=== PATIENT | male | born 1960 | race Caucasian/White ===

== ENCOUNTER → 2017-09-24 | Outpatient (CLI) | payer BC ==
[~2017-09-24] MED LIST: BENA20TA2 PO; BNZ40T PO; DILT240C90 PO; INSASP10V SC; INSU100I23 SC; INSU100I29 SC; INSU100V SQ; METF-380 PO; METF1000 PO; NIAC125C3 PO; NIAC1CAP PO; NIAC500T24 PO; levamir SQ
== END ==
LOC: CARD 11:46
PROVIDERS: ATTEND Nurse Practitioner Family
DX: I48.92 Unspecified atrial flutter (principal); I35.8 Other nonrheumatic aortic valve disorders; I34.0 Nonrheumatic mitral (valve) insufficiency; I07.1 Rheumatic tricuspid insufficiency; I10 Essential (primary) hypertension
CPT/HCPCS: 93306

== ENCOUNTER 2018-02-05 08:22 | Emergency (ER) | payer BC ==
[~2018-02-05] VITALS: Ht 182.9 cm; Wt 122.5 kg
[~2018-02-05 08:22] MED LIST changes: -METF1000 PO; +METF10002 PO
[2018-02-05 08:40] LABS: BASOPHILS # (AUTO) 0.1 10^3/uL (0.0-0.1); BASOPHILS % (AUTO) 1 % (0-10); EOSINOPHILS # (AUTO) 0.2 10^3/uL (0.0-0.3); EOSINOPHILS % (AUTO) 3 % (0-10); HEMATOCRIT 48 % (40-54); HEMOGLOBIN 16.8 G/DL (13.3-17.7); LYMPHOCYTES # (AUTO) 1.9 X 10^3 (1.0-4.0); LYMPHOCYTES % (AUTO) 20 % (12-44); MEAN CORPUSCULAR HEMOGLOBIN 30 PG (25-34); MEAN CORPUSCULAR HGB CONC 35 G/DL (32-36); MEAN CORPUSCULAR VOLUME 87 FL (80-99); MEAN PLATELET VOLUME 9.2 FL (7.4-10.4); MONOCYTES # (AUTO) 0.6 X 10^3 (0.0-1.0); MONOCYTES % (AUTO) 7 % (0-12); NEUTROPHILS # (AUTO) 6.6 X 10^3 (1.8-7.8); NEUTROPHILS % (AUTO) 70 % (42-75); PLATELET COUNT 355 10^3/uL (130-400); RED BLOOD COUNT 5.55 10^6/uL (4.35-5.85); RED CELL DISTRIBUTION WIDTH 13.4 % (10.0-14.5); WHITE BLOOD COUNT 9.4 10^3/uL (4.3-11.0)
[2018-02-05 08:56] LABS: INR 1.1 (0.8-1.4); PROTHROMBIN TIME PATIENT 14.5 SEC (12.2-14.7)
[2018-02-05] MEDS ORDERED: DILTIAZEM 240 MG (CARDIZEM CD) CAP PO ONE (09:00)
[2018-02-05 09:03] LABS: ALANINE AMINOTRANSFERASE 19 U/L (0-55); ALBUMIN 4.1 GM/DL (3.2-4.5); ALKALINE PHOSPHATASE 101 U/L (40-136); BILIRUBIN,TOTAL 0.5 MG/DL (0.1-1.0); BUN/CREATININE RATIO 19; CALCIUM 9.3 MG/DL (8.5-10.1); CARBON DIOXIDE 24 MMOL/L (21-32); CHLORIDE 102 MMOL/L (98-107); CREATININE SERUM 1.18 MG/DL (0.60-1.30); GFR ESTIMATED > 60; GLUCOSE 238 MG/DL (70-105); POTASSIUM 4.3 MMOL/L (3.6-5.0); SODIUM 138 MMOL/L (135-145); TOTAL PROTEIN 6.6 GM/DL (6.4-8.2)
[2018-02-05 09:09] LABS: MYOGLOBIN SERUM 70.7 NG/ML (10.0-92.0)
--- NOTE | 2018-02-05 09:17 | Diagnostic Imaging Report ---
INDICATION: Atrial fibrillation. EXAMINATION: Frontal chest obtained at 08:59 hours a.m. and compared with 05/01/2015. FINDINGS: Heart and mediastinal silhouette are normal in appearance. The lungs are clear. There is no pneumothorax or pleural fluid. IMPRESSION: Negative chest. Dictated by: Dictated on workstation # [id number]
--- NOTE | 2018-02-05 10:28 | ED Cardiac General ---
History of Present Illness General Chief Complaint: Cardiac/General Problems Stated Complaint: FLUTTERING IN CHEST Nursing Triage Note: PMH OF A FIB HAS HAD IRREGULAR HR SINCE LAST NIGHT. Source: patient Exam Limitations: no limitations History of Present Illness Date Seen by Provider: Feb 05, 2018 Time Seen by Provider: 08:27 Initial Comments This 57-year-old gentleman presents to the emergency room with complaints of tachycardia and palpitations started last night and have been persistent since. He has a history of paroxysmal atrial fibrillation/flutter. He is already anticoagulated on Eliquis and has taken his dose this morning. He also takes diltiazem XT 240 mg. He is current on his doses. He additionally takes metoprolol 25 mg daily. He denies any chest pain or shortness of breath. 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 He is noted to be in atrial flutter with rapid ventricular response on the monitor. Allergies and Home Medications Allergies Coded Allergies: No Known Drug Allergies (Unverified , 06/24/12) Home Medications Benazepril HCl 20 Mg Tablet, 20 MG PO DAILY, (Reported) Diltiazem HCl 240 Mg Cap.er.24h, 240 MG PO DAILY Prescribed by: SULAIMAN CARRINGTON on 05/03/15 1857 Diltiazem HCl 360 Mg Cap.er.24h, 360 MG PO DAILY Prescribed by: HEYDI WRAY on 02/05/18 1040 Insulin Detemir 100 Unit/1 Ml Insuln.pen, 42-44 UNITS SC HS, (Reported) Insulin Lispro 100 Unit/1 Ml Insuln.pen, 16 UNITS SC AC, (Reported) Metformin HCl 1,000 Mg Tablet, 1,000 MG PO BID, (Reported) Niacin (Inositol Niacinate) 500 Mg Capsule, 1,000 MG PO DAILY, (Reported) TAKES 2 (500MG) CAPSULES Patient Home Medication List Home Medication List Reviewed: Yes Review of Systems Constitutional: no symptoms reported EENTM: No Symptoms Reported Respiratory: No Symptoms Reported Cardiovascular: See HPI Gastrointestinal: No Symptoms Reported Genitourinary: No Symptoms Reported Musculoskeletal: no symptoms reported Skin: no symptoms reported Psychiatric/Neurological: No Symptoms Reported Endocrine: No Symptoms Reported Past Pzpdvue-Scoqeo-Iwlimw Hx Patient Social History Alcohol Use: Denies Use Recreational Drug Use: No Smoking Status: Never a Smoker Recent Foreign Travel: No Contact w/Someone Who Travel: No Recent Infectious Disease Expo: No Seasonal Allergies Seasonal Allergies: No Past Medical History Surgeries: Yes (uvulectomy, NECK FUSION (C5-C7)) Orthopedic Respiratory: Yes (C-PAP) Sleep Apnea Currently Using CPAP: Yes Cardiac: Yes Atrial Fibrillation, Hypertension Neurological: No Reproductive Disorders: No Gastrointestinal: No Musculoskeletal: No Endocrine: Yes Diabetes, Insulin dep, Diabetes, Non-Insulin dep Cancer: No Psychosocial: No Integumentary: No Blood Disorders: No Family Medical History Diabetes mellitus 19 MOTHER Lip cancer 19 FATHER Parkinson's disease 19 FATHER Diabetes Physical Exam Vital Signs Vital Signs - First Documented 02/05/18 08:22 Temp 98.0 Pulse 124 Resp 18 B/P (MAP) 133/104 (114) Pulse Ox 97 O2 Delivery Room Air Capillary Refill : Less Than 3 Seconds General Appearance: No Apparent Distress, WD/WN HEENT: PERRL/EOMI, Normal ENT Inspection Neck: Normal Inspection Respiratory: Lungs Clear, Normal Breath Sounds, No Accessory Muscle Use, No Respiratory Distress Cardiovascular: No Edema, No Murmur, Tachycardia Gastrointestinal: Non Tender, Soft Extremity: Normal Inspection, No Pedal Edema Neurologic/Psychiatric: Alert, Oriented x3, No Motor/Sensory Deficits, Normal 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, 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 Norm as Tested Skin: Normal Color, Warm/Dry Progress/Results/Core Measures Results/Orders Lab Results Laboratory Tests Test 02/05/18 08:32 Range/Units White Blood Count 9.4 4.3-11.0 10^3/uL Red Blood Count 5.55 4.35-5.85 10^6/uL Hemoglobin 16.8 13.3-17.7 G/DL Hematocrit 48 40-54 % Mean Corpuscular Volume 87 80-99 FL Mean Corpuscular Hemoglobin 30 25-34 PG Mean Corpuscular Hemoglobin Concent 35 32-36 G/DL Red Cell Distribution Width 13.4 10.0-14.5 % Platelet Count 355 130-400 10^3/uL Mean Platelet Volume 9.2 7.4-10.4 FL Neutrophils (%) (Auto) 70 42-75 % Lymphocytes (%) (Auto) 20 12-44 % Monocytes (%) (Auto) 7 0-12 % Eosinophils (%) (Auto) 3 0-10 % Basophils (%) (Auto) 1 0-10 % Neutrophils # (Auto) 6.6 1.8-7.8 X 10^3 Lymphocytes # (Auto) 1.9 1.0-4.0 X 10^3 Monocytes # (Auto) 0.6 0.0-1.0 X 10^3 Eosinophils # (Auto) 0.2 0.0-0.3 10^3/uL Basophils # (Auto) 0.1 0.0-0.1 10^3/uL Prothrombin Time 14.5 12.2-14.7 SEC INR Comment 1.1 0.8-1.4 Activated Partial Thromboplast Time 39 H 24-35 SEC Sodium Level 138 135-145 MMOL/L Potassium Level 4.3 3.6-5.0 MMOL/L Chloride Level 102 98-107 MMOL/L Carbon Dioxide Level 24 21-32 MMOL/L Anion Gap 12 5-14 MMOL/L Blood Urea Nitrogen 23 H 7-18 MG/DL Creatinine 1.18 0.60-1.30 MG/DL Estimat Glomerular Filtration Rate > 60 BUN/Creatinine Ratio 19 Glucose Level 238 H 70-105 MG/DL Calcium Level 9.3 8.5-10.1 MG/DL Magnesium Level 2.0 1.8-2.4 MG/DL Total Bilirubin 0.5 0.1-1.0 MG/DL Aspartate Amino Transf (AST/SGOT) 15 5-34 U/L Alanine Aminotransferase (ALT/SGPT) 19 0-55 U/L Alkaline Phosphatase 101 40-136 U/L Myoglobin 70.7 10.0-92.0 NG/ML Troponin I < 0.30 <0.30 NG/ML Total Protein 6.6 6.4-8.2 GM/DL Albumin 4.1 3.2-4.5 GM/DL My Orders Orders - HEYDI HEAD MD Cbc With Automated Diff (02/05/18 08:27) Magnesium (02/05/18 08:27) Chest 1 View, Ap/Pa Only (02/05/18:) Ekg Tracing (02/05/18:) Cardiac Profile 1 (02/05/18 08:) Comprehensive Metabolic Panel (02/05/18 08:) Myoglobin Serum (02/05/18 08:27) Protime With Inr (02/05/18 08:27) Partial Thromboplastin Time (02/05/18 08:27) O2 (02/05/18 08:27) Monitor-Rhythm Ecg Trace Only (02/05/18 08:27) Saline Lock/Iv-Start (02/05/18 08:27) Diltiazem Cd 24 Hr Capsule (Cardizem Cd (02/05/18 09:00) Medications Given in ED Vital Signs/I&O 02/05/18 02/05/18 08:22 10:44 Temp 98.0 Pulse 124 81 Resp 18 18 B/P (MAP) 133/104 (114) 116/71 Pulse Ox 97 98 O2 Delivery Room Air Blood Pressure Mean: 114 Progress Progress Note : Time: 10:34 Progress Note Case was reviewed with Dr. Valencia who recommended giving an additional dose of diltiazem 240 orally now. He advised watching the patient for one hour and potentially dismissing home if heart rate was acceptable. Heart rate is now in the 80s to 110s. Patient is feeling fine. Dr. Valencia recommended increasing his diltiazem to 360 mg to start tomorrow. Patient will continue on Eliquis. Diagnostic Imaging Diagonstic Imaging: Xray Plain Films/CT/US/NM/MRI: chest Comments Chest x-ray viewed by me and report reviewed. See report below: NAME: GARRETT THAYER [facility] REC#: [id number] PT STATUS: REG ER : 1960 PHYSICIAN: HEYDI HEAD MD ADMIT DATE: 02/05/18/ER Draft Date of Exam:02/05/18 CHEST 1 VIEW, AP/PA ONLY INDICATION: Atrial fibrillation. EXAMINATION: Frontal chest obtained at 08:59 hours a.m. and compared with 05/01/2015. FINDINGS: Heart and mediastinal silhouette are normal in appearance. The lungs are clear. There is no pneumothorax or pleural fluid. IMPRESSION: Negative chest. Dictated on workstation # [id number] Dict: 02/05/18910 Trans: 02/05/18 0917 [facility] [id number] Interpreted by: SHIRLENE SEGURA MD Departure Impression Primary Impression: Atrial flutter with rapid ventricular response Disposition: 01 HOME, SELF-CARE Condition: Improved Departure-Patient Inst. Decision time for Depature: 10:20 Referrals: FARIHA CRAFT MD (PCP/Family) Primary Care Physician Patient Instructions: Atrial Flutter Add. Discharge Instructions: Continue taking Eliquis as previously prescribed. Increase her diltiazem to 360 mg dose prescribed today. Please contact Dr. Cadet's office as soon as possible to schedule follow-up. Return to emergency room if you have worsening symptoms. All discharge instructions reviewed with patient and/or family. Voiced understanding. Scripts Diltiazem HCl (Diltiazem 24Hr Cd) 360 Mg Cap.er.24h 360 MG PO DAILY, #30 CAP Prov: HEYDI HEAD MD 02/05/18 Copy Copies To 1: JO[facility] VALENCIA MD [facility] HEYDI HEAD MD Feb 05, 2018 10:28
[2018-02-05] MEDS ORDERED: DILT360C29 PO (10:40)
[2018-02-05 10:44] VITALS: BP 116/71
== END 2018-02-05 10:44 | disposition home or self-care (01) ==
LOC: EDUNIT# 08:22 → ER 08:24
DX: I48.92 Unspecified atrial flutter (principal); I48.0 Paroxysmal atrial fibrillation; G47.30 Sleep apnea, unspecified; I10 Essential (primary) hypertension; E11.9 Type 2 diabetes mellitus without complications; Z79.01 Long term (current) use of anticoagulants; Z79.4 Long term (current) use of insulin; Z98.1 Arthrodesis status; Z85.818 Personal history of malignant neoplasm of other sites of lip, oral cavity, and pharynx; Z90.89 Acquired absence of other organs
CPT/HCPCS: 36415; 71045; 80053; 83735; 83874; 84484; 85025; 85610; 85730; 93005; 93041

== ENCOUNTER → 2018-02-21 | Outpatient (CLI) | payer BC ==
[~2018-02-21] MED LIST changes: +DILT360C29 PO
== END ==
LOC: CARD 14:51
PROVIDERS: ATTEND Nurse Practitioner Family
DX: I48.0 Paroxysmal atrial fibrillation (principal); I10 Essential (primary) hypertension; I71.2 Thoracic aortic aneurysm, without rupture; E11.59 Type 2 diabetes mellitus with other circulatory complications
CPT/HCPCS: 93225; 93226

== ENCOUNTER → 2018-03-12 | Outpatient (CLI) | payer BC ==
[~2018-03-12] MED LIST changes: +ALPR0.5T7 PO; +APIX5TAB PO; -BENA20TA2 PO; +BENA20TA7 PO; +CATHETER FLUSH 10 ML SYR IV PRN; +DILT360C36 PO; +ESCI10TA55 PO; +INSU100I14 SC; +METO-387 PO; +REGADENOSON 0.4 MG/5 ML SYR (LEXISCAN) IV ONE
[2018-03-12 09:08] VITALS: BP 142/99
[2018-03-12 09:10] VITALS: BP 123/87
--- NOTE | 2018-03-14 13:12 | STRESS TEST ---
DATE OF SERVICE: 03/12/2018 RESTING AND POST REGADENOSON TECHNETIUM 99M TETROFOSMIN SPECT CT IMAGING ORDERING PHYSICIAN: Mimi Parrish APRN PRIMARY PHYSICIAN: Antonio Hawthorne MD. CLINICAL DIAGNOSES: Palpitations. Baseline images were carried out after injection of 10.98 mCi of technetium-99m Tetrofosmin. This was followed by 0.4 mg regadenoson and 30.2 mCi technetium-99m Tetrofosmin for stress imaging. The patient reported lightheadedness and abdominal cramping following regadenoson infusion, which resolved in a few minutes. The electrocardiogram showed atrial flutter with a rapid ventricular response throughout the study. Review of images at rest and following stress does not indicate any significant myocardial ischemia or infarction. Gated images show normal global left ventricular systolic function. Normal regional wall motion. Left ventricular ejection fraction is calculated to be 58%. CONCLUSIONS: 1. No evidence of significant myocardial ischemia or infarction on this study. 2. Normal regional wall motion. 3. Normal global left ventricular systolic function with a calculated ejection fraction of 58%. 4. Atrial flutter with a rapid ventricular response is seen throughout the study. Job ID: [id number] DocumentID: [id number] Dictated Date: 03/14/2018 12:45:18 Car Lubricator Date: 03/14/2018 13:10:58 Dictated By: JOSE FREDERICK MD, MA, FACP, FACC,
== END ==
LOC: CARD 07:33
PROVIDERS: ATTEND Nurse Practitioner Family
DX: R00.2 Palpitations (principal); I48.92 Unspecified atrial flutter
CPT/HCPCS: 78452; 93017

== ENCOUNTER 2018-03-19 09:02 | Day surgery (SDC) | payer BC ==
[~2018-03-19] VITALS: Ht 182.9 cm; Wt 122.5 kg
[2018-03-19] VITALS (14 sets, daily range): BP systolic 118–136; BP diastolic 74–92
[~2018-03-19 09:02] MED LIST changes: -ALPR0.5T7 PO; -APIX5TAB PO; -CATHETER FLUSH 10 ML SYR IV PRN; -DILT360C36 PO; -ESCI10TA55 PO; -INSU100I14 SC; -METO-387 PO; -REGADENOSON 0.4 MG/5 ML SYR (LEXISCAN) IV ONE
[2018-03-19] MEDS ORDERED: NS IV 1000 ML 1,000 ML ONE (09:22)
[2018-03-19 09:57] LABS: MEAN PLATELET VOLUME 9.2 FL (7.4-10.4); RED BLOOD COUNT 5.03 10^6/uL (4.35-5.85); RED CELL DISTRIBUTION WIDTH 13.1 % (10.0-14.5); WHITE BLOOD COUNT 7.2 10^3/uL (4.3-11.0)
[2018-03-19] MEDS ORDERED: NS IV 1000 ML 1,000 ML IV SCH (10:00)
[2018-03-19 10:08] LABS: INR 1.2 (0.8-1.4); PROTHROMBIN TIME PATIENT 14.8 SEC (12.2-14.7)
[2018-03-19 10:18] LABS: ALANINE AMINOTRANSFERASE 21 U/L (0-55); ALKALINE PHOSPHATASE 82 U/L (40-136); BILIRUBIN,TOTAL 0.6 MG/DL (0.1-1.0); BUN/CREATININE RATIO 19; CARBON DIOXIDE 29 MMOL/L (21-32); CHLORIDE 103 MMOL/L (98-107); CHOLESTEROL 195 MG/DL (< 200); CREATININE SERUM 1.09 MG/DL (0.60-1.30); GFR ESTIMATED > 60; GLUCOSE 194 MG/DL (70-105); HDL CHOLESTEROL 40 MG/DL (40-60); POTASSIUM 4.8 MMOL/L (3.6-5.0); SODIUM 138 MMOL/L (135-145); TOTAL PROTEIN 6.2 GM/DL (6.4-8.2); TRIGLYCERIDES 68 MG/DL (<150); VLDL CHOLESTEROL 14 MG/DL (5-40)
[2018-03-19] MEDS ORDERED: ESCI10TA55 PO (10:50)
[2018-03-19] MEDS ORDERED: DILT360C36 PO (10:50)
[2018-03-19] MEDS ORDERED: INSU100I14 SC (10:50)
[2018-03-19] MEDS ORDERED: ALPR0.5T7 PO (10:50)
[2018-03-19] MEDS ORDERED: METO-387 PO (10:50)
[2018-03-19] MEDS ORDERED: APIX5TAB PO (10:50)
[2018-03-19] MEDS ORDERED: MIDAZOLAM 2 MG/2 ML (VERSED) VIAL ONE (11:14)
[2018-03-19] MEDS ORDERED: proPOfol 200 MG/20 ML (DIPRIVAN) VIAL IV ONE (11:14)
--- NOTE | 2018-03-19 11:45 | Cardiac Procedure Note-CS/ASA ---
Pre-Procedure Note Pre-Op Procedure Note H&P Reviewed The H&P was reviewed, patient examined and no changes noted. Date H&P Reviewed: Mar 19, 2018 Time H&P Reviewed: 11:25 Conscious Sedation Pre-Proced Time Reviewed: 11:25 ASA Class: 3 Airway Mallampati Classification: ([place] appropriate class) I. II. III, IV Lungs Heart ASA score ASA 1: a normal healthy patient ASA 2: a patient with a mild systemic disease (mid diabetes, controlled hypertension, obesity ASA 3: a patient with a severe systemic disease that limits activity (angina , COPD, prior Myocardial infarction) ASA 4: a patient with an incapacitating disease that is a constant threat to life (CHF, renal failure) ASA 5: a moribund patient not expected to survive 24 hrs. (ruptured aneurysm) ASA 6: a declared brain patient whose organs are being harvested. For emergent operations, add the letter E after the classification Grade 2 Sedation Plan: Analgesia, Amnesia, Plan communicated to team members, Discussed options with patient/fam, Discussed risks with patient/fam Note The patient is an appropriate candidate to undergo the planned procedure, sedation, and anesthesia. The patient immediately re-assessed prior to indication. JOSE FREDERICK MD FACP FAC CCDS Mar 19, 2018 11:45
--- NOTE | 2018-03-19 11:47 | Discharge Inst-Cardiology ---
Discharge Inst-Cardiac Discharge Medications Continued Medications: Alprazolam (Alprazolam) 0.5 Mg Tablet 0.5 MG PO TID PRN for ANXIETY, TAB Apixaban (Eliquis) 5 Mg Tablet 5 MG PO BID, TAB Benazepril HCl (Benazepril HCl) 20 Mg Tablet 20 MG PO DAILY, TAB Diltiazem HCl (Diltiazem 24Hr ER) 360 Mg Cap.er.24h 360 MG PO DAILY, CAP Escitalopram Oxalate (Escitalopram Oxalate) 10 Mg Tablet 10 MG PO HS, TAB Insulin Aspart (Novolog Flexpen) 300 Units/3 Ml Solution 12 UNITS SC AC, EA Insulin Detemir (Levemir Flextouch) 100 Unit/1 Ml Insuln.pen 48 UNITS SC HS, EA Metformin HCl (Metformin HCl) 1,000 Mg Tablet 1000 MG PO BID WITH MEALS, TAB Metoprolol Succinate (Metoprolol Succinate) 25 Mg Tab.er.24h 25 MG PO HS, TAB Niacin (Inositol Niacinate) (Niacin 500 mg Capsule) 500 Mg Capsule 1000 MG PO DAILY, CAP TAKES 2 (500MG) CAPSULES Patient Instructions Patient Instructions: F/u with Dr Valencia in 6 weeks JOSE VALENCIA MD FACP FAC CCDS Mar 19, 2018 11:47
--- NOTE | 2018-03-19 13:08 | Anesthesia-Procedure Note ---
Procedures/Interventions Procedure Start/Stop/Diagnosis Date of Procedure: Mar 19, 2018 Start Time: 11:28 Referring Physician: Erik Preprocedural Diagnosis: Atrial Flutter Brief History Called to blood bank laboratory technician for cardioversion of pt with new onset Atrial Flutter. ASA 3. All monitors applied and emergency equipment verified. NPO status confirmed. O2 per NC at 4lpm. Pt was given propofol boluses for a total of 100mg. Cardioversion successful with conversion to SR. Recovered pt in room until opening eyes. Report given to RN Stop Time: 11:40 Postprocedural Diagnosis: Atrial Flutter ANA LAURA RIOS CRNA Mar 19, 2018 13:08
--- NOTE | 2018-03-19 17:26 | OPERATIVE REPORT ---
DATE OF SERVICE: 03/19/2018 PREOPERATIVE DIAGNOSIS: Atrial flutter. POSTOPERATIVE DIAGNOSIS: Sinus rhythm. INDICATION: The patient is a 57-year-old man who has atrial flutter that has persisted for several weeks. He has been fully treated with apixaban for several weeks without any interruption. He is on beta-blockers and calcium channel blockers. DESCRIPTION OF PROCEDURE: External electrical cardioversion was carried out today after having obtained an informed consent. The nursing home assistant administrator delivered short-acting anesthesia and 50 joules synchronized shock was delivered through external patches, which restored sinus rhythm. He tolerated the procedure well. Job ID: [id number] DocumentID: [id number] Dictated Date: 03/19/2018 11:58:07 Cost Control Specialist Date: 03/19/2018 17:25:40 Dictated By: JOSE FREDERICK MD, MA, FACP, FACC,
== END 2018-03-19 14:00 | disposition home or self-care (01) ==
LOC: CATH 09:02
PROVIDERS: ATTEND Internal Medicine Cardiovascular Disease
DX: I48.92 Unspecified atrial flutter (principal); I71.4 Abdominal aortic aneurysm, without rupture; I35.8 Other nonrheumatic aortic valve disorders; E11.9 Type 2 diabetes mellitus without complications; I10 Essential (primary) hypertension; G47.33 Obstructive sleep apnea (adult) (pediatric); E66.9 Obesity, unspecified; Z68.36 Body mass index [BMI] 36.0-36.9, adult; Z79.01 Long term (current) use of anticoagulants; Z79.4 Long term (current) use of insulin; Z79.899 Other long term (current) drug therapy
CPT/HCPCS: 36415; 80053; 80061; 85027; 85610; 85730; 87081; 92960; 93005

== ENCOUNTER 2018-05-07 09:41 | Day surgery (SDC) | payer BC ==
[2018-05-07] VITALS (11 sets, daily range): BP systolic 99–135; BP diastolic 2–86
[~2018-05-07] VITALS: Ht 185.4 cm; Wt 124.7 kg
[~2018-05-07 09:41] MED LIST changes: +ALPR0.5T7 PO; +APIX5TAB PO; +DILT360C36 PO; +ESCI10TA55 PO; +INSU100I14 SC; +METF-399 PO; -METF10002 PO; +METO-387 PO
--- OUTSIDE RECORDS SUMMARY | 2018-05-07 09:50 | XMS REPORT | Continuity of Care Document ---
Author Author [facility] Organization [facility] Address Unknown Phone Unavailable Allergies Active Description Code Type Severity Reaction Onset Reported/Identified Relationship to Patient Clinical Status Yes No Known Drug Allergies [id number] Drug Allergy Unknown N/A 06/24/2012 Medications There is no data. Problems Date Dx Coded Attending Type Code Diagnosis Diagnosed By 06/24/2012 Ot 250.00 DIAB ADA WO COMPL, TYPE II OR UNSPEC TY 06/24/2012 Ot 272.0 PURE HYPERCHOLESTEROLEM 06/24/2012 Ot 401.9 HYPERTENSION NOS 06/24/2012 Ot V58.69 OTH MED,LT, CURRENT USE 06/24/2012 Ot V76.51 SCREEN MAL NEOP-COLON 05/03/2015 SULAIMAN CARRINGTON MD Ot 250.00 DIAB ADA WO COMPL, TYPE II OR UNSPEC TY 05/03/2015 SULAIMAN CARRINGTON MD Ot 278.00 OBESITY, NOS 05/03/2015 SULAIMAN CARRINGTON MD Ot 327.23 OBSTRUCTIVE SLEEP APNEA (ADULT) (PEDIATR 05/03/2015 SULAIMAN CARRINGTON MD Ot 401.9 HYPERTENSION NOS 05/03/2015 SULAIMAN CARRINGTON MD Ot 426.13 AV BLOCK-2ND DEGREE NEC 05/03/2015 SULAIMAN CARRINGTON MD Ot 427.32 ATRIAL FLUTTER 05/03/2015 SULAIMAN CARRINGTON MD Ot 722.6 DISC DEGENERATION NOS 05/03/2015 SULAIMAN CARRINGTON MD Ot V03.82 PROPHYLACTIC VACC AGAINST STREPTOCOCCUS 05/03/2015 SULAIMAN CARRINGTON MD Ot V85.38 BODY MASS INDEX 38.0-38.9, ADULT 07/13/2015 Ot 722.4 07/13/2015 Ot V72.84 07/27/2015 YOLY DONOHUE FACJens, JOSE BEARDP CCDS Ot E11.59 07/27/2015 YOLY DONOHUE FACC, JOSE FACP CCDS Ot G47.30 07/27/2015 YOLY BEARDC, ALI FACP CCDS Ot I10 07/27/2015 YOLY DONOHUE FACC, ALI FACP CCDS Ot I48.0 08/04/2015 YOLY BEARDC, ALI FACP CCDS Ot E11.59 08/04/2015 YOLY DONOHUE FACC, ALI FACP CCDS Ot G47.30 08/04/2015 YOLY DONOHUE FACC, ALI FACP CCDS Ot I10 08/04/2015 YOLY BEARDC, ALI FACP CCDS Ot I48.0 08/10/2015 TAINA BROOKE L USED CAR 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 Ot I71.2 08/19/2015 BAIMA, BROOKE L USED 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 Ot I71.2 04/12/2016 ROSE WATKINS APRN Ot R06.00 DYSPNEA, UNSPECIFIED 04/28/2016 ROSE WATKINS APRN Ot R06.00 DYSPNEA, UNSPECIFIED 09/17/2017 Ot V72.84 EXAM PRE- OPERATIVE NOS 09/17/2017 YOLY DONOHUE FACC, ALI FACP CCDS Ot E11.59 TYPE 2 DIABETES MELLITUS WITH OTH CIRCUL 09/17/2017 YOLY DONOHUE FACC, ALI FACP CCDS Ot G47.30 SLEEP APNEA, UNSPECIFIED 09/17/2017 YOLY DONOHUE FACC, ALI FACP CCDS Ot I10 ESSENTIAL (PRIMARY) HYPERTENSION 09/17/2017 YOLY DONOHUE FACC, ALI FACP CCDS Ot I48.0 PAROXYSMAL ATRIAL FIBRILLATION 09/17/2017 LO HERHER L USED CAR 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 Ot I71.2 THORACIC AORTIC ANEURYSM, WITHOUT RUPTUR 09/17/2017 ROSE WATKINS APRN Ot R06.00 DYSPNEA, UNSPECIFIED 09/21/2017 Ot V72.84 EXAM PRE- OPERATIVE NOS 09/21/2017 YOLY DONOHUE FACC, ALI FACP CCDS Ot E11.59 TYPE 2 DIABETES MELLITUS WITH OTH CIRCUL 09/21/2017 YOLY DONOHUE FACC, ALI FACP CCDS Ot G47.30 SLEEP APNEA, UNSPECIFIED 09/21/2017 YOLY BEARDC, ALI FACP CCDS Ot I10 ESSENTIAL (PRIMARY) HYPERTENSION 09/21/2017 YOLY BEARDC, ALI FACP CCDS Ot I48.0 PAROXYSMAL ATRIAL FIBRILLATION 09/21/2017 BAIMA, BROOKE L USED CAR 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 Ot I71.2 THORACIC AORTIC ANEURYSM, WITHOUT RUPTUR 09/21/2017 ROSE WATKINS APRN Ot R06.00 DYSPNEA, UNSPECIFIED 09/21/2017 Ot V72.84 EXAM PRE- OPERATIVE NOS 09/21/2017 YOLY DONOHUE FACC, JOSE FACP CCDS Ot E11.59 TYPE 2 DIABETES MELLITUS WITH OTH CIRCUL 09/21/2017 YOLY DONOHUE FACC, ALI FACP CCDS Ot G47.30 SLEEP APNEA, UNSPECIFIED 09/21/2017 YOLY DONOHUE FACC, ALI FACP CCDS Ot I10 ESSENTIAL (PRIMARY) HYPERTENSION 09/21/2017 YOLY DONOHUE FACC, ALI FACP CCDS Ot I48.0 PAROXYSMAL ATRIAL FIBRILLATION 09/21/2017 BAIMA, BROOKE L USED 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 Ot I71.2 THORACIC AORTIC ANEURYSM, WITHOUT RUPTUR 09/21/2017 ROSE WATKINS APRN Ot R06.00 DYSPNEA, UNSPECIFIED 09/25/2017 TAINA BROOKE L USED CAR 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 Ot I07.1 RHEUMATIC TRICUSPID INSUFFICIENCY 09/25/2017 BAIMA, BROOKE L USED CAR 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 Ot I10 ESSENTIAL (PRIMARY) HYPERTENSION 09/25/2017 BAIMA, BROOKE L USED CAR 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 Ot I34.0 NONRHEUMATIC MITRAL (VALVE) INSUFFICIENC 09/25/2017 BAIMA, BROOKE L USED CAR 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 Ot I35.8 OTHER NONRHEUMATIC AORTIC VALVE DISORDER 09/25/2017 BAIMA, BROOKE L USED CAR 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 Ot I48.92 UNSPECIFIED ATRIAL FLUTTER 09/30/2017 BAIMA, BROOKE L USED CAR 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 Ot I07.1 RHEUMATIC TRICUSPID INSUFFICIENCY 09/30/2017 BAIMA, BROOKE L USED CAR 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 Ot I10 ESSENTIAL (PRIMARY) HYPERTENSION 09/30/2017 BAIMA, BROOKE L USED CAR 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 Ot I34.0 NONRHEUMATIC MITRAL (VALVE) INSUFFICIENC 09/30/2017 BAIMA, BROOKE L USED CAR 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 Ot I35.8 OTHER NONRHEUMATIC AORTIC VALVE DISORDER 09/30/2017 BAIMA, BROOKE L USED CAR 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 Ot I48.92 UNSPECIFIED ATRIAL FLUTTER 10/11/2017 BAIMA, BROOKE L USED CAR 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 Ot I07.1 RHEUMATIC TRICUSPID INSUFFICIENCY 10/11/2017 BAIMA, BROOKE L USED CAR 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 Ot I10 ESSENTIAL (PRIMARY) HYPERTENSION 10/11/2017 BAIMA, BROOKE L USED CAR 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 Ot I34.0 NONRHEUMATIC MITRAL (VALVE) INSUFFICIENC 10/11/2017 BROOKE HER USED CAR 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 Ot I35.8 OTHER NONRHEUMATIC AORTIC VALVE DISORDER 10/11/2017 BROOKE HER USED CAR 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 Ot I48.92 UNSPECIFIED ATRIAL FLUTTER 02/05/2018 BROOKE HER USED CAR 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 Ot I07.1 RHEUMATIC TRICUSPID INSUFFICIENCY 02/05/2018 BROOKE HER USED CAR 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 Ot I10 ESSENTIAL (PRIMARY) HYPERTENSION 02/05/2018 BROOKE HER USED CAR 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 Ot I34.0 NONRHEUMATIC MITRAL (VALVE) INSUFFICIENC 02/05/2018 BROOKE HER USED CAR 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 Ot I35.8 OTHER NONRHEUMATIC AORTIC VALVE DISORDER 02/05/2018 BROOEK HER USED CAR 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 Ot I48.92 UNSPECIFIED ATRIAL FLUTTER 02/05/2018 HEYDI HEAD MD, Ot E11.9 TYPE 2 DIABETES MELLITUS WITHOUT COMPLIC 02/05/2018 HEYDI HEAD MD, Ot G47.30 SLEEP APNEA, UNSPECIFIED 02/05/2018 HEYDI HEAD MD Ot I10 ESSENTIAL (PRIMARY) HYPERTENSION 02/05/2018 HEYDI HEAD MD, Ot I48.0 PAROXYSMAL ATRIAL FIBRILLATION 02/05/2018 HEYDI HEAD MD, Ot I48.92 UNSPECIFIED ATRIAL FLUTTER 02/05/2018 HEYDI HEAD MD Ot R00.2 PALPITATIONS 02/05/2018 HEYDI HEAD MD, Ot Z79.01 PRISON (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 OF ANTICOAGULANT 02/05/2018 HEYDI HEAD MD Ot Z79.4 PRISON (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 OF INSULIN 02/05/2018 HEYDI HEAD MD, Ot 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, 02/05/2018 HEYDI HEAD MD, Ot Z90.89 ACQUIRED ABSENCE OF OTHER ORGANS 02/05/2018 HEYDI HEAD MD, Ot Z98.1 ARTHRODESIS STATUS 02/07/2018 HEYDI HEAD MD, Ot E11.9 TYPE 2 DIABETES MELLITUS WITHOUT COMPLIC 02/07/2018 BRUEGGEMANN MD, HEYDI T Ot G47.30 SLEEP APNEA, UNSPECIFIED 02/07/2018 HEYDI HEAD MD Ot I10 ESSENTIAL (PRIMARY) HYPERTENSION 02/07/2018 HEYDI HEAD MD Ot I48.0 PAROXYSMAL ATRIAL FIBRILLATION 02/07/2018 HEYDI HEAD MD Ot I48.92 UNSPECIFIED ATRIAL FLUTTER 02/07/2018 HEYDI HEAD MD Ot R00.2 PALPITATIONS 02/07/2018 HEYDI HEAD MD Ot Z79.01 PRISON (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 OF ANTICOAGULANT 02/07/2018 HEYDI HEAD MD, Ot Z79.4 BRIDGE TOLL COLLECTOR (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 OF INSULIN 02/07/2018 HEYDI HEAD MD, Ot 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, 02/07/2018 HEYDI HEAD MD Ot Z90.89 ACQUIRED ABSENCE OF OTHER ORGANS 02/07/2018 HEYDI HEAD MD Ot Z98.1 ARTHRODESIS STATUS 02/19/2018 BROOKE HER 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 CAR 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 Ot I07.1 RHEUMATIC TRICUSPID INSUFFICIENCY 02/19/2018 BROOKE HER USED CAR 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 Ot I10 ESSENTIAL (PRIMARY) HYPERTENSION 02/19/2018 BROOKE HER USED CAR 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 Ot I34.0 NONRHEUMATIC MITRAL (VALVE) INSUFFICIENC 02/19/2018 BROOKE HER USED CAR 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 Ot I35.8 OTHER NONRHEUMATIC AORTIC VALVE DISORDER 02/19/2018 BROOKE HER USED CAR 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 Ot I48.92 UNSPECIFIED ATRIAL FLUTTER 03/13/2018 BROOKE HER L USED CAR 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 Ot I48.92 UNSPECIFIED ATRIAL FLUTTER 03/13/2018 BROOKE HER USED CAR 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 Ot R00.2 PALPITATIONS 03/14/2018 BROOKE HER USED CAR 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 Ot E11.59 TYPE 2 DIABETES MELLITUS WITH OTH CIRCUL 03/14/2018 BROOKE HER L USED CAR 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 Ot I10 ESSENTIAL (PRIMARY) HYPERTENSION 03/14/2018 BROOKE HER USED CAR 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 Ot I48.0 PAROXYSMAL ATRIAL FIBRILLATION 03/14/2018 BROOKE HER USED CAR 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 Ot I71.2 THORACIC AORTIC ANEURYSM, WITHOUT RUPTUR 03/19/2018 YOLY BEARDC, ALI FACP CCDS Ot E11.9 TYPE 2 DIABETES MELLITUS WITHOUT COMPLIC 03/19/2018 YOLY BEARDC, ALI FACP CCDS Ot E66.9 OBESITY, UNSPECIFIED 03/19/2018 YOLY DONOHUE FACC, ALI FACP CCDS Ot G47.33 OBSTRUCTIVE SLEEP APNEA (ADULT) (PEDIATR 03/19/2018 YOLY BEARDC, ALI FACP CCDS Ot I10 ESSENTIAL (PRIMARY) HYPERTENSION 03/19/2018 YOLY DONOHUE FACC, ALI FACP CCDS Ot I35.8 OTHER NONRHEUMATIC AORTIC VALVE DISORDER 03/19/2018 YOLY BEARDC, ALI FACP CCDS Ot I48.92 UNSPECIFIED ATRIAL FLUTTER 03/19/2018 YOLY BEARDC, ALI FACP CCDS Ot I71.4 ABDOMINAL AORTIC ANEURYSM, WITHOUT RUPTU 03/19/2018 YOLY DONOHUE FACC, ALI FACP CCDS Ot Z68.36 BODY MASS INDEX (BMI) 36.0-36.9, ADULT 03/19/2018 YOLY DONOHUE FACC, ALI FACP CCDS Ot Z79.01 PRISON (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 OF ANTICOAGULANT 03/19/2018 YOLY DONOHUE FACC, ALI FACP CCDS Ot Z79.4 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 TOLL COLLECTOR (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 OF 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 03/19/2018 YOLY DONOHUE FACC, ALI FACP CCDS Ot Z79.899 OTHER BRIDGE TOLL COLLECTOR (CURRENT) DRUG THERAPY 03/20/2018 YOLY DONOHUE FACC, ALI FACP CCDS Ot E11.9 TYPE 2 DIABETES MELLITUS WITHOUT COMPLIC 03/20/2018 YOLY DONOHUE FACC, ALI FACP CCDS Ot E66.9 OBESITY, UNSPECIFIED 03/20/2018 YOLY DONOHUE FACC, ALI FACP CCDS Ot G47.33 OBSTRUCTIVE SLEEP APNEA (ADULT) (PEDIATR 03/20/2018 YOLY DONOHUE FACC, ALI FACP CCDS Ot I10 ESSENTIAL (PRIMARY) HYPERTENSION 03/20/2018 YOLY DONOHUE FACC, ALI FACP CCDS Ot I35.8 OTHER NONRHEUMATIC AORTIC VALVE DISORDER 03/20/2018 YOLY DONOHUE FACC, ALI FACP CCDS Ot I48.92 UNSPECIFIED ATRIAL FLUTTER 03/20/2018 YOLY BEARDC, ALI FACP CCDS Ot I71.4 ABDOMINAL AORTIC ANEURYSM, WITHOUT RUPTU 03/20/2018 YOLY DONOHUE FACC, JOSE KISHAP CCDS Ot Z68.36 BODY MASS INDEX (BMI) 36.0-36.9, ADULT 03/20/2018 JOSE FREDERICK MD, FACC, FACP CCDS Ot Z79.01 PRISON (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 OF ANTICOAGULANT 03/20/2018 YOLY DONOHUE FACC, JOSE KISHAP CCDS Ot Z79.4 PRISON (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 OF INSULIN 03/20/2018 JOSE FREDERICK MD, FACC KISHAP CCDS Ot Z79.899 OTHER PRISON (CURRENT) DRUG THERAPY Procedures There is no data. Results Test Result Range Complete blood count (CBC) with automated white blood cell (WBC) differential - 02/05/18 08:32 Blood leukocytes automated count (number/volume) 9.4 10*3/uL 4.3-11.0 Blood erythrocytes automated count (number/volume) 5.55 10*6/uL 4.35-5.85 Venous blood hemoglobin measurement (mass/volume) 16.8 g/dL 13.3-17.7 Blood hematocrit (volume fraction) 48 % 40-54 Automated erythrocyte mean corpuscular volume 87 [foz_us] 80-99 Automated erythrocyte mean corpuscular hemoglobin (mass per erythrocyte) 30 pg 25-34 Automated erythrocyte mean corpuscular hemoglobin concentration measurement ( mass/volume) 35 g/dL 32-36 Automated erythrocyte distribution width ratio 13.4 % 10.0-14.5 Automated blood platelet count (count/volume) 355 10*3/uL 130-400 Automated blood platelet mean volume measurement 9.2 [foz_us] 7.4-10.4 Automated blood neutrophils/100 leukocytes 70 % 42-75 Automated blood lymphocytes/100 leukocytes 20 % 12-44 Blood monocytes/100 leukocytes 7 % 0-12 Automated blood eosinophils/100 leukocytes 3 % 0-10 Automated blood basophils/100 leukocytes 1 % 0-10 Blood neutrophils automated count (number/volume) 6.6 10*3 1.8-7.8 Blood lymphocytes automated count (number/volume) 1.9 10*3 1.0-4.0 Blood monocytes automated count (number/volume) 0.6 10*3 0.0-1.0 Automated eosinophil count 0.2 10*3/uL 0.0-0.3 Automated blood basophil count (count/volume) 0.1 10*3/uL 0.0-0.1 Comprehensive metabolic panel - 02/05/18 08:32 Serum or plasma sodium measurement (moles/volume) 138 mmol/L 135-145 Serum or plasma potassium measurement (moles/volume) 4.3 mmol/L 3.6-5.0 Serum or plasma chloride measurement (moles/volume) 102 mmol/L 98-107 Carbon dioxide 24 mmol/L 21-32 Serum or plasma anion gap determination (moles/volume) 12 mmol/L 5-14 Serum or plasma urea nitrogen measurement (mass/volume) 23 mg/dL 7-18 Serum or plasma creatinine measurement (mass/volume) 1.18 mg/dL 0.60-1.30 Serum or plasma urea nitrogen/creatinine mass ratio 19 NRG Serum or plasma creatinine measurement with calculation of estimated glomerular filtration rate > NRG Serum or plasma glucose measurement (mass/volume) 238 mg/dL 70-105 Serum or plasma calcium measurement (mass/volume) 9.3 mg/dL 8.5-10.1 Serum or plasma total bilirubin measurement (mass/volume) 0.5 mg/dL 0.1-1.0 Serum or plasma alkaline phosphatase measurement (enzymatic activity/volume) 101 U/L 40-136 Serum or plasma aspartate aminotransferase measurement (enzymatic activity/ volume) 15 U/L 5-34 Serum or plasma alanine aminotransferase measurement (enzymatic activity/volume ) 19 U/L 0-55 Serum or plasma protein measurement (mass/volume) 6.6 g/dL 6.4-8.2 Serum or plasma albumin measurement (mass/volume) 4.1 g/dL 3.2-4.5 Magnesium - 02/05/18 08:32 Magnesium 2.0 mg/dL 1.8-2.4 PT panel in platelet poor plasma by coagulation assay - 02/05/18 08:32 Prothrombin time (PT) in platelet poor plasma by coagulation assay 14.5 s 12.2-14.7 INR in platelet poor plasma or blood by coagulation assay 1.1 0.8-1.4 Activated partial thromboplastin time (aPTT) in platelet poor plasma bycoagulation assay - 02/05/18 08:32 Activated partial thromboplastin time (aPTT) in platelet poor plasma bycoagulation assay 39 s 24-35 Serum or plasma troponin i.cardiac measurement (mass/volume) - 02/05/18 08:32 Serum or plasma troponin i.cardiac measurement (mass/volume) < ng/ mL <0.30 Myoglobin, serum - 02/05/18 08:32 Myoglobin, serum 70.7 ng/mL 10.0-92.0 Automated blood complete blood count (hemogram) panel - 03/19/18 09:48 Blood leukocytes automated count (number/volume) 7.2 10*3/uL 4.3-11.0 Blood erythrocytes automated count (number/volume) 5.03 10*6/uL 4.35-5.85 Venous blood hemoglobin measurement (mass/volume) 15.0 g/dL 13.3-17.7 Blood hematocrit (volume fraction) 44 % 40-54 Automated erythrocyte mean corpuscular volume 87 [foz_us] 80-99 Automated erythrocyte mean corpuscular hemoglobin (mass per erythrocyte) 30 pg 25-34 Automated erythrocyte mean corpuscular hemoglobin concentration measurement ( mass/volume) 34 g/dL 32-36 Automated erythrocyte distribution width ratio 13.1 % 10.0-14.5 Automated blood platelet count (count/volume) 331 10*3/uL 130-400 Automated blood platelet mean volume measurement 9.2 [foz_us] 7.4-10.4 Comprehensive metabolic panel - 03/19/18 09:48 Serum or plasma sodium measurement (moles/volume) 138 mmol/L 135-145 Serum or plasma potassium measurement (moles/volume) 4.8 mmol/L 3.6-5.0 Serum or plasma chloride measurement (moles/volume) 103 mmol/L 98-107 Carbon dioxide 29 mmol/L 21-32 Serum or plasma anion gap determination (moles/volume) 6 mmol/L 5-14 Serum or plasma urea nitrogen measurement (mass/volume) 21 mg/dL 7-18 Serum or plasma creatinine measurement (mass/volume) 1.09 mg/dL 0.60-1.30 Serum or plasma urea nitrogen/creatinine mass ratio 19 NRG Serum or plasma creatinine measurement with calculation of estimated glomerular filtration rate > NRG Serum or plasma glucose measurement (mass/volume) 194 mg/dL 70-105 Serum or plasma calcium measurement (mass/volume) 9.0 mg/dL 8.5-10.1 Serum or plasma total bilirubin measurement (mass/volume) 0.6 mg/dL 0.1-1.0 Serum or plasma alkaline phosphatase measurement (enzymatic activity/volume) 82 U/L 40-136 Serum or plasma aspartate aminotransferase measurement (enzymatic activity/ volume) 17 U/L 5-34 Serum or plasma alanine aminotransferase measurement (enzymatic activity/volume ) 21 U/L 0-55 Serum or plasma protein measurement (mass/volume) 6.2 g/dL 6.4-8.2 Serum or plasma albumin measurement (mass/volume) 4.0 g/dL 3.2-4.5 Lipid 1996 panel - 03/19/18 09:48 Serum or plasma triglyceride measurement (mass/volume) 68 mg/dL <150 Serum or plasma cholesterol measurement (mass/volume) 195 mg/dL < 200 Serum or plasma cholesterol in HDL measurement (mass/volume) 40 mg/ dL 40-60 Cholesterol in LDL [mass/volume] in serum or plasma by direct assay 152 mg/dL 1-129 Serum or plasma cholesterol in VLDL measurement (mass/volume) 14 mg/ dL 5-40 PT panel in platelet poor plasma by coagulation assay - 03/19/18 09:48 Prothrombin time (PT) in platelet poor plasma by coagulation assay 14.8 s 12.2-14.7 INR in platelet poor plasma or blood by coagulation assay 1.2 0.8-1.4 Activated partial thromboplastin time (aPTT) in platelet poor plasma bycoagulation assay - 03/19/18 09:48 Activated partial thromboplastin time (aPTT) in platelet poor plasma bycoagulation assay 36 s 24-35 Methicillin resistant Staphylococcus aureus (MRSA) screening culture - 09:48 Methicillin resistant Staphylococcus aureus (MRSA) screening culture NEG NRG Encounters ACCT No. Visit Date/Time Discharge Status Pt. Type Provider Facility Loc./Unit Complaint [id number] 03/19/2018 09:02:00 03/19/2018 14:00:00 DIS Outpatient JOSE FREDERICK MD, FACC, FACP CCDS [facility] CATH ATRIAL FLUTTER,HTN [id number] 03/12/2018 07:33:00 03/12/2018 23:59:59 CLS Outpatient BROOKE HER [facility] CARD PALPITATIONS, PAROXYSMAL ATRIAL FLUTTER [id number] 02/21/2018 14:51:00 02/21/2018 23:59:59 CLS Outpatient BROOKE HER USED CAR 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 [facility] CARD AFIB,HTN, ASCENDING AORTIC ANEURYSM [id number] 02/05/2018 08:24:00 02/05/2018 10:44:00 DIS Emergency SONIDO DONOHUE, HEYDI Mcclellan [facility] ER FLUTTERING IN CHEST [id number] 09/24/2017 11:46:00 09/24/2017 23:59:59 CLS Outpatient JOHNSONDARIELA BROOKE L USED CAR 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 [facility] CARD I48.92 PAROXYSMAL ATRIAL FLUTTER [id number] 04/10/2016 15:17:00 04/10/2016 23:59:59 CLS Outpatient ROSE WATKINS APRN [facility] RT DYSPNEA [id number] 07/27/2015 14:14:00 07/27/2015 23:59:59 CLS Outpatient TAINA BROOKE L USED CAR 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 [facility] RAD ANEURYSM OF THE AORTA [id number] 07/13/2015 08:31:00 07/13/2015 23:59:59 CLS Outpatient YOLY DONOHUE FACC, JOSE FACJermaine CCDS [facility] CARD AFIB [id number] 05/01/2015 19:30:00 05/03/2015 19:38:00 DIS Inpatient SULAIMAN CARRINGTON MD [facility] ICU A-FLUTTER,RVR,CHEST PAIN [id number] 06/24/2012 09:04:00 Document Registration [id number] 06/21/2012 08:23:00 Document Registration [id number] 10/26/2010 11:05:00 Document Registration
[2018-05-07] MEDS ORDERED: NS IV 1000 ML 1,000 ML IV SCH (10:36)
[2018-05-07] MEDS ORDERED: NS IV 1000 ML 1,000 ML ONE (10:41)
[2018-05-07 10:45] LABS: HEMOGLOBIN 15.9 G/DL (13.3-17.7); MEAN PLATELET VOLUME 9.2 FL (7.4-10.4); RED BLOOD COUNT 5.32 10^6/uL (4.35-5.85); RED CELL DISTRIBUTION WIDTH 13.7 % (10.0-14.5); WHITE BLOOD COUNT 11.1 10^3/uL (4.3-11.0)
[2018-05-07 10:59] LABS: INR 1.1 (0.8-1.4)
[2018-05-07 11:08] LABS: ALANINE AMINOTRANSFERASE 52 U/L (0-55); ALBUMIN 4.1 GM/DL (3.2-4.5); ALKALINE PHOSPHATASE 103 U/L (40-136); BILIRUBIN,TOTAL 0.7 MG/DL (0.1-1.0); BUN/CREATININE RATIO 18; CALCIUM 9.1 MG/DL (8.5-10.1); CARBON DIOXIDE 27 MMOL/L (21-32); CHLORIDE 101 MMOL/L (98-107); CHOLESTEROL 180 MG/DL (< 200); CREATININE SERUM 1.13 MG/DL (0.60-1.30); GFR ESTIMATED > 60; GLUCOSE 202 MG/DL (70-105); HDL CHOLESTEROL 44 MG/DL (40-60); POTASSIUM 4.3 MMOL/L (3.6-5.0); SODIUM 138 MMOL/L (135-145); TOTAL PROTEIN 6.2 GM/DL (6.4-8.2); TRIGLYCERIDES 80 MG/DL (<150); VLDL CHOLESTEROL 16 MG/DL (5-40)
[2018-05-07] MEDS ORDERED: FLEC100T PO (11:10)
[2018-05-07] MEDS ORDERED: proPOfol 200 MG/20 ML (DIPRIVAN) VIAL IV ONE (12:00)
[2018-05-07] MEDS ORDERED: MIDAZOLAM 2 MG/2 ML (VERSED) VIAL ONE (12:01)
--- NOTE | 2018-05-07 12:24 | Cardiac Procedure Note-CS/ASA ---
Pre-Procedure Note Pre-Op Procedure Note H&P Reviewed The H&P was reviewed, patient examined and no changes noted. Date H&P Reviewed: May 07, 2018 Time H&P Reviewed: 12:10 Conscious Sedation Pre-Proced Time Reviewed: 12:10 ASA Class: 3 Airway Mallampati Classification: ([place] appropriate class) I. II. III, IV Lungs Heart ASA score ASA 1: a normal healthy patient ASA 2: a patient with a mild systemic disease (mid diabetes, controlled hypertension, obesity ASA 3: a patient with a severe systemic disease that limits activity (angina , COPD, prior Myocardial infarction) ASA 4: a patient with an incapacitating disease that is a constant threat to life (CHF, renal failure) ASA 5: a moribund patient not expected to survive 24 hrs. (ruptured aneurysm) ASA 6: a declared brain patient whose organs are being harvested. For emergent operations, add the letter E after the classification Grade 3 Sedation Plan: Analgesia, Amnesia, Plan communicated to team members, Discussed options with patient/fam, Discussed risks with patient/fam Note The patient is an appropriate candidate to undergo the planned procedure, sedation, and anesthesia. The patient immediately re-assessed prior to indication. JOSE FREDERICK MD FACP FAC CCDS May 07, 2018 12:24
--- NOTE | 2018-05-07 12:58 | Anesthesia-Procedure Note ---
Procedures/Interventions Procedure Start/Stop/Diagnosis Date of Procedure: May 07, 2018 Start Time: 12:09 Referring Physician: Erik Preprocedural Diagnosis: A-Fib/Flutter Stop Time: 12:16 CINTHYA/Cardioversion Anesthesia Type: MAC ASA Class: 3 Medications Versed 2mg Propofol 100mg Monitors and Equipment: BP Cuff - Right, Continuous EKG, End Tidal CO2, IV, Pulse Oximeter Additional Procedures Procedures Patient tolerated procedure well, Oral airway placed post procedure. Care to [facility] staff. MARGARET LAND CRNA May 07, 2018 12:58
--- NOTE | 2018-05-07 14:09 | Discharge Inst-Cardiology ---
Discharge Inst-Cardiac Discharge Medications Continued Medications: Alprazolam (Alprazolam) 0.5 Mg Tablet 0.5 MG PO TID PRN for ANXIETY, TAB Apixaban (Eliquis) 5 Mg Tablet 5 MG PO BID, TAB Diltiazem HCl (Diltiazem 24Hr ER) 360 Mg Cap.er.24h 360 MG PO DAILY, CAP Escitalopram Oxalate (Escitalopram Oxalate) 10 Mg Tablet 10 MG PO HS, TAB Flecainide Acetate (Flecainide Acetate) 100 Mg Tablet 100 MG PO Q12H, TAB Metformin HCl (Metformin HCl) 1,000 Mg Tablet 1000 MG PO BID WITH MEALS, TAB Niacin (Inositol Niacinate) (Niacin 500 mg Capsule) 500 Mg Capsule 1000 MG PO DAILY, CAP TAKES 2 (500MG) CAPSULES Discontinued Medications: Metoprolol Succinate (Metoprolol Succinate) 25 Mg Tab.er.24h 25 MG PO HS, TAB Patient Instructions Patient Instructions: F/u with Dr Valencia next week JOSE VALENCIA MD FACP FAC CCDS May 07, 2018 14:09
--- NOTE | 2018-05-16 22:21 | OPERATIVE REPORT ---
DATE OF SERVICE: 05/07/2018 PREOPERATIVE DIAGNOSIS: Atrial flutter. POSTOPERATIVE DIAGNOSIS: Sinus rhythm. PROCEDURE: External electrical cardioversion. External electrical cardioversion was carried out through external pads with a synchronized 120 joule shock after informed consent had been obtained and the nurse computer forensics investigator provided short acting anesthesia. The patient was converted to sinus rhythm. Job ID: [id number] DocumentID: [id number] Dictated Date: 05/16/2018 17:42:40 Financial Sales Associate Date: 05/16/2018 22:20:23 Dictated By: JOSE FREDERICK MD, MA, FACP, FACC, MTDD
[2018-05-31] MEDS ORDERED: IBUP-844 PO (10:54)
== END 2018-05-07 15:15 | disposition home or self-care (01) ==
LOC: CATH 09:41 → SDC 12:55 → CATH 15:15
PROVIDERS: ATTEND Internal Medicine Cardiovascular Disease
DX: I48.0 Paroxysmal atrial fibrillation (principal); R60.0 Localized edema; R06.09 Other forms of dyspnea; E11.9 Type 2 diabetes mellitus without complications; I10 Essential (primary) hypertension; G47.33 Obstructive sleep apnea (adult) (pediatric); F41.9 Anxiety disorder, unspecified; I71.2 Thoracic aortic aneurysm, without rupture; E66.9 Obesity, unspecified; Z68.36 Body mass index [BMI] 36.0-36.9, adult; Z79.899 Other long term (current) drug therapy
CPT/HCPCS: 36415; 80053; 80061; 85027; 85610; 85730; 87081; 92960; 93005

== ENCOUNTER 2018-05-14 06:51 | Day surgery (SDC) | payer BC ==
[2018-05-14] VITALS (11 sets, daily range): BP systolic 114–130; BP diastolic 73–105
[~2018-05-14] VITALS: Ht 185.4 cm; Wt 124.7 kg
[~2018-05-14 06:51] MED LIST changes: +FLEC100T PO
[2018-05-14] MEDS ORDERED: LIDOCAINE 1% INJ 20 ML 20 ML VIAL ONE (06:53)
[2018-05-14] MEDS ORDERED: NS IV 1000 ML 3,000 ML ONE (06:53)
--- OUTSIDE RECORDS SUMMARY | 2018-05-14 06:54 | XMS REPORT | Continuity of Care Document ---
Author Author [facility] Organization [facility] Address Unknown Phone Unavailable Allergies Active Description Code Type Severity Reaction Onset Reported/Identified Relationship to Patient Clinical Status Yes No Known Drug Allergies [id number] Drug Allergy Unknown N/A 06/24/2012 Medications There [...] CCDS Ot I48.0 08/10/2015 TAINA BROOKE L LIFE MANAGEMENT TEACHER Ot I71.2 08/19/2015 BAIMA, BROOKE L LIFE MANAGEMENT TEACHER Ot I71.2 04/12/2016 ROSE WATKINS APRN Ot [...] PAROXYSMAL ATRIAL FIBRILLATION 09/17/2017 LO HERHER L LIFE MANAGEMENT TEACHER Ot I71.2 THORACIC AORTIC ANEURYSM, WITHOUT RUPTUR [...] PAROXYSMAL ATRIAL FIBRILLATION 09/21/2017 BAIMA, BROOKE L LIFE MANAGEMENT TEACHER Ot I71.2 THORACIC AORTIC ANEURYSM, WITHOUT RUPTUR [...] PAROXYSMAL ATRIAL FIBRILLATION 09/21/2017 BAIMA, BROOKE L LIFE MANAGEMENT TEACHER Ot I71.2 THORACIC AORTIC ANEURYSM, WITHOUT RUPTUR 09/21/2017 ROSE WATKINS APRN Ot R06.00 DYSPNEA, UNSPECIFIED 09/25/2017 TAINA BROOKE L LIFE MANAGEMENT TEACHER Ot I07.1 RHEUMATIC TRICUSPID INSUFFICIENCY 09/25/2017 BAIMA, BROOKE L LIFE MANAGEMENT TEACHER Ot I10 ESSENTIAL (PRIMARY) HYPERTENSION 09/25/2017 BAIMA, BROOKE L LIFE MANAGEMENT TEACHER Ot I34.0 NONRHEUMATIC MITRAL (VALVE) INSUFFICIENC 09/25/2017 BAIMA, BROOKE L LIFE MANAGEMENT TEACHER Ot I35.8 OTHER NONRHEUMATIC AORTIC VALVE DISORDER 09/25/2017 BAIMA, BROOKE L LIFE MANAGEMENT TEACHER Ot I48.92 UNSPECIFIED ATRIAL FLUTTER 09/30/2017 BAIMA, BROOKE L LIFE MANAGEMENT TEACHER Ot I07.1 RHEUMATIC TRICUSPID INSUFFICIENCY 09/30/2017 BAIMA, BROOKE L LIFE MANAGEMENT TEACHER Ot I10 ESSENTIAL (PRIMARY) HYPERTENSION 09/30/2017 BAIMA, BROOKE L LIFE MANAGEMENT TEACHER Ot I34.0 NONRHEUMATIC MITRAL (VALVE) INSUFFICIENC 09/30/2017 BAIMA, BROOKE L LIFE MANAGEMENT TEACHER Ot I35.8 OTHER NONRHEUMATIC AORTIC VALVE DISORDER 09/30/2017 BAIMA, BROOKE L LIFE MANAGEMENT TEACHER Ot I48.92 UNSPECIFIED ATRIAL FLUTTER 10/11/2017 BAIMA, BROOKE L LIFE MANAGEMENT TEACHER Ot I07.1 RHEUMATIC TRICUSPID INSUFFICIENCY 10/11/2017 BAIMA, BROOKE L LIFE MANAGEMENT TEACHER Ot I10 ESSENTIAL (PRIMARY) HYPERTENSION 10/11/2017 BAIMA, BROOKE L LIFE MANAGEMENT TEACHER Ot I34.0 NONRHEUMATIC MITRAL (VALVE) INSUFFICIENC 10/11/2017 BROOKE HER LIFE MANAGEMENT TEACHER Ot I35.8 OTHER NONRHEUMATIC AORTIC VALVE DISORDER 10/11/2017 BROOKE HER LIFE MANAGEMENT TEACHER Ot I48.92 UNSPECIFIED ATRIAL FLUTTER 02/05/2018 BROOKE HER LIFE MANAGEMENT TEACHER Ot I07.1 RHEUMATIC TRICUSPID INSUFFICIENCY 02/05/2018 BROOKE HER LIFE MANAGEMENT TEACHER Ot I10 ESSENTIAL (PRIMARY) HYPERTENSION 02/05/2018 BROOKE HER LIFE MANAGEMENT TEACHER Ot I34.0 NONRHEUMATIC MITRAL (VALVE) INSUFFICIENC 02/05/2018 BROOKE HER LIFE MANAGEMENT TEACHER Ot I35.8 OTHER NONRHEUMATIC AORTIC VALVE DISORDER 02/05/2018 BROOKE HER LIFE MANAGEMENT TEACHER Ot I48.92 UNSPECIFIED ATRIAL FLUTTER 02/05/2018 HEYDI [...] PALPITATIONS 02/05/2018 HEYDI HEAD MD, Ot Z79.01 FDC (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 OF ANTICOAGULANT 02/05/2018 HEYDI HEAD MD Ot Z79.4 FDC (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 OF INSULIN 02/05/2018 HEYDI HEAD [...] MD Ot I48.0 PAROXYSMAL ATRIAL FIBRILLATION 02/07/2018 EHYDI HEAD MD Ot I48.92 UNSPECIFIED ATRIAL FLUTTER 02/07/2018 HEYDI HEAD MD Ot R00.2 PALPITATIONS 02/07/2018 HEYDI HEAD MD Ot Z79.01 FDC (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 OF ANTICOAGULANT 02/07/2018 HEYDI HEAD MD, Ot Z79.4 GAMING DEALER (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 OF INSULIN 02/07/2018 HEYDI HEAD MD, Ot 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, 02/07/2018 HEYDI HEAD MD Ot Z90.89 ACQUIRED ABSENCE OF OTHER ORGANS 02/07/2018 HEYDI HEAD MD Ot Z98.1 ARTHRODESIS STATUS 02/19/2018 BROOKE HER LIFE MANAGEMENT TEACHER Ot I07.1 RHEUMATIC TRICUSPID INSUFFICIENCY 02/19/2018 BROOKE HER LIFE MANAGEMENT TEACHER Ot I10 ESSENTIAL (PRIMARY) HYPERTENSION 02/19/2018 BROOKE HER LIFE MANAGEMENT TEACHER Ot I34.0 NONRHEUMATIC MITRAL (VALVE) INSUFFICIENC 02/19/2018 BROOKE HER LIFE MANAGEMENT TEACHER Ot I35.8 OTHER NONRHEUMATIC AORTIC VALVE DISORDER 02/19/2018 BROOKE HER LIFE MANAGEMENT TEACHER Ot I48.92 UNSPECIFIED ATRIAL FLUTTER 03/13/2018 BROOKE HER L LIFE MANAGEMENT TEACHER Ot I48.92 UNSPECIFIED ATRIAL FLUTTER 03/13/2018 BROOKE HER LIFE MANAGEMENT TEACHER Ot R00.2 PALPITATIONS 03/14/2018 BROOKE HER LIFE MANAGEMENT TEACHER Ot E11.59 TYPE 2 DIABETES MELLITUS WITH OTH CIRCUL 03/14/2018 BROOKE HER L LIFE MANAGEMENT TEACHER Ot I10 ESSENTIAL (PRIMARY) HYPERTENSION 03/14/2018 BROOKE HER LIFE MANAGEMENT TEACHER Ot I48.0 PAROXYSMAL ATRIAL FIBRILLATION 03/14/2018 BROOKE HER LIFE MANAGEMENT TEACHER Ot I71.2 THORACIC AORTIC ANEURYSM, WITHOUT RUPTUR [...] DONOHUE FACC, ALI FACP CCDS Ot Z79.01 FDC (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 OF ANTICOAGULANT 03/19/2018 YOLY DONOHUE FACC, ALI FACP CCDS Ot Z79.4 GAMING DEALER (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 OF INSULIN 03/19/2018 YOLY DONOHUE FACC, ALI FACP CCDS Ot Z79.899 OTHER GAMING DEALER (CURRENT) DRUG THERAPY 03/20/2018 YOLY DONOHUE FACC, ALI FACP CCDS Ot E11.9 TYPE 2 DIABETES MELLITUS WITHOUT COMPLIC 03/20/2018 YOLY DONOHUE FACC, ALI FACP CCDS Ot E66.9 OBESITY, UNSPECIFIED 03/20/2018 YLOY DONOHUE FACC, ALI FACP CCDS Ot G47.33 [...] FREDERICK MD, FACC, FACP CCDS Ot Z79.01 FDC (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 OF ANTICOAGULANT 03/20/2018 YOLY DONOHUE FACC, JOSE KISHAP CCDS Ot Z79.4 FDC (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 OF INSULIN 03/20/2018 JOSE FREDERICK MD, FACC KISHAP CCDS Ot Z79.899 OTHER FDC (CURRENT) DRUG THERAPY Procedures There is no [...] Status Pt. Type Provider Facility Loc./Unit Complaint [id number] 03/19/2018 09:02:00 03/19/2018 14:00:00 DIS Outpatient JOSE FREDERICK MD, FACC, FACP CCDS [facility] CATH ATRIAL FLUTTER,HTN [id number] 03/12/2018 07:33:00 03/12/2018 23:59:59 CLS Outpatient BROOKE HER [facility] CARD PALPITATIONS, PAROXYSMAL ATRIAL FLUTTER [id number] 02/21/2018 14:51:00 02/21/2018 23:59:59 CLS Outpatient BROOKE HER LIFE MANAGEMENT TEACHER [facility] CARD AFIB,HTN, ASCENDING AORTIC ANEURYSM [id number] 02/05/2018 08:24:00 02/05/2018 10:44:00 DIS Emergency SONIDO DONOHUE, HEYDI Mcclellan [facility] ER FLUTTERING IN CHEST [id number] 09/24/2017 11:46:00 09/24/2017 23:59:59 CLS Outpatient JOHNSONDARIELA BROOKE L LIFE MANAGEMENT TEACHER [facility] CARD I48.92 PAROXYSMAL ATRIAL FLUTTER [id number] 04/10/2016 15:17:00 04/10/2016 23:59:59 CLS Outpatient ROSE WATKINS APRN [facility] RT DYSPNEA [id number] 07/27/2015 14:14:00 07/27/2015 23:59:59 CLS Outpatient TAINA BROOKE L LIFE MANAGEMENT TEACHER [facility] RAD ANEURYSM OF THE AORTA [id number] 07/13/2015 08:31:00 07/13/2015 23:59:59 CLS Outpatient YOLY DONOHUE FACC, JOSE FACJermaine CCDS [facility] CARD AFIB [id number] 05/01/2015 19:30:00 05/03/2015 19:38:00 DIS Inpatient SULAIMAN CARRINGTON MD [facility] ICU A-FLUTTER,RVR,CHEST PAIN [id number] 06/24/2012 09:04:00 Document Registration [id number] 06/21/2012 08:23:00 Document Registration [id number] 10/26/2010 11:05:00 Document Registration
[2018-05-14] MEDS ORDERED: HEParin 1000 UNIT/ML (10ML VIAL) FOR BOLUS ONE (06:55)
[2018-05-14] MEDS ORDERED: NS IV 1000 ML 1,000 ML IV SCH ×2 (07:00→09:26)
[2018-05-14 07:19] LABS: HEMOGLOBIN 16.6 G/DL (13.3-17.7); MEAN PLATELET VOLUME 9.3 FL (7.4-10.4); RED BLOOD COUNT 5.51 10^6/uL (4.35-5.85); RED CELL DISTRIBUTION WIDTH 13.9 % (10.0-14.5); WHITE BLOOD COUNT 9.1 10^3/uL (4.3-11.0)
[2018-05-14] MEDS ORDERED: MIDAZOLAM 5 MG/5 ML (VERSED) VIAL ONE ×2 (07:22→07:56)
[2018-05-14] MEDS ORDERED: METO-387 PO (07:22)
[2018-05-14] MEDS ORDERED: DILT180C54 PO (07:22)
[2018-05-14] MEDS ORDERED: fentaNYL INJECTION 100 MCG/2 ML AMP ONE ×2 (07:22→07:56)
[2018-05-14] MEDS ORDERED: diphenhydrAMINE 50 MG/ML INJ (BENADRYL) ONE ×2 (07:22→07:56)
[2018-05-14 07:30] LABS: PROTHROMBIN TIME PATIENT 13.4 SEC (12.2-14.7)
[2018-05-14 07:37] LABS: ALANINE AMINOTRANSFERASE 28 U/L (0-55); ALKALINE PHOSPHATASE 91 U/L (40-136); BILIRUBIN,TOTAL 0.4 MG/DL (0.1-1.0); BUN/CREATININE RATIO 24; CALCIUM 9.1 MG/DL (8.5-10.1); CARBON DIOXIDE 25 MMOL/L (21-32); CHLORIDE 104 MMOL/L (98-107); CHOLESTEROL 194 MG/DL (< 200); CREATININE SERUM 1.13 MG/DL (0.60-1.30); GFR ESTIMATED > 60; GLUCOSE 161 MG/DL (70-105); HDL CHOLESTEROL 42 MG/DL (40-60); POTASSIUM 4.2 MMOL/L (3.6-5.0); SODIUM 140 MMOL/L (135-145); TRIGLYCERIDES 87 MG/DL (<150); VLDL CHOLESTEROL 17 MG/DL (5-40)
[2018-05-14] MEDS ORDERED: proPOfol 200 MG/20 ML (DIPRIVAN) VIAL IV ONE (09:02)
[2018-05-14] MEDS ORDERED: ATROPINE INJECTION 1 MG/10 ML SYR (ABBOTT) ONE (09:05)
--- NOTE | 2018-05-14 09:25 | Cardiac Procedure Note-CS/ASA ---
Pre-Procedure Note Pre-Op Procedure Note H&P Reviewed The H&P was reviewed, patient examined and no changes noted. Date H&P Reviewed: May 14, 2018 Time H&P Reviewed: 08:50 Conscious Sedation Pre-Proced Time Reviewed: 08:50 ASA Class: 3 Airway Mallampati Classification: ([place] appropriate class) I. II. III, IV Lungs Heart ASA score ASA 1: a normal healthy patient ASA 2: a patient with a mild systemic disease (mid diabetes, controlled hypertension, obesity ASA 3: a patient with a severe systemic disease that limits activity (angina , COPD, prior Myocardial infarction) ASA 4: a patient with an incapacitating disease that is a constant threat to life (CHF, renal failure) ASA 5: a moribund patient not expected to survive 24 hrs. (ruptured aneurysm) ASA 6: a declared brain patient whose organs are being harvested. For emergent operations, add the letter E after the classification Grade 3 Sedation Plan: Analgesia, Amnesia, Plan communicated to team members, Discussed options with patient/fam, Discussed risks with patient/fam Note The patient is an appropriate candidate to undergo the planned procedure, sedation, and anesthesia. The patient immediately re-assessed prior to indication. JOSE FREDERICK MD FACP FAC CCDS May 14, 2018 09:25
--- NOTE | 2018-05-14 09:26 | Anesthesia-General Post-Op ---
MAC Patient Condition Mental Status/LOC: Same as Preop Cardiovascular: Satisfactory Nausea/Vomiting: Absent Respiratory: Satisfactory Pain: Controlled Complications: Absent Post Op Complications Complications None Follow Up Care/Instructions Patient Instructions None needed. Anesthesiology Discharge Order Discharge Order Patient is doing well, no complaints, stable vital signs, no apparent adverse anesthesia problems. No complications reported per nursing. COSME STEVENSON CRNA May 14, 2018 09:26
--- NOTE | 2018-05-14 09:27 | Anesthesia-Procedure Note ---
Procedures/Interventions Procedure Start/Stop/Diagnosis Date of Procedure: May 14, 2018 Start Time: 09:00 Stop Time: 09:15 CINTHYA/Cardioversion Anesthesia Type: MAC ASA Class: 3 Medications propofol 40 mg Monitors and Equipment: Continuous EKG, End Tidal CO2, IV, Pulse Oximeter COSME STEVENSON CRNA May 14, 2018 09:27
[2018-05-14] MEDS ORDERED: PATIENT MAY USE OWN MEDS, ALL PO SCH (09:30)
--- NOTE | 2018-05-14 09:31 | Discharge Inst-Cardiology ---
Discharge Inst-Cardiac Discharge Medications Continued Medications: Alprazolam (Alprazolam) 0.5 Mg Tablet 0.5 MG PO TID PRN for ANXIETY, TAB Apixaban (Eliquis) 5 Mg Tablet 5 MG PO BID, TAB Diltiazem HCl (Cartia Xt) 180 Mg Cap.er.24h 180 MG PO DAILY, CAP Escitalopram Oxalate (Escitalopram Oxalate) 10 Mg Tablet 10 MG PO HS, TAB Metoprolol Succinate (Metoprolol Succinate) 25 Mg Tab.er.24h 25 MG PO DAILY, TAB Niacin (Inositol Niacinate) (Niacin 500 mg Capsule) 500 Mg Capsule 1000 MG PO DAILY, CAP TAKES 2 (500MG) CAPSULES Discontinued Medications: Metformin HCl (Metformin HCl) 1,000 Mg Tablet 1000 MG PO BID WITH MEALS, TAB Patient Instructions Patient Instructions: Resume METFORMIN 1000 mg po bid begining on the evening of 05/16/18 Activity & Diet Discharge Diet: ADA Diet (1800 kCal) JOSE FREDERICK MD FACP FAC CCDS May 14, 2018 09:31
--- NOTE | 2018-05-14 09:32 | Discharge Inst-Post CATH ---
Discharge Inst-CATH Post Cardiac Cath D/C Inst Follow Up/Plan F/u with Dr Valencia next week Resume METFORMIN 1000 mg po bid begining on the evening of 05/16/18 CARDIAC CATH DISCHARGE INSTRUCTIONS *Hold Metformin for 48 hours post heart cath. ACTIVITY * Go Home directly and rest. * Limit activity of the leg (or wrist if it was used) for 7 days including aerobics, swimming, jogging, bicycling, etc. * Restrict stair-climbing for 7 days if possible, if not, climb up with your non -cath leg, then bring together on the same step. * Avoid lifting, pushing, pulling or excessive movement of the affected extremity for 7 days. * Customary sexual activity may be resumed after 2 days-use caution not to use a position that strains or causes pain to the affected extremity. * No driving for 24 hours. * NO SMOKING. * Avoid straining for bowel movements for 7 days. * Gentle walking on level ground is allowed. * Returning to work will depend on the type of procedure and the results. Your doctor will discuss this with you. CALL YOUR DOCTOR FOR ANY OF THE FOLLOWING: *If bleeding from the puncture site occurs- Apply gentle pressure to site with clean cloth and call your doctor or EMS. * If a knot or lump forms under the skin, increases in size, or causes pain. * If bruising appears to be worsening or moving further down your leg instead of disappearing. * Temperature above 101 F. CARE OF YOUR GROIN INCISION; * Bruising or purple discoloration of the skin near the puncture site is common. * You may shower only, no bathtub bathing for 5 days. Be careful to avoid slipping as your leg may feel stiff. * If a closure device was used on your femoral artery, please see the attached guide regarding care of the device and your leg. * REMOVE the dressing from your groin the next day after your procedure in the shower. CARE OF YOUR WRIST INCISION; * Bruising or purple discoloration of the skin near the puncture site is common. * You may shower. * DO NOT submerge wrist. * Remove dressing in 24 hours. JOSE VALENCIA MD FACP [facility] CCDS May 14, 2018 09:32
--- NOTE | 2018-05-14 10:16 | CARDIAC CATHETERIZATION ---
DATE OF SERVICE: 05/14/2018 CARDIAC CATHETERIZATION AND EXTERNAL ELECTRICAL CARDIOVERSION REPORT HISTORY OF PRESENT ILLNESS: The patient is a 57-year-old man with recurrent atrial flutter. He has also been experiencing symptoms of increasing exertional shortness of breath. Informed consents were obtained for cardiac catheterization and for repeat external electrical cardioversion. DESCRIPTION OF PROCEDURE: He was brought to the cardiac catheterization laboratory in a fasting state. Right groin was prepared and draped in the usual sterile fashion, 1% lidocaine with local anesthesia. Modified Seldinger technique was used to advance a 5-Macedonian sheath in the right femoral artery, 5-Macedonian JL4 catheter for left coronary angiography, 5-Macedonian JR4 catheter for right coronary angiography, 5-Macedonian pigtail catheter was used for left heart catheterization and left ventricular angiography. Before left ventricular angiography, we carried out angiography of the aortic root with the pigtail positioned at the level of the aortic root. This was performed because we were having difficulty with advancing the catheter into the left ventricle. The aortogram helped with advancement of the catheter without any difficulty or problems. At the end of the diagnostic cardiac catheterization procedure, angiography of the right femoral artery was carried out and Mynx was used to achieve hemostasis following the electrical cardioversion described below. EXTERNAL ELECTRICAL CARDIOVERSION: Short-acting anesthesia was provided by the nurse trade manager. A 120 joules synchronized cardioversion was carried out, which promptly restored sinus rhythm. He tolerated the procedure well. HEMODYNAMICS: Left ventricular end-diastolic pressure following coronary angiography was 28 mmHg. However, in retrospect, the zero was found to be off by about 5 mmHg. Left ventricular end-diastolic pressure is, therefore, estimated to have been about 23 mmHg. There was no significant pressure gradient on pullback across the aortic valve. Ascending aortic pressure was 124/99 with a mean of 104 mmHg. AORTIC ROOT ANGIOGRAPHY: Aortic root angiography did not show any aortic root dissection or aneurysm. Aortic valve leaflets exhibit good leaflet excursion. There was no significant aortic regurgitation. LEFT VENTRICULAR ANGIOGRAPHY: Left ventricular angiography was carried out in the right anterior oblique projection. Global left ventricular systolic function is normal. No regional wall motion abnormality is seen. Left ventricular ejection fraction is approximately 65%. CORONARY ANGIOGRAPHY: Left main coronary artery, left anterior descending artery, left circumflex artery and right coronary artery exhibited minor plaques. No angiographically significant obstructive coronary artery disease is seen. Right coronary artery is dominant. CONCLUSIONS: 1. Angiographically, minimal coronary artery disease. 2. Normal global left ventricular systolic function with ejection fraction approximately 60%. 3. Elevated left ventricular end-diastolic pressure. 4. No significant mitral regurgitation or aortic regurgitation. 5. Successful external electrical cardioversion from atrial flutter to sinus rhythm. DISCUSSION AND RECOMMENDATIONS: Based on results of the study, it appears appropriate to continue a conservative approach. He has been on continuous oral anticoagulation for stroke prophylaxis for many weeks and this has been continued without interruption. He has an external electrocardioversion on many occasions, including external electrocardioversion while on 100 mg of flecainide twice a day. Even on flecainide, he went back into atrial flutter. Flecainide has been discontinued because he felt that he was symptomatic from it. He would likely need atrial flutter ablation and is being referred for that. Job ID: [id number] DocumentID: [id number] Dictated Date: 05/14/2018 09:16:06 Plugger Man Date: 05/14/2018 10:15:46 Dictated By: JOSE FREDERICK MD, MA, FACP, FACC, MTDD
[2018-05-31] MEDS ORDERED: IBUP-844 PO (10:54)
== END 2018-05-14 13:40 | disposition home or self-care (01) ==
LOC: CATH 06:51
PROVIDERS: ATTEND Internal Medicine Cardiovascular Disease
DX: I48.92 Unspecified atrial flutter (principal); R06.09 Other forms of dyspnea; E11.9 Type 2 diabetes mellitus without complications; F41.9 Anxiety disorder, unspecified; I10 Essential (primary) hypertension; G47.33 Obstructive sleep apnea (adult) (pediatric); R60.0 Localized edema; E66.9 Obesity, unspecified; Z68.38 Body mass index [BMI] 38.0-38.9, adult; Z79.01 Long term (current) use of anticoagulants; Z79.4 Long term (current) use of insulin
CPT/HCPCS: 36415; 80053; 80061; 85027; 85610; 85730; 87081; 92960; 93005; 93458; 93567

== ENCOUNTER 2018-05-29 17:06 | Observation (INO) | payer BC ==
[~2018-05-29] VITALS: Ht 185.4 cm; Wt 123.9 kg
[~2018-05-29 17:06] MED LIST changes: +DILT180C54 PO
[2018-05-29] MEDS ORDERED: ASPIRIN 81 MG CHEW (CHILDREN'S ASA) ONE (17:10)
--- OUTSIDE RECORDS SUMMARY | 2018-05-29 17:12 | XMS REPORT | Encounter Summary ---
Author Author [facility] Organization [facility] Address Unknown Phone Unavailable Care Team Providers Care Telecine Operator Name Role Phone Antonio Hawthorne MD PCP Encounter Details Date Type Department Care Team Description 05/29/2018 Telephone [facility] Cardiology Hailee Greco, RN [address] [place] [address] Social History Tobacco Use Types Packs/Day Years Used Date Never Assessed Sex Assigned at Date Recorded Not on file as of this encounter Miscellaneous Notes * Telephone Encounter - Hailee Greco RN - 05/29/2018 5:06 PM CDT ----- Message from Loida Alvarado LPN sent at 05/29/2018 4:52 PM CDT ----- Regarding: MPE- Post op cp and SOA VM from patient on triage line. He has ablation yesterday. He is having chest pain when he takes a deep breath. Call back on cell. in this encounter Plan of Treatment Not on fileas of this encounter Visit Diagnoses Not on filein this encounter
--- OUTSIDE RECORDS SUMMARY | 2018-05-29 17:12 | XMS REPORT | Encounter Summary ---
Author Author [facility] Organization [facility] Address Unknown Phone Unavailable Care Team Providers Care Mannequin Wig Maker Name Role Phone Antonio Hawthorne MD PCP Reason for Visit * Auth/Cert (Routine) Status Reason Specialty Diagnoses / Referred By Referred To Procedures Contact Contact Encounter Details Date Type Department Care Team Description 05/28/2018 Anesthesia HC2 EP LAB Eriberto Chavez CRNA Event [address] [facility] [place] [address] [place] [address] [place] [address] [phone] Anesthesia Record Procedure Name Responsible Anesthesia Start Time Anesthesia Stop Time Anesthesiologist INTRACARDIAC CATHETER 05/28/18 1240 ABLATION WITH COMPREHENSIVE ELECTROPHYSIOLOGIC EVALUATION - TYPICAL FLUTTER (N/A ) Date Time Event Comment 1239 Out of Pre 2018 Procedure 1240 Anes Start 1243 In Room 1507 Anesthesia Not Administered Meds * No agents on file. * No blood administrations on file. Type Details Placement Removal Peripheral 05/28/18; 1040; RN; L; Hand; 20 G; 05/28/18 1040 by Colby, 05/29/18 0831 by Leander, IV 05/29/18; 0831 NICK Barlow RN Venous 05/28/18; 1500; EP; Femoral, Right; 6 05/28/18 1500 by Colby, 05/28/18 1519 by Colby, Sheath FR, 7 FR, 8.5 FR; Securement device; NICK Barlow RN 05/28/18; 1519 Puncture 05/28/18; 1500; Right; Femoral; 05/28/18 1500 by Colby, 05/29 0831 by Leander, Wound 05/29/18; 0831 NICK Barlow RN (Sheath) in this encounter Social History Tobacco Use Types Packs/Day Years Used Date Never Assessed Sex Assigned at Date Recorded Not on file as of this encounter OR Notes * Anesthesia Preprocedure Evaluation - Darien Alonso MD - 05/28/2018 11:01 AM CDT Formatting of this note may be different from the original. Anesthesia Pre-Procedure Evaluation Name: Montez Mulligan : 1960 Age: 57 y.o. Sex: male Procedure Date: 05/28/2018 Procedure: Procedure(s): INTRACARDIAC CATHETER ABLATION WITH COMPREHENSIVE ELECTROPHYSIOLOGIC EVALUATION - TYPICAL FLUTTER POSSIBLE EXTERNAL CARDIOVERSION Physical Assessment Vital Signs (last filed in past 24 hours): BP: 152/111 (05/28 1033) Temp: 36.7 C (98.1 F) (05/28 1033) Pulse: 147 (05/28 1033) Respirations: 21 PER MINUTE (05/28 1033) SpO2: 99 % (05/28 1033) O2 Delivery: None (Room Air) (05/28 1033) Height: 185.4 cm (73") (05/28 1033) Weight: 122 kg (268 lb 15.4 oz) (05/28 1033) Patient History Allergies Allergen Reactions Nifedipine SHORTNESS OF BREATH Current Medications Medication Directions apixaban (ELIQUIS) 5 mg tablet Take 5 mg by mouth twice daily. diltiazem CD (CARDIZEM CD) 180 mg capsule Take two capsules by mouth daily. escitalopram oxalate (LEXAPRO) 10 mg tablet Take 10 mg by mouth daily. insulin aspart U-100 (NOVOLOG FLEXPEN U-100 INSULIN) 100 unit/mL injection PEN Inject 16 Units under the skin three times daily with meals. insulin detemir (LEVEMIR FLEXPEN SC) Inject 48 Units under the skin at bedtime daily. metFORMIN (GLUCOPHAGE) 1,000 mg tablet Take 1,000 mg by mouth twice daily with meals. metoprolol XL (TOPROL XL) 50 mg extended release tablet Take one tablet by mouth daily. niacin ER (NIASPAN) 500 mg tablet Take 1,000 mg by mouth daily. Take with food. Review of Systems/Medical History Patient summary reviewed Nursing notes reviewed Pertinent labs reviewed No history of anesthetic complications No family history of anesthetic complications Pulmonary Sleep apnea Interventions: CPAP; compliant Pt states he does NOT have any trouble laying flat. Pt states he had a heart cath last week and did not have any problems laying flat. Cardiovascular Exercise tolerance: >4 METS Beta Jesus therapy: Yes Beta blockers within 24 hours: Yes Hypertension, well controlled Dysrhythmias (A-flutter); atrial fibrillation PVD Neuro/Psych - negative Musculoskeletal Pt has C5-7 fusion. Pt has good neck ROM with out any pain noted. Endocrine/Other Diabetes (Pt takes metformin as well), well controlled; using insulin Physical Exam Airway Findings Mallampati: I TM distance: >3 FB Neck ROM: full Mouth opening: good Airway patency: adequate Dental Findings: Negative Cardiovascular Findings: Rhythm: irregular Rate: abnormal Comments: Currently in a-flutter with rate of 140's Pulmonary Findings: Negative Abdominal Findings: Negative Neurological Findings: Negative Diagnostic Tests Hematology: Lab Results Component Value Date HGB 16.90 05/21/2018 HCT 48.30 05/21/2018 PLTCT 336 05/21/2018 WBC 8.5 05/21/2018 NEUT 64.9 05/21/2018 ANC 5.6 05/21/2018 ALC 2.3 05/21/2018 MCV 87 05/21/2018 MCH 31 05/21/2018 MCHC 35 05/21/2018 RDW 13.4 05/21/2018 General Chemistry: Lab Results Component Value Date NA 138 05/21/2018 K 5.0 05/21/2018 CL 102 05/21/2018 CO2 29 05/21/2018 BUN 28 05/21/2018 CR 1.22 05/21/2018 GLU 263 05/21/2018 CA 8.70 05/21/2018 MG 1.9 05/21/2018 Coagulation: No results found for: PT, PTT, INR Anesthesia Plan ASA score: 3 Plan: MAC NPO status: acceptable Informed Consent Anesthetic plan and risks discussed with patient. Blood Consent: consented Plan discussed with: anesthesiologist, surgeon/proceduralist and PACKING SUPERVISOR. Comments: (Will be available if needed for cardioversion and/or if pt obstructs during the case) in this encounter Plan of Treatment Not on fileas of this encounter Visit Diagnoses Not on filein this encounter
--- OUTSIDE RECORDS SUMMARY | 2018-05-29 17:12 | XMS REPORT | Clinical Summary ---
Author Author [facility] Organization [facility] Address Unknown Phone Unavailable Care Team Providers Care Casino Cashier Manager Name Role Phone Antonio Hawthorne MD PCP Source Comments Some departments are not documenting in the electronic medical record. If you do not see the information that you expected, contact Release of Information in the Health Information Management department at [phone] for further assistance in locating additional records.[facility] Allergies Active Allergy Reactions Severity Noted Date Comments Nifedipine SHORTNESS OF BREATH Medium 05/21/2018 Flecainide SHORTNESS OF BREATH Medium 05/28/2018 Current Medications Prescription Sig. Disp. Refills Start End Date Status Date insulin detemir (LEVEMIR Inject 48 Units under the Active FLEXPEN SC) skin at bedtime daily. insulin aspart U-100 Inject 16 Units under the Active (NOVOLOG FLEXPEN U-100 skin three times daily INSULIN) 100 unit/mL with meals. injection PEN metFORMIN (GLUCOPHAGE) Take 1,000 mg by mouth Active 1,000 mg tablet twice daily with meals. niacin ER (NIASPAN) 500 Take 1,000 mg by mouth Active mg tablet daily. Take with food. apixaban (ELIQUIS) 5 mg Take 5 mg by mouth twice Active tablet daily. escitalopram oxalate Take 10 mg by mouth Active (LEXAPRO) 10 mg tablet daily. metoprolol XL (TOPROL XL) Take one tablet by mouth 90 tablet 3 Active 50 mg extended release daily. 18 tablet diltiazem CD (CARDIZEM Take one capsule by mouth 180 capsule 3 Active CD) 180 mg daily. 18 capsuleIndications: Typical atrial flutter (HCC) diltiazem CD (CARDIZEM Take 240 mg by mouth 05/21/20 Discontin CD) 240 mg capsule daily. 18 ued metoprolol XL (TOPROL XL) Take 25 mg by mouth 05/21/20 Discontin 25 mg extended release daily. 18 ued tablet diltiazem CD (CARDIZEM Take two capsules by 180 capsule 3 05/21/20 05/29/20 Suspended CD) 180 mg capsule mouth daily. 18 18 Active Problems Problem Noted Date Atrial fibrillation ([facility]) 05/21/2018 Overview: [facility] NANNETTE on CPAP 05/21/2018 Type 2 diabetes mellitus ([facility]) 05/21/2018 Essential hypertension 05/21/2018 Atrial flutter ([facility]) 05/21/2018 Overview: 04/2015 during hospitalization 02/2018 ED visit 02/2018 Echo: EF 55 - 0%. Aortic valve sclerosis wihtout significant aortic stenosis. mild to mod enlargement of the ascending aorta measuring up to 4.3 cm 02/21/18 Holter [id number] throughout 24 hour study. average ventricular rate + 99 bpm 03/12/18 MPE : A-flutter wth RVR throughout test, no evidenceof myocardial ischemia or infarction LVEF 58% 03/19/18 Cardioversion and SR retored 05/01/18 Afib/flutter with RVR noted 05/14/18 Via [facility]. minimal CAD, EF 60%, elevated LVEDP, no significant mitral regurgitation or aortic regurgitation. Successful cardioversion from AF to SR Ascending aortic aneurysm ([facility]) 05/21/2018 Overview: 07/27/15 4.3 cm in he mid ascending aorta and 5 cm at the aortic sinus level. followed by Dr Mobley of the CV service at [facility] in [place], [place] 02/2018 Echo: EF 55 - 0%. Aortic valve sclerosis wihtout significant aortic stenosis. mild to mod enlargement of the ascending aorta measuring up to 4.3 cm Encounters Date Type Specialty Care Team Description 05/29/2018 Telephone Cardiology Hailee Greco, NICK 05/28/2018 Hospital Cardiology Babatunde Ordonez MD Atrial flutter ([facility] ) - Encounter 05/29/2018 05/28/2018 Anesthesia Cardiology Eriberto Chavez, DIRECT SUPPORT PROFESSIONAL CAREGIVER Event 05/28/2018 Procedure Pass Cardiology 05/28/2018 Surgery Cardiology Babatunde Ordonez MD INTRACARDIAC CATHETER ABLATION WITH COMPREHENSIVE ELECTROPHYSIOLOGIC EVALUATION - TYPICAL FLUTTER 05/22/2018 Pre-Admit Cardiology Aspen Campbell PA-C Orders Only 05/21/2018 Lab Only Internal Medicine Typical atrial flutter (HCC); Essential hypertension; Paroxysmal atrial fibrillation (HCC) 05/21/2018 Office Visit Cardiology Babatunde Ordonez MD New Patient ( referred by Dr. Anusha Valencia); Atrial fibrillation (possible ablation) 05/21/2018 Documentation Cardiology Neal Brambila RN Precertification (Approval for EPS/RFA through [employer] of [place]) 05/21/2018 Prep for Case Cardiology Babatunde Ordonez MD Typical atrial flutter (HCC) (Primary Dx) 05/21/2018 Orders Only Cardiology Babatunde Ordonez MD 05/21/2018 Documentation Cardiology Hailee Greco RN EP Pre-Procedure Instructions (05/28/18 Atrial Flutter using Radiofrequency Ablation) 05/17/2018 Patient Profile Cardiology Carmina Quintanilla New Patient from Last 3 Months Social History Tobacco Use Types Packs/Day Years Used Date Never Assessed Sex Assigned at Date Recorded Not on file Last Filed Vital Signs Vital Sign Reading Time Taken Blood Pressure 134/90 05/29/2018 8:11 AM CDT Pulse 77 05/29/2018 8:11 AM CDT Temperature 36.7 C (98 F) 05/29/2018 8:11 AM CDT Respiratory Rate - - Oxygen Saturation 97% 05/29/2018 8:11 AM CDT Inhaled Oxygen - - Concentration Weight 122 kg (268 lb 15.4 oz) 05/28/2018 10:33 AM CDT Height 185.4 cm (6' 1") 05/28/2018 10:33 AM CDT Body Mass Index 35.49 05/28/2018 10:33 AM CDT Plan of Treatment Health Maintenance Due Date Last Done Comments HEPATITIS C SCREENING 1958 PHYSICAL (COMPREHENSIVE) 1965 EXAM PERTUSSIS VACCINE 1969 HIV SCREENING 1973 TETANUS VACCINE 1975 DILATED EYE EXAM 1976 FOOT EXAM 1976 HBA1C 1976 MICROALBUMIN 1976 PNEUMONIA VACCINE (DM) 1976 COLORECTAL CANCER 2008 SCREENING SHINGLES RECOMBINANT 2008 VACCINE (1 of 2) INFLUENZA VACCINE 06/03/2018 Procedures Procedure Name Priority Date/Time Associated Diagnosis Comments POC GLUCOSE 05/29/2018 Results for this 6:59 AM CDT procedure are in the results section. CBC Routine 05/29/2018 Typical atrial flutter Results for this 3:50 AM CDT (HCC) procedure are in the results section. BASIC METABOLIC PANEL Routine 05/29/2018 Typical atrial flutter Results for this 3:50 AM CDT (HCC) procedure are in the results section. POC GLUCOSE 05/28/2018 Results for this 9:53 PM CDT procedure are in the results section. POC GLUCOSE 05/28/2018 Results for this 3:17 PM CDT procedure are in the results section. ECG 12-LEAD Routine 05/28/2018 3:03 PM CDT EXTERNAL CARDIOVERSION Routine 05/28/2018 Typical atrial flutter Results for this 2:46 PM CDT (HCC) procedure are in the results section. INTRACARDIAC CATHETER Routine 05/28/2018 Typical atrial flutter Results for this ABLATION WITH 2:46 PM CDT (HCC) procedure are in the COMPREHENSIVE results section. ELECTROPHYSIOLOGIC EVALUATION - TYPICAL FLUTTER POC GLUCOSE 05/28/2018 Results for this 10:48 AM CDT procedure are in the results section. CBC AND DIFF Routine 05/21/2018 Results for this 11:57 AM CDT procedure are in the results section. BASIC METABOLIC PANEL Routine 05/21/2018 Typical atrial flutter Results for this 11:57 AM CDT (HCC) procedure are in the Essential hypertension results section. Paroxysmal atrial fibrillation (HCC) MAGNESIUM 05/21/2018 Results for this 11:57 AM CDT procedure are in the results section. ECG/QRS Routine 05/21/2018 Results for this 10:12 AM CDT procedure are in the results section. from Last 3 Months Results * POC GLUCOSE (05/29/2018 6:59 AM) Only the most recent of 4 results within the time period is included. Glucose, POC 136 (H) 70 - 100 MG/DL [facility] Performing Organization Address City/State/Zipcode Phone Number [facility] [address] [place] [address] * CBC (05/29/2018 3:50 AM) White Blood Cells 8.1 4.5 - 11.0 K/UL [facility] RBC 4.71 4.4 - 5.5 M/UL [facility] Hemoglobin 14.0 13.5 - 16.5 GM/DL [facility] Hematocrit 41.8 40 - 50 % [facility]IN [facility] MCV 88.7 80 - 100 FL [facility] MCH 29.7 26 - 34 PG [facility] MCHC 33.5 32.0 - 36.0 G/DL [facility] RDW 14.3 11 - 15 % [facility]IN [facility] Platelet Count 267 150 - 400 K/UL [facility] MPV 7.5 7 - 11 FL [facility] Specimen Blood Performing Organization Address City/[facility]/Zipcode Phone Number [facility] [address] [place] [address] * BASIC METABOLIC PANEL (05/29/2018 3:50 AM) Only the most recent of 2 results within the time period is included. Sodium 138 137 - 147 MMOL/L [facility] Potassium 3.9 3.5 - 5.1 MMOL/L [facility] Chloride 107 98 - 110 MMOL/L [facility] CO2 25 21 - 30 MMOL/L [facility] Anion Gap 6 3 - 12 [facility] Glucose 141 (H) 70 - 100 MG/DL [facility] Blood Urea Nitrogen 30 (H) 7 - 25 MG/DL [facility] Creatinine 0.98 0.4 - 1.24 MG/DL [facility] Calcium 8.4 (L) 8.5 - 10.6 MG/DL [facility] eGFR Non >60 >60 mL/min [facility] Comment: The eGFR is not validated for use in drug dosing adjustments.Continue to use estimated creatinine clearance per dosing reference text.Please contact the Clinical Pharmacist for questions. eGFR >60 >60 mL/min [facility] Comment: The eGFR is not validated for use in drug dosing adjustments.Continue to use estimated creatinine clearance per dosing reference text.Please contact the Clinical Pharmacist for questions. Specimen Blood Performing Organization Address City/[facility]/Zipcode Phone Number [facility] [address] [place] [address] * EP STUDY (05/28/2018 2:46 PM) Impressions Performed At : OTHER OUTSIDE LAB --ATRIAL FLUTTER was present at the beginning of the procedure. --Successfulcavotricuspid ablation creating bi-directional conduction block. counter-clockwise dependent Atrial Flutter existed at baseline. Successfulsubeustatian isthmus Ablation terminating the AFL. --NORMAL SINUS RHYTHMwas present at the conclusion of the procedure. PLAN: 1.We will monitor the patient overnight in the hospital with plans for discharge in the morning. 2.The patient will continue anticoagulation for at least 4 weeks post procedure as NSR was Restored Narrative Performed At OTHER OUTSIDE LAB Patient Name: Montez Mulligan PROCEDURE: --Atrial Flutter RFA/Cavo-Tricuspid (Subeustachian) Isthmus Ablation --Complete EP study with coronary sinus catheter placement. --Intracardiac 3-D electroanatomic mapping using the [employer] mapping system. --SVT Ablation. --Moderate sedation. BRIEF SUMMARY: Patient presented in atrial flutter.Atrial flutter mapped through the isthmus with 3D mapping and catheter mapping.Also treatment mapping performed.Having demonstrated an isthmus dependent atrial flutter circuit.RF ablation to be done in the line from 0600 o'clock in the SIERRA LEONEAN view across the sub-eustachian isthmus resulted in termination of the AFL abruptly with catholic of sinus rhythm however conduction block was not completely established just conduction delay.Further RF ablation through 0600 quickly resulted in a counterclockwise conduction block however clockwise conduction block was still present.Additional RF along the septal edge of the 0600 o'clock line result in bidirectional conduction block.This was monitored.No catholic of conduction was noted. ROAD OILING TRUCK DRIVER:Babatunde Ordonez M.D. SPOT SPRAYER: NONE INDICATION FOR PROCEDURE: Recurrent AFL PRESENTING RHYTHM: ATRIAL FLUTTER CONSENT: The risks, benefits, indications and alternatives to the procedure were explained in detail to the patient and available family members prior to the procedure.The patient and available family members expressed a good understanding of the procedure and risks.All questions asked were answered and consent was obtained. SEDATION: The patient was transported to the Electrophysiology Laboratory in a non-sedated state and was placed supine on the fluoroscopy table. The patient underwent moderate sedation using Versed and Fentanyl administered by a trained Registered Nurse who was supervised by me. The patient underwent continuous blood pressure, heart rate and O2 saturation monitoring throughout the procedure with supplemental oxygen utilized as needed.Upon completion of the procedure the patient was returned to a monitored bed in stable condition. ACCESS: The left and right groins were prepped and draped in a sterile fashion. 0.25% Marcaine was injected into the subcutaneous tissue overlying the right femoral vein. The right femoral vein was accessed using the modified Seldinger technique with placement of sheaths and catheters as described below. CATHETERS: Cristae-20 Pole defectable EP catheter inserted via a 7.Cymro sheath in the right femoral vein, advanced to the lateral wall of the right atrium close to the elena teminalis with the distal poles at the low lateral RA and the proximal poles at the high lateral RA. Decapolar deflectable EP catheter inserted via a 6 Cymro sheath in the right femoral vein, advanced to the coronary sinus. Thermacool FSt. Russ flex tipcurve ablation catheter inserted via an 8 Cymro SRO sheath in the right femoral vein, advanced to the right atrium utilized for mapping and ablation..One of these catheters was placed at the AV junction intermittently during the procedure. --Cristae-20 Pole deflectable EP catheter inserted via a 7 Cymro sheath in the right femoral vein, advanced to the lateral wall of the right atrium close to the elena terminalis with the distal poles at the low lateral RA and the proximal poles at the high lateral RA. --Decapolar deflectable EP catheter inserted via a 6Fr Cymro sheath in the right femoral vein, advanced to the coronary sinus. --St. Russ FlexTip irrigated ablation catheter inserted via an 8.5 Cymro SRO sheath in the right femoral vein, advanced to the right atrium utilized for mapping and ablation. Also note, the SRO sheath was exchanged at the end of the procedure for a short 8.5 Cymro sheath. ARRHYTHMIAS: -- Atrial flutter that appeared to be cavotricuspid dependent in a counter-clockwise fashion was noted at beginning of the procedure.Atrial cycle length was 210 msec with 2:1 AV block present. EP STUDY FINDINGS: ACTIVATION SEQUENCES AND CONDUCTION TIMES: Activation sequences and conduction times were assessed at baseline during ATRIAL FLUTTER from the Low Lateral Right Atrium (LLRA), along the Lateral RA wall (High, Mid, and Low, HLRA, LMRA, LLRA), to the proximal CS (PCS), within the CS and to the His position Post Ablation pacing was performed from the distal cristae catheter (LLRA) or the lateral aspect of the isthmus and from the CS catheter (the septal aspect of the isthmus).The ablation catheter was also place at various positions in the isthmus along the tricuslpid annulus (e.g.0400, 0600,0800,0900). These activation sequences and conduction times demonstrated: TRANS-ISTHMUS CONDUCTION: Conduction Times: -Baseline LLRA to PCS was 72 ms---> post ablation pacing LLRA to PCS was 143 ms -Baseline PCS to LLRA was 132 ms advancing around the septum roof and down the lateral wall and AFL---> Post Ablation PCS to LLRA was 131 ms -Baseline LLRA to map5:00 was 44 ms----> Post Ablation LL RA to map 5:00 was 166 ms -Baseline PCS to Map 7:00 was 136 ms in AFL going up and around---> post Ablation PCS to Map 7:00 was 147 ms -Baseline N AFL LL RA to His-A was 87 ms---> Post Ablation LL RA to His-A was 133 ms Evidence of Bidirectional Subeustachian Isthmus Conduction Block was Present and persisted post ablation, including after 30 minutes of monitoring. Surface Measurements: -- Initial: ATRIAL FLUTTER with atrial cycle length 210 msec, QRS 79 msec, Q-T NA. -- Final: Sinus rhythm, cycle length 620 msec, P-R 161 msec, QRS 95 msec, Q-T 351 msec. Sinus Node Function: -- NSR was present at the completion of the procedure. Atrial Function: -- Spontaneous atrial flutter was noted at beginning of procedure. AV Alvin Function: A.A-H interval was 73 msec at the completion of the procedure. B.Anterograde AV Wenckebach cycle length was 330 msec at completion of the procedure. C.Retrograde AV Wenckebach cycle length was 320 msec at completion of the procedure. D.Retrograde activation was concentric and decremental at the completion of the procedure His Purkinje System Function: A.HV interval at baseline was 57 ms, and post procedure was B.No block below the His was noted MAPPING and ABLATION: The atrium was noted to be at least mildly enlarged. The ablation catheter was advanced to the right atrium where mapping was performed using the 3-D [employer] mapping system, as well as with catheters along the lateral wall of the right atrium, in the CS and transiently at the His position, as well at various sites through the isthmus. All mapping demonstrated a counter-clockwise activation sequence of the patient's atrial flutter. Conduction was present at baseline through the subeustachian isthmus as expected. Entrainment Mapping was also performed. Ablation of the cava-tricuspid/subeustachian isthmus was performed using a "spot and drag" technique to create a line of RF application beginning at 0600 on the tricuspid annulus and ending at the RA-IVC junction.Lines were also created [id number]. Patient presented in atrial flutter.Atrial flutter mapped through the isthmus with 3D mapping and catheter mapping.Also treatment mapping performed.Having demonstrated an isthmus dependent atrial flutter circuit.RF ablation to be done in the line from 0600 o'clock in the SIERRA LEONEAN view across the sub-eustachian isthmus resulted in termination of the AFL abruptly with catholic of sinus rhythm however conduction block was not completely established just conduction delay.Further RF ablation through 0600 quickly resulted in a counterclockwise conduction block however clockwise conduction block was still present.Additional RF along the septal edge of the 0600 o'clock line result in bidirectional conduction block.This was monitored.No catholic of conduction was noted. Upon completion of the first "line" of RF applications ., bi-directional conduction block occurred. Atrial flutter terminated during the application of RF energy. Additional lines of RF application were done. The termination of atrial flutter occurred with in the isthmus. Upon completion of RF application, bi-directional conduction block was established in the cavotricuspid isthmus. We monitored the patient for an additional 30 minutes and conduction times were reassessed and remained stable.The patient tolerated the procedure well. All mappingdemonstrated a Counterclockwise/Clockwise Activation Sequence of the patient's atrial flutter. Ablation of the cava-tricuspid/subeustachian isthmus using the [employer] Russ Flex tip irrigated ablation catheter was performed using a spot and drag technique to create a line of RF application beginning at 0600 o clock on the tricuspid annulus and ending at the RA-IVC junction. Atrial flutter terminated (with conduction terminating in the subeustachian isthmus) during the application of RF energy.Additional lines of RF application were done. Once Bidirectional Conduction Block was achieved in the cavotricuspid isthmus, we monitored the patient for an additional 30 minutes and conduction times were reassessed and additional programmed stimulation was performed. The patient tolerated the procedure well. No adverse events were noted at the end of the study. Performing Organization Address City/State/Zipcode Phone Number [facility] * EP DEVICE (05/28/2018 2:46 PM) Impressions Performed At : OTHER OUTSIDE LAB --ATRIAL FLUTTER was present at the beginning of the procedure. --Successfulcavotricuspid ablation creating bi-directional conduction block. counter-clockwise dependent Atrial Flutter existed at baseline. Successfulsubeustatian isthmus Ablation terminating the AFL. --NORMAL SINUS RHYTHMwas present at the conclusion of the procedure. PLAN: 1.We will monitor the patient overnight in the hospital with plans for discharge in the morning. 2.The patient will continue anticoagulation for at least 4 weeks post procedure as NSR was Restored Narrative Performed At OTHER OUTSIDE LAB Patient Name: Montez Mulligan PROCEDURE: --Atrial Flutter RFA/Cavo-Tricuspid (Subeustachian) Isthmus Ablation --Complete EP study with coronary sinus catheter placement. --Intracardiac 3-D electroanatomic mapping using the [employer] mapping system. --SVT Ablation. --Moderate sedation. BRIEF SUMMARY: Patient presented in atrial flutter.Atrial flutter mapped through the isthmus with 3D mapping and catheter mapping.Also treatment mapping performed.Having demonstrated an isthmus dependent atrial flutter circuit.RF ablation to be done in the line from 0600 o'clock in the SIER[place] LEONEAN view across the sub-eustachian isthmus resulted in termination of the AFL abruptly with catholic of sinus rhythm however conduction block was not completely established just conduction delay.Further RF ablation through 0600 quickly resulted in a counterclockwise conduction block however clockwise conduction block was still present.Additional RF along the septal edge of the 0600 o'clock line result in bidirectional conduction block.This was monitored.No catholic of conduction was noted. ROAD OILING TRUCK DRIVER:Babatunde Ordonez M.D. SPOT SPRAYER: NONE INDICATION FOR PROCEDURE: Recurrent AFL PRESENTING RHYTHM: ATRIAL FLUTTER CONSENT: The risks, benefits, indications and alternatives to the procedure were explained in detail to the patient and available family members prior to the procedure.The patient and available family members expressed a good understanding of the procedure and risks.All questions asked were answered and consent was obtained. SEDATION: The patient was transported to the Electrophysiology Laboratory in a non-sedated state and was placed supine on the fluoroscopy table. The patient underwent moderate sedation using Versed and Fentanyl administered by a trained Registered Nurse who was supervised by me. The patient underwent continuous blood pressure, heart rate and O2 saturation monitoring throughout the procedure with supplemental oxygen utilized as needed.Upon completion of the procedure the patient was returned to a monitored bed in stable condition. ACCESS: The left and right groins were prepped and draped in a sterile fashion. 0.25% Marcaine was injected into the subcutaneous tissue overlying the right femoral vein. The right femoral vein was accessed using the modified Seldinger technique with placement of sheaths and catheters as described below. CATHETERS: Cristae-20 Pole defectable EP catheter inserted via a 7.Cymro sheath in the right femoral vein, advanced to the lateral wall of the right atrium close to the elena teminalis with the distal poles at the low lateral RA and the proximal poles at the high lateral RA. Decapolar deflectable EP catheter inserted via a 6 Cymro sheath in the right femoral vein, advanced to the coronary sinus. Thermacool FSt[employer] Russ flex tipcurve ablation catheter inserted via an 8 Cymro SRO sheath in the right femoral vein, advanced to the right atrium utilized for mapping and ablation..One of these catheters was placed at the AV junction intermittently during the procedure. --Cristae-20 Pole deflectable EP catheter inserted via a 7 Cymro sheath in the right femoral vein, advanced to the lateral wall of the right atrium close to the elena terminalis with the distal poles at the low lateral RA and the proximal poles at the high lateral RA. --Decapolar deflectable EP catheter inserted via a 6Fr Cymro sheath in the right femoral vein, advanced to the coronary sinus. --St. Russ FlexTip irrigated ablation catheter inserted via an 8.5 Cymro SRO sheath in the right femoral vein, advanced to the right atrium utilized for mapping and ablation. Also note, the SRO sheath was exchanged at the end of the procedure for a short 8.5 Cymro sheath. ARRHYTHMIAS: -- Atrial flutter that appeared to be cavotricuspid dependent in a counter-clockwise fashion was noted at beginning of the procedure.Atrial cycle length was 210 msec with 2:1 AV block present. EP STUDY FINDINGS: ACTIVATION SEQUENCES AND CONDUCTION TIMES: Activation sequences and conduction times were assessed at baseline during ATRIAL FLUTTER from the Low Lateral Right Atrium (LLRA), along the Lateral RA wall (High, Mid, and Low, HLRA, LMRA, LLRA), to the proximal CS (PCS), within the CS and to the His position Post Ablation pacing was performed from the distal cristae catheter (LLRA) or the lateral aspect of the isthmus and from the CS catheter (the septal aspect of the isthmus).The ablation catheter was also place at various positions in the isthmus along the tricuslpid annulus (e.g.0400, 0600,0800,0900). These activation sequences and conduction times demonstrated: TRANS-ISTHMUS CONDUCTION: Conduction Times: -Baseline LLRA to PCS was 72 ms---> post ablation pacing LLRA to PCS was 143 ms -Baseline PCS to LLRA was 132 ms advancing around the septum roof and down the lateral wall and AFL---> Post Ablation PCS to LLRA was 131 ms -Baseline LLRA to map5:00 was 44 ms----> Post Ablation LL RA to map 5:00 was 166 ms -Baseline PCS to Map 7:00 was 136 ms in AFL going up and around---> post Ablation PCS to Map 7:00 was 147 ms -Baseline N AFL LL RA to His-A was 87 ms---> Post Ablation LL RA to His-A was 133 ms Evidence of Bidirectional Subeustachian Isthmus Conduction Block was Present and persisted post ablation, including after 30 minutes of monitoring. Surface Measurements: -- Initial: ATRIAL FLUTTER with atrial cycle length 210 msec, QRS 79 msec, Q-T NA. -- Final: Sinus rhythm, cycle length 620 msec, P-R 161 msec, QRS 95 msec, Q-T 351 msec. Sinus Node Function: -- NSR was present at the completion of the procedure. Atrial Function: -- Spontaneous atrial flutter was noted at beginning of procedure. AV Alvin Function: A.A-H interval was 73 msec at the completion of the procedure. B.Anterograde AV Wenckebach cycle length was 330 msec at completion of the procedure. C.Retrograde AV Wenckebach cycle length was 320 msec at completion of the procedure. D.Retrograde activation was concentric and decremental at the completion of the procedure His Purkinje System Function: A.HV interval at baseline was 57 ms, and post procedure was B.No block below the His was noted MAPPING and ABLATION: The atrium was noted to be at least mildly enlarged. The ablation catheter was advanced to the right atrium where mapping was performed using the 3-D Ensite mapping system, as well as with catheters along the lateral wall of the right atrium, in the CS and transiently at the His position, as well at various sites through the isthmus. All mapping demonstrated a counter-clockwise activation sequence of the patient's atrial flutter. Conduction was present at baseline through the subeustachian isthmus as expected. Entrainment Mapping was also performed. Ablation of the cava-tricuspid/subeustachian isthmus was performed using a "spot and drag" technique to create a line of RF application beginning at 0600 on the tricuspid annulus and ending at the RA-IVC junction.Lines were also created [id number]. Patient presented in atrial flutter.Atrial flutter mapped through the isthmus with 3D mapping and catheter mapping.Also treatment mapping performed.Having demonstrated an isthmus dependent atrial flutter circuit.RF ablation to be done in the line from 0600 o'clock in the [place] [employer] view across the sub-eustachian isthmus resulted in termination of the AFL abruptly with catholic of sinus rhythm however conduction block was not completely established just conduction delay.Further RF ablation through 0600 quickly resulted in a counterclockwise conduction block however clockwise conduction block was still present.Additional RF along the septal edge of the 0600 o'clock line result in bidirectional conduction block.This was monitored.No catholic of conduction was noted. Upon completion of the first "line" of RF applications ., bi-directional conduction block occurred. Atrial flutter terminated during the application of RF energy. Additional lines of RF application were done. The termination of atrial flutter occurred with in the isthmus. Upon completion of RF application, bi-directional conduction block was established in the cavotricuspid isthmus. We monitored the patient for an additional 30 minutes and conduction times were reassessed and remained stable.The patient tolerated the procedure well. All mappingdemonstrated a Counterclockwise/Clockwise Activation Sequence of the patient's atrial flutter. Ablation of the cava-tricuspid/subeustachian isthmus using the [employer] Flex tip irrigated ablation catheter was performed using a spot and drag technique to create a line of RF application beginning at 0600 o clock on the tricuspid annulus and ending at the RA-IVC junction. Atrial flutter terminated (with conduction terminating in the subeustachian isthmus) during the application of RF energy.Additional lines of RF application were done. Once Bidirectional Conduction Block was achieved in the cavotricuspid isthmus, we monitored the patient for an additional 30 minutes and conduction times were reassessed and additional programmed stimulation was performed. The patient tolerated the procedure well. No adverse events were noted at the end of the study. Performing Organization Address City/[facility]/Zipcode Phone Number OTHER OUTSIDE LAB * CBC AND DIFF (05/21/2018 11:57 AM) Hemoglobin 16.90 14.00 - 18.00 g/dL [facility] Hematocrit 48.30 42.00 - 52.00 % [facility] Platelet Count 336 150 - 400 K/uL [facility] White Blood Cells 8.5 4.0 - 11.0 K/uL [facility] Neutrophils 64.9 37.0 - 92.0 % [facility] Absolute Neutrophil Count 5.6 2.0 - 7.8 [facility] Lymphocytes 27.5 10.0 - 58.5 % [facility] Absolute Lymph Count 2.3 0.6 - 4.1 [facility] Mid% (Cells not Lym or 7.6 0.1 - 24.0 % [facility] Seg) Mid# (Cells not Lym or 0.6 0.0 - 1.8 [facility] Seg) RBC 5.53 4.20 - 6.10 M/uL [facility] MCV 87 80 - 99 fL [facility] MCH 31 27 - 31 pg [facility] MCHC 35 33 - 37 g/dL [facility] RDW 13.4 11.5 - 17.0 % [facility] Performing Organization Address City/[facility] Phone Number [facility] [phone] [facility] [address] [place] [address] * MAGNESIUM (05/21/2018 11:57 AM) Magnesium 1.9 1.5 - 2.5 mg/dL [facility] Comment: Test Performed at: [facility] [id number] [address] [facility] [place], [id number] TIFFANIE NICHOLSON DO,MPH Performing Organization Address City/[facility]/Zipcode Phone Number [facility] [phone] [place] [address] * ECG/QRS (05/21/2018 10:12 AM) QRS DURATION 90 OTHER OUTSIDE LAB Performing Organization Address City/[facility] Phone Number OTHER OUTSIDE LAB from Last 3 Months
--- OUTSIDE RECORDS SUMMARY | 2018-05-29 17:12 | XMS REPORT | Encounter Summary ---
Author Author [facility] Organization [facility] Address Unknown Phone Unavailable Care Team Providers Care Store Custodian Name Role Phone Antonio Hawthorne MD PCP Reason for Visit * Auth/Cert (Routine) Status Reason Specialty Diagnoses / Referred By Referred To Procedures Contact Contact Encounter Details Date Type Department Care Team Description 05/28/2018 Hospital Cardiac Catheterization Babatunde Ordonez MD Atrial flutter (HCC) - Encounter Laboratory [address] 05/29/[address] [place] [address] [place] [address] [phone] Social History Tobacco Use Types Packs/Day Years Used Date Never Assessed Sex Assigned at Date Recorded Not on file as of this encounter Last Filed Vital Signs Vital Sign Reading [...] Mass Index 35.49 05/28/2018 10:33 AM CDT in this encounter Medications at Time of Discharge Medication Sig. Disp. Refills Start Date End Date apixaban (ELIQUIS) 5 mg Take 5 mg by mouth twice tablet daily. diltiazem CD (CARDIZEM Take one capsule by mouth 180 capsule 3 2017 CD) 180 mg daily. capsuleIndications: Typical atrial flutter (HCC) escitalopram oxalate Take 10 mg by mouth (LEXAPRO) 10 mg tablet daily. insulin aspart U-100 Inject 16 Units under the (NOVOLOG FLEXPEN U-100 skin three times daily INSULIN) 100 unit/mL with meals. injection PEN insulin detemir (LEVEMIR Inject 48 Units under the FLEXPEN SC) skin at bedtime daily. metFORMIN (GLUCOPHAGE) Take 1,000 mg by mouth 1,000 mg tablet twice daily with meals. metoprolol XL (TOPROL XL) Take one tablet by mouth 90 tablet 3 2017 50 mg extended release daily. tablet niacin ER (NIASPAN) 500 Take 1,000 mg by mouth mg tablet daily. Take with food. as of this encounter Progress Notes * Karolina Tabor RN - 05/29/2018 8:38 AM CDT Patient discharged to home with all belongings. Discharge instructions, med reconciliation and home wound care instructions given and explained to patient and family both verbally and written. Accompanied by . No complaints of pain or discomfort. Right groin remains clean, dry, and intact with no evidence of a hematoma after ambulation. [facility] [employer] Patient to follow up with [facility] ([facility]) or on-call physician with any additional questions or concerns. All contact numbers provided. Patient and family acceptant of DC instuctions and report understanding to all information. * Isidoro Gonzalez RN - 05/28/2018 4:52 PM CDT I have reviewed the notes, assessment, and/or procedures performed by Cain Bowman and concur with her documentation unless otherwise noted. * Babatunde Ordonez MD - 05/28/2018 2:47 PM CDT Cardiac Electrophysiology Brief Post-Procedure Note Attending Woods Rider: Babatunde Ordonez MD Fellow: NONE Preoperative diagnosis: AFL Postoperative diagnosis: Same Procedure(s) Performed: EP study and typical flutter ablation Procedure Description: Successful Patient presented in atrial flutter. Atrial flutter mapped through the isthmus with 3D mapping and catheter mapping. Also treatment mapping performed. Having demonstrated an isthmus dependent atrial flutter circuit. RF ablation to be done in the line from 0600 o'clock in the BARBADIAN view across the sub- eustachian isthmus resulted in termination of the AFL abruptly with alevism of sinus rhythm however conduction block was not completely established just conduction delay. Further RF ablation through 0600 quickly resulted in a counterclockwise conduction block however clockwise conduction block was still present. Additional RF along the septal edge of the 0600 o'clock line result in bidirectional conduction block. This was monitored. No alevism of conduction was noted. Conduction Times: -Baseline LLRA to PCS was 72 ms---> post ablation pacing LLRA to PCS was 143 ms -Baseline PCS to LLRA was 132 ms advancing around the septum roof and down the lateral wall and AFL---> Post Ablation PCS to LLRA was 131 ms -Baseline LLRA to map 5:00 was 44 ms----> Post Ablation LL RA to map 5:00 was 166 ms -Baseline PCS to Map 7:00 was 136 ms in AFL going up and around---> post Ablation PCS to Map 7:00 was 147 ms -Baseline N AFL LL RA to His-A was 87 ms---> Post Ablation LL RA to His-A was 133 ms Anesthesia: Moderate sedation via RN Estimated blood loss: 10 mL Complications: None Specimens removed: None Sheaths: All via the RFV--8.5 South African SRO guide sheath used for mapping ablation catheter; 6 South African sheath for CS catheter; 7 South African sheath for the elena catheter based along the lateral RA wall Recommendations: - Please refer to post-procedure note for full recommendations Pain control as needed --remove sheaths --continue Toprol-XL 50 mill grams daily assess heart rate tomorrow morning after dose in the morning. If heart rate 75 bpm or greater add diltiazem 180 mg daily --Continue anticoagulation --Follow-up with Dr. Anusha Valencia his primary geoduck diver in [facility] in [address] Ordonez in 3 months * Cain Bowman, RN - 05/28/2018 10:10 AM CDT Patient arrived on unit via ambulation accompanied by family. Patient transferred to the bed without assistance. Frailty score equals 3 Assessment completed, refer to flowsheet for details. Orders released, reviewed, and implemented as appropriate. Oriented to surroundings, call light within reach. Plan of care reviewed. Will continue to monitor and assess. Bilateral groin sites auscultated, no bruits present. in this encounter Plan of Treatment Not on fileas of this encounter Procedures Procedure Name Priority Date/Time Associated Diagnosis [...] ECG 12-LEAD Routine 05/28/2018 3:03 PM CDT INTRACARDIAC CATHETER Routine 05/28/2018 Typical atrial flutter Results for this ABLATION WITH 2:46 PM CDT (HCC) procedure are in the COMPREHENSIVE results section. ELECTROPHYSIOLOGIC EVALUATION - TYPICAL FLUTTER EXTERNAL CARDIOVERSION Routine 05/28/2018 Typical atrial flutter Results for this 2:46 PM CDT (HCC) procedure are in the results section. POC GLUCOSE 05/28/2018 Results for this 10:48 AM CDT procedure are in the results section. in this encounter Results * POC GLUCOSE (05/29/2018 6:59 AM) Glucose, POC 136 (H) 70 - 100 MG/DL [facility] Performing Organization Address City/State/Zipcode Phone Number [facility] [address] [place] [address] * BASIC METABOLIC PANEL (05/29/2018 3:50 AM) Sodium 138 137 - 147 MMOL/L [facility] Potassium 3.9 3.5 - 5.1 MMOL/L [facility] Chloride 107 98 - 110 MMOL/L [facility] CO2 25 21 - 30 MMOL/L [facility] Anion Gap 6 3 - 12 [facility] Glucose 141 (H) 70 - 100 MG/DL [facility] Blood Urea Nitrogen 30 (H) 7 - 25 MG/DL [facility] Creatinine 0.98 0.4 - 1.24 MG/DL [facility] Calcium 8.4 (L) 8.5 - 10.6 MG/DL [facility] eGFR Non >60 >60 mL/min [facility] Comment: The eGFR is not validated for use in drug dosing adjustments.Continue to use estimated creatinine clearance per dosing reference text.Please contact the Clinical Pharmacist for questions. eGFR >60 >60 mL/min [facility] Comment: The eGFR is not validated for use in drug dosing adjustments.Continue to use estimated creatinine clearance per dosing reference text.Please contact the Clinical Pharmacist for questions. Specimen Blood Performing Organization Address City[facility] Phone Number [facility] [address] [place] [address] * CBC (05/29/2018 3:50 AM) White Blood Cells 8.1 4.5 - 11.0 K/[facility] RBC 4.71 4.4 - 5.5 M/[facility] Hemoglobin 14.0 13.5 - 16.5 GM/DL [facility] Hematocrit 41.8 40 - 50 % [facility] MCV 88.7 80 - 100 FL [facility] MCH 29.7 26 - 34 PG [facility] MCHC 33.5 32.0 - 36.0 G/DL [facility]IN [facility] RDW 14.3 11 - 15 % MAIN LAB Platelet Count 267 150 - 400 K/[facility] MPV 7.5 7 - 11 FL [facility] Specimen Blood Performing Organization Address [facility] Phone Number [facility] [address] [place] [address] * POC GLUCOSE (05/28/2018 9:53 PM) Glucose, POC 154 (H) 70 - 100 MG/DL [facility] Performing Organization Address [facility] Phone Number [facility] [address] [place] [phone] * POC GLUCOSE (05/28/2018 3:17 PM) Glucose, POC 107 (H) 70 - 100 MG/DL [facility] Performing Organization Address [facility] Phone Number [facility] [address] [place] [phone] * EP DEVICE (05/28/2018 2:46 PM) Impressions [...] placement. --Intracardiac 3-D electroanatomic mapping using the Term[employer] webtech limited mapping system. --SVT Ablation. --Moderate sedation. BRIEF SUMMARY: Patient presented in atrial flutter.Atrial flutter mapped through the isthmus with 3D mapping and catheter mapping.Also treatment mapping performed.Having demonstrated an isthmus dependent atrial flutter circuit.RF ablation to be done in the line from 0600 o'clock in the BARBADIAN view across the sub-eustachian isthmus resulted in termination of the AFL abruptly with alevism of sinus rhythm however conduction block was not completely established just conduction delay.Further RF ablation through 0600 quickly resulted in a counterclockwise conduction block however clockwise conduction block was still present.Additional RF along the septal edge of the 0600 o'clock line result in bidirectional conduction block.This was monitored.No alevism of conduction was noted. BEDSPREAD INSPECTOR:Babatunde Ordonez M.D. COP EXAMINER: NONE INDICATION FOR PROCEDURE: Recurrent AFL PRESENTING [...] trained Registered Nurse who was supervised by co. The patient underwent continuous blood pressure, heart [...] Pole defectable EP catheter inserted via a 7.South African sheath in the right femoral vein, advanced to the lateral wall of the right atrium close to the elena teminalis with the distal poles at the low lateral RA and the proximal poles at the high lateral RA. Decapolar deflectable EP catheter inserted via a 6 South African sheath in the right femoral vein, advanced to the coronary sinus. Thermacool FSt. Russ flex tipcurve ablation catheter inserted via an 8 South African SRO sheath in the right femoral vein, advanced to the right atrium utilized for mapping and ablation..One of these catheters was placed at the AV junction intermittently during the procedure. --Cristae-20 Pole deflectable EP catheter inserted via a 7 South African sheath in the right femoral vein, advanced to the lateral wall of the right atrium close to the elena terminalis with the distal poles at the low lateral RA and the proximal poles at the high lateral RA. --Decapolar deflectable EP catheter inserted via a 6Fr South African sheath in the right femoral vein, advanced to the coronary sinus. --St. Russ FlexTip irrigated ablation catheter inserted via an 8.5 South African SRO sheath in the right femoral vein, advanced to the right atrium utilized for mapping and ablation. Also note, the SRO sheath was exchanged at the end of the procedure for a short 8.5 South African sheath. ARRHYTHMIAS: -- Atrial flutter that appeared [...] at the RA-IVC junction.Lines were also created [id number]. Patient presented in atrial flutter.Atrial flutter mapped through the isthmus with 3D mapping and catheter mapping.Also treatment mapping performed.Having demonstrated an isthmus dependent atrial flutter circuit.RF ablation to be done in the line from 0600 o'clock in the BARBADIAN view across the sub-eustachian isthmus resulted in termination of the AFL abruptly with alevism of sinus rhythm however conduction block was not completely established just conduction delay.Further RF ablation through 0600 quickly resulted in a counterclockwise conduction block however clockwise conduction block was still present.Additional RF along the septal edge of the 0600 o'clock line result in bidirectional conduction block.This was monitored.No alevism of conduction was noted. Upon completion of [...] Phone Number OTHER OUTSIDE LAB * EP STUDY (05/28/2018 2:46 PM) Impressions [...] the line from 0600 o'clock in the BARBADIAN view across the sub-eustachian isthmus resulted in termination of the AFL abruptly with alevism of sinus rhythm however conduction block was not completely established just conduction delay.Further RF ablation through 0600 quickly resulted in a counterclockwise conduction block however clockwise conduction block was still present.Additional RF along the septal edge of the 0600 o'clock line result in bidirectional conduction block.This was monitored.No alevism of conduction was noted. BEDSPREAD INSPECTOR:Babatunde Ordonez M.D. COP EXAMINER: NONE INDICATION FOR PROCEDURE: Recurrent AFL PRESENTING [...] Pole defectable EP catheter inserted via a 7.South African sheath in the right femoral vein, advanced to the lateral wall of the right atrium close to the elena teminalis with the distal poles at the low lateral RA and the proximal poles at the high lateral RA. Decapolar deflectable EP catheter inserted via a 6 South African sheath in the right femoral vein, advanced to the coronary sinus. Thermacool FSt. Russ flex tipcurve ablation catheter inserted via an 8 South African SRO sheath in the right femoral vein, advanced to the right atrium utilized for mapping and ablation..One of these catheters was placed at the AV junction intermittently during the procedure. --Cristae-20 Pole deflectable EP catheter inserted via a 7 South African sheath in the right femoral vein, advanced to the lateral wall of the right atrium close to the elena terminalis with the distal poles at the low lateral RA and the proximal poles at the high lateral RA. --Decapolar deflectable EP catheter inserted via a 6Fr South African sheath in the right femoral vein, advanced to the coronary sinus. --St. Russ FlexTip irrigated ablation catheter inserted via an 8.5 South African SRO sheath in the right femoral vein, advanced to the right atrium utilized for mapping and ablation. Also note, the SRO sheath was exchanged at the end of the procedure for a short 8.5 South African sheath. ARRHYTHMIAS: -- Atrial flutter that appeared [...] at the RA-IVC junction.Lines were also created [id number]. Patient presented in atrial flutter.Atrial flutter mapped through the isthmus with 3D mapping and catheter mapping.Also treatment mapping performed.Having demonstrated an isthmus dependent atrial flutter circuit.RF ablation to be done in the line from 0600 o'clock in the BARBADIAN view across the sub-eustachian isthmus resulted in termination of the AFL abruptly with alevism of sinus rhythm however conduction block was not completely established just conduction delay.Further RF ablation through 0600 quickly resulted in a counterclockwise conduction block however clockwise conduction block was still present.Additional RF along the septal edge of the 0600 o'clock line result in bidirectional conduction block.This was monitored.No alevism of conduction was noted. Upon completion of [...] City/State/Zipcode Phone Number OTHER OUTSIDE LAB * POC GLUCOSE (05/28/2018 10:48 AM) Glucose, POC 215 (H) 70 - 100 MG/DL [facility] Performing Organization Address [facility]/State[facility] Phone Number [facility] [address] [place] [address] in this encounter Visit Diagnoses Diagnosis Typical atrial flutter (HCC) - Primary Atrial flutter Admitting Diagnoses Diagnosis Typical atrial flutter (HCC) - UNKNOWN Atrial flutter Atrial flutter (HCC) Atrial flutter Administered Medications Medication Order MAR Action Action Date Dose Rate Site acetaminophen (TYLENOL) tablet 325-650 mg 325-650 mg, Oral, EVERY 4 HOURS PRN, Starting Sun05/28/18 at 1502, Until Sun05/29/18 at 1040, Pain non-opioid: may be used alone or in combination with opioid analgesia, TOTAL ACETAMINOPHEN DOSE NOT TO EXCEED 4GM DAILY aluminum/magnesium hydroxide (MAALOX) oral suspension 30 mL 30 mL, Oral, EVERY 4 HOURS PRN, Starting Sun05/28/18 at 1012, Until Sun05/29/18 at 1040, Indigestion/Heartburn, Admission/Obs/Extended Recovery apixaban (ELIQUIS) tablet 5 mg Given 05/28/2018 5 mg 5 mg, Oral, TWICE DAILY, First dose on 21:57 CDT Sun05/28/18 at 2100, Until Discontinued, May crush 5 mg or 2.5 mg tablets and suspend in 60 mL of D5W followed by immediate delivery through a nasogastric tube. No information regarding administration of suspension by mouth is available. Ok to resume 4 hours post hemostasis NOTE: This is a HIGH ALERT Medication. Given 05/29/2018 5 mg 08:10 CDT diltiazem CD (cardIZEM CD) capsule 180 Given 05/29/2018 180 mg mg 08:10 CDT 180 mg, Oral, DAILY, First dose on Sun05/29/18 at 0800, Until Discontinued docusate (COLACE) capsule 100 mg 100 mg, Oral, DAILY PRN, Starting Sun05/28/18 at 1012, Until Sun05/29/18 at 1040, Constipation PO, Hold for loose stools. escitalopram oxalate (LEXAPRO) tablet 10 Given 05/28/2018 10 mg mg 21:57 CDT 10 mg, Oral, DAILY, First dose on Sun05/28/18 at 1230, Until Discontinued, Admission/Obs/Extended Recovery Given 05/29/2018 10 mg 08:10 CDT fentaNYL citrate PF (SUBLIMAZE) injection 25-75 mcg 25-75 mcg, Intravenous, EVERY 2 HOURS PRN, Starting Sun05/28/18 at 1502, Until Sun05/29/18 at 1040, Pain Injectable HYDROcodone/acetaminophen (NORCO) 5/325 mg tablet 1 tablet 1 tablet, Oral, EVERY 4 HOURS PRN, Starting Sun05/28/18 at 1502, Until Sun05/29/18 at 1040, Pain PO, TOTAL ACETAMINOPHEN DOSE NOT TO EXCEED 4GM DAILY NOTE: This is a HIGH ALERT Medication. insulin aspart U-100 (NOVOLOG FLEXPEN) Given 05/28/2018 16 Units Abdomen:RLQ injection PEN 16 Units 16:31 CDT 16 Units, Subcutaneous, THREE TIMES DAILY WITH MEALS, First dose on Sun05/28/18 at 1230, Until Discontinued, Give scheduled doses of Insulin Aspart with meals/food. NOTE: Rapid acting insulins should be given with food/meal. Use caution when patient is NPO. NOTE: This is a HIGH ALERT Medication. Given 05/29/2018 16 Units Abdomen:LUQ 07:26 CDT insulin glargine (LANTUS SOLOSTAR, Given 05/28/2018 48 Units Abdomen: LLQ BASAGLAR) injection PEN 48 Units 21:57 CDT 48 Units, Subcutaneous, AT BEDTIME DAILY, First dose on Sun05/28/18 at 2100, Until Discontinued, -- Do not mix with other insulins -- NOTE: This is a HIGH ALERT Medication. lidocaine PF 1% (10 mg/mL) injection 0.1-2 mL 0.1-2 mL, Injection, NEEDED, Starting Sun05/28/18 at 1012, Until Sun05/29/18 at 1040, Other..., for peripheral IV insertion, Pre-Op metoprolol XL (TOPROL XL) tablet 50 mg Given 05/28/2018 50 mg 50 mg, Oral, ONCE, 1 dose, Sun05/28/18 15:00 CDT at 1500, Hold for heart rate < 50 bpm or systolic BP < 100 tablets may be cut in half, DO NOT CRUSH or CHEW metoprolol XL (TOPROL XL) tablet 50 mg Given 05/29/2018 50 mg 50 mg, Oral, DAILY, First dose on Sun 06:04 CDT 05/29/18 at 0600, Until Discontinued, Hold for heart rate < 50 bpm or systolic BP < 100 tablets may be cut in half, DO NOT CRUSH or CHEW nitroglycerin (NITROSTAT) tablet 0.4 mg 0.4 mg, Sublingual, EVERY 5 MIN PRN, Starting Sun05/28/18 at 1012, Until Sun05/29/18 at 1040, Chest Pain, Not to exceed 3 doses per incident of chest pain. Notify physician if chest pain persists after 3 doses. ondansetron (ZOFRAN) injection 4 mg 4 mg, Intravenous, EVERY 6 HOURS PRN, Starting Sun05/28/18 at 1501, Until Sun05/29/18 at 1040, Nausea/Vomiting Injectable sodium chloride 0.9 % infusion Given - New 05/28/2018 75 mL/hr 1,000 mL, Intravenous, at 75 mL/hr, Bag 11:01 CDT CONTINUOUS, Starting Sun05/28/18 at 1015, Until Sun05/28/18 at 1505, -EF >35%: NS @ 75 mL/hr to be started the morning of the procedure (not to exceed 750 mL) -EF <35%: NS @ 20 mL/hr to be started the morning of procedure (not to exceed 500 mL) sodium chloride 0.9 % infusion Infusion 05/28/2018 75 mL/hr 1,000 mL, Intravenous, CONTINUOUS, Restarted 15:32 CDT Starting 05/28/18 at 1515, Until 05/29/18 at 1040, IV infusion to run at 75 mL/hr, saline lock when patient tolerates PO intake. in this encounter
--- OUTSIDE RECORDS SUMMARY | 2018-05-29 17:12 | XMS REPORT | Encounter Summary ---
Author Author [facility] Organization [facility] Address Unknown Phone Unavailable Care Team Providers Care Bias Cutting Machine Operator Vertical Name Role Phone Antonio Hawthorne MD PCP Encounter Details Date Type Department Care Team Description 05/28/2018 Procedure Pass [facility] EP LAB [address] [facility] [place] [address] Social History Tobacco Use Types Packs/Day Years Used Date Never Assessed Sex Assigned at Date Recorded Not on file as of this encounter Plan of Treatment Not on fileas of this encounter Visit Diagnoses Not on filein this encounter
--- OUTSIDE RECORDS SUMMARY | 2018-05-29 17:13 | XMS REPORT | Encounter Summary ---
Author Author [facility] Organization [facility] Address Unknown Phone Unavailable Care Team Providers Care Security And Compliance Project Manager Name Role Phone Antonio Hawthorne MD PCP Reason for Visit * Reason Comments Labs Only Encounter Details Date Type Department Care Team Description 05/21/2018 Lab Only [facility] Typical atrial flutter Medicine (HCC); [facility] 3rd Essential hypertension; fl [address] Paroxys[address] fibrillation (HCC) [place] [address] Social History Tobacco Use Types Packs/Day Years Used Date Never Assessed Sex Assigned at Date Recorded Not on file as of this encounter Plan of Treatment Not on fileas of this encounter Procedures Procedure Name Priority Date/Time Associated Diagnosis Comments BASIC METABOLIC PANEL Routine 05/21/2018 Typical atrial flutter Results for this 11:57 AM CDT (HCC) procedure are in the Essential hypertension results section. Paroxysmal atrial fibrillation (HCC) in this encounter Results * BASIC METABOLIC PANEL (05/21/2018 11:57 AM) Sodium 138 135 - 148 mEq/L [facility] Potassium 5.0 3.5 - 5.1 mEq/L [facility] Chloride 102 98 - 108 mEq/L [facility] Blood Urea Nitrogen 28 (H) 7 - 25 mg/dL [facility] Glucose 263 (H) 70 - 100 mg/dL [facility] Calcium 8.70 8.60 - 10.30 mg/dL [facility] eGFR Non 64.43 [facility] CO2 29 21 - 32 Zach/L [facility] Creatinine 1.22 0.40 - 1.24 mg/dL [facility] Specimen Blood Performing Organization Address City/State/Zipcode Phone Number [facility] [phone] [facility], [facility] [address] [place] [address] in this encounter Visit Diagnoses Diagnosis Typical atrial flutter (HCC) Atrial flutter Essential hypertension Unspecified essential hypertension Paroxysmal atrial fibrillation (HCC) Atrial fibrillation
--- OUTSIDE RECORDS SUMMARY | 2018-05-29 17:13 | XMS REPORT | Encounter Summary ---
Author Author [facility] Organization [facility] Address Unknown Phone Unavailable Care Team Providers Care Fig Caprifier Name Role Phone Antonio Hawthorne MD PCP Reason for Visit * Reason Comments Precertification Approval for EPS/RFA through [facility] Encounter Details Date Type Department Care Team Description 05/21/2018 Documentation [facility] Neal Brambila RN Precertification [place] [address] (Approval for EPS/RFA [address] [facility] through [facility]) [place] [address] Social History Tobacco Use Types Packs/Day Years Used Date Never Assessed Sex Assigned at Date Recorded Not on file as of this encounter Progress Notes * Neal Brambila RN - 05/21/2018 4:21 PM CDT [place] with [facility], , confirmed benefits and eligibility: Current and active since 01/01/2017, $1500 deductible with required co-insurance of 40% to max OOP $2000, then plan will pay 100% of allowable charges. No pre- certification is required for EPS/RFA for Atrial Flutter, Cardioversion or for CINTHYA if needed [phone]. Reference #[id number] in this encounter Plan of Treatment Not on fileas of this encounter Visit Diagnoses Not on filein this encounter
--- OUTSIDE RECORDS SUMMARY | 2018-05-29 17:13 | XMS REPORT | Encounter Summary ---
Author Author [facility] Organization [facility] Address Unknown Phone Unavailable Care Team Providers Care Elevator Repairer Apprentice Name Role Phone Antonio Hawthorne MD PCP Encounter Details Date Type Department Care Team Description 05/21/2018 Prep for Case [facility] Cardiology Babatunde Ordonez MD Typical atrial flutter [facility] [place] [facility] [address] (HCC) (Primary Dx) [facility] [address] [address] [place] [address] [place] [address] [phone] Social History Tobacco Use Types Packs/Day Years Used Date Never Assessed Sex Assigned at Date Recorded Not on file as of this encounter Plan of Treatment Not on fileas of this encounter Visit Diagnoses Diagnosis Typical atrial flutter (HCC) - Primary Atrial flutter
--- OUTSIDE RECORDS SUMMARY | 2018-05-29 17:13 | XMS REPORT | Encounter Summary ---
Author Author [facility] Organization [facility] Address Unknown Phone Unavailable Care Team Providers Care Cathead Operator Name Role Phone Antonio Hawthorne MD PCP Reason for Visit * Reason Comments EP Pre-Procedure 05/28/18 Atrial Flutter using Radiofrequency Ablation Instructions Encounter Details Date Type Department Care Team Description 05/21/2018 Documentation [facility] Cardiology Hailee Greco RN EP Pre-Procedure [facility] [place] [facility] 3rd Instructions (05/28/18 fl [address] Atrial Flutter using [address] Radiofrequency Ablation) [place] [address] Social History Tobacco Use Types Packs/Day Years Used Date Never Assessed Sex Assigned at Date Recorded Not on file as of this encounter Instructions * Patient Instructions - Hailee Greco RN - 05/21/2018 11:30 AM CDT Formatting of this note may be different from the original. ELECTROPHYSIOLOGY PRE-ADMISSION INSTRUCTIONS Patient Name: Montez Mulligan Date of : 1960 (57 y.o.) Today's Date: 05/21/2018 PROCEDURE: You are scheduled for a Comprehensive Electrophysiology Study and Radiofrequency ablation of Atrial Flutter (AF) And Cardioversion with Dr. Babatunde Ordonez. ARRIVAL TIME: Please report to the [facility] admitting office on the ground floor of the [facility] on: 05/28/18 The EP Lab will call to notify you of your arrival time. They will call on the business day prior to your procedure. (If you have any questions regarding your arrival time for the Electrophysiology Lab, please call the EP Lab at [phone].) PRE-PROCEDURE APPOINTMENTS: 05/21 Office visit to update history and physical (requirement within 30 days of procedure) with Dr. Babatunde Ordonez at [facility] Cardiology [facility] 05/21 Pre-Admission lab work: BMP, CBC and Magnesium at the [facility] Cardiology [facility]. SPECIAL MEDICATION INSTRUCTIONS Nothing to eat or drink after midnight before your procedure. Take your prescription medications with a sip of water as instructed. No caffeine for 24 hours prior to your procedure. Any new prescriptions will be sent to your pharmacy listed on file with us. HOLD ALL over the counter vitamins or supplements on the morning of your procedure. Do not take your Insulin: morning dose Hypoglycemics: metformin (Glucophage) -- hold the morning of your procedure. Additional Instructions If you wear CPAP, please bring your mask and machine with you to the hospital. Take a bath or shower with anti-bacterial soap the evening before, or the morning of the procedure. We will give this to you at your office visit. Bring photo ID and your health insurance card(s). Arrange for a cdl b driver to take you home from the hospital. Bring an accurate list of your current medications with you to the hospital ( all meds and supplements taken daily). Wear comfortable clothes and don't bring valuables, other than photo identification card, with you to the hospital. Please pack a bag for an overnight stay. Please review your pre-procedure instructions and call the office at with any questions. You may ask to speak with any of Dr Ordonez's nurses. There are several of us in the office that can assist you. For questions regarding post procedure care or restrictions please refer to the "Your Care Instructions" included in the a Comprehensive Electrophysiology Study and Radiofrequency ablation of Atrial Flutter (AF) Packet (also planning a cardioversion) ALLERGIES Allergies Allergen Reactions Nifedipine SHORTNESS OF BREATH CURRENT MEDICATIONS Montez Mulligan Home Medication Instructions JASON: Printed on:05/21/18 5446 Medication Information apixaban (ELIQUIS) 5 mg tablet Take 5 [...] mg by mouth daily. Take with food. Form completed by: Hailee Greco RN Date completed: 05/21/18 Method: In person and given to the patient. in this encounter Plan of Treatment Not on fileas of this encounter Visit Diagnoses Not on filein this encounter
--- OUTSIDE RECORDS SUMMARY | 2018-05-29 17:13 | XMS REPORT | Encounter Summary ---
Author Author [facility] Organization [facility] Address Unknown Phone Unavailable Care Team Providers Care Bracelet Former Name Role Phone Antonio Hawthorne MD PCP Reason for Visit * Auth/Cert (Routine) Status Reason Specialty Diagnoses / Referred By Referred To Procedures Contact Contact Encounter Details Date Type Department Care Team Description 05/28/2018 Surgery [facility] EP LAB Babatunde Ordonez MD INTRACARDIAC CATHETER [address] [place] [address] [address] COMPREHENSIVE [phone] [place] [address] ELECTROPHYSIOLOGIC [phone] EVALUATION - TYPICAL FLUTTER Social History Tobacco Use Types Packs/Day Years [...] a hematoma after ambulation. Patient escorted to [facility] via [employer]. Patient to follow up with [facility] ([facility]) or on-call physician with any additional questions or concerns. All contact numbers provided. Patient and family acceptant of DC instuctions and report understanding to all information. * Isidoro Gonzalez RN - 05/28/2018 4:52 PM CDT I have reviewed the notes, assessment, and/or procedures performed by Cian Bowman and concur with her documentation unless otherwise noted. * Babatunde Ordonez MD - 05/28/2018 2:47 PM CDT Cardiac Electrophysiology Brief Post-Procedure Note Attending Cotton Ginner Helper: Babatunde Ordonez MD Fellow: NONE Preoperative diagnosis: [...] the line from 0600 o'clock in the SWAZI view across the sub- eustachian isthmus resulted in termination of the AFL abruptly with uatsdin of sinus rhythm however conduction block was not completely established just conduction delay. Further RF ablation through 0600 quickly resulted in a counterclockwise conduction block however clockwise conduction block was still present. Additional RF along the septal edge of the 0600 o'clock line result in bidirectional conduction block. This was monitored. No uatsdin of conduction was noted. Conduction Times: -Baseline [...] removed: None Sheaths: All via the RFV--8.5 American SRO guide sheath used for mapping ablation catheter; 6 American sheath for CS catheter; 7 American sheath for the elena catheter based along [...] --Follow-up with Dr. Anusha Valencia his primary core winder in [facility] in [address] Ordonez [...] Address City/State/Zipcode Phone Number [facility] [address] [place] [address] * BASIC METABOLIC PANEL (05/29/2018 3:50 AM) [...] for questions. eGFR >60 >60 mL/min [facility] Comment: The eGFR is not validated for use in drug dosing adjustments.Continue to use estimated creatinine clearance per dosing reference text.Please contact the Clinical Pharmacist for questions. Specimen Blood Performing Organization Address City/[facility] Phone Number MAIN LAB [address] [place] [address] * CBC (05/29/2018 3:50 AM) White Blood Cells 8.1 4.5 - 11.0 K/UL [facility] RBC 4.71 4.4 - 5.5 M/UL MAIN LAB Hemoglobin 14.0 13.5 - 16.5 GM/DL [facility] Hematocrit 41.8 40 - 50 % [facility] MCV 88.7 80 - 100 FL [facility] MCH 29.7 26 - 34 PG [facility] MCHC 33.5 32.0 - 36.0 G/DL MAIN LAB RDW 14.3 11 - 15 % [facility] Platelet Count 267 150 - 400 K/UL [facility] MPV 7.5 7 - 11 FL MAIN LAB Specimen Blood Performing Organization Address [facility] Phone Number MAIN LAB [address] [place] [address] * POC GLUCOSE (05/28/2018 9:53 PM) Glucose, POC 154 (H) 70 - 100 MG/DL [facility] Performing Organization Address [facility] Phone Number [facility] [address] [place] [phone] * POC GLUCOSE (05/28/2018 3:17 PM) Glucose, POC 107 (H) 70 - 100 MG/DL [facility] Performing Organization Address [facility] Phone Number [facility] [address] [place] [address] * EP DEVICE (05/28/2018 2:46 PM) Impressions [...] placement. --Intracardiac 3-D electroanatomic mapping using the Red Ambiental mapping system. --SVT Ablation. --Moderate sedation. BRIEF SUMMARY: Patient presented in atrial flutter.Atrial flutter mapped through the isthmus with 3D mapping and catheter mapping.Also treatment mapping performed.Having demonstrated an isthmus dependent atrial flutter circuit.RF ablation to be done in the line from 0600 o'clock in the SWAZI view across the sub-eustachian isthmus resulted in termination of the AFL abruptly with uatsdin of sinus rhythm however conduction block was not completely established just conduction delay.Further RF ablation through 0600 quickly resulted in a counterclockwise conduction block however clockwise conduction block was still present.Additional RF along the septal edge of the 0600 o'clock line result in bidirectional conduction block.This was monitored.No uatsdin of conduction was noted. BUZZLE BUFFER:Babatunde Ordonez M.D. ENGINEER EXHAUSTER: NONE INDICATION FOR PROCEDURE: Recurrent AFL PRESENTING [...] trained Registered Nurse who was supervised by in. The patient underwent continuous blood pressure, heart [...] Pole defectable EP catheter inserted via a 7.American sheath in the right femoral vein, advanced to the lateral wall of the right atrium close to the elena teminalis with the distal poles at the low lateral RA and the proximal poles at the high lateral RA. Decapolar deflectable EP catheter inserted via a 6 American sheath in the right femoral vein, advanced to the coronary sinus. Thermacool FSt. Russ flex tipcurve ablation catheter inserted via an 8 American SRO sheath in the right femoral vein, advanced to the right atrium utilized for mapping and ablation..One of these catheters was placed at the AV junction intermittently during the procedure. --Cristae-20 Pole deflectable EP catheter inserted via a 7 American sheath in the right femoral vein, advanced to the lateral wall of the right atrium close to the elena terminalis with the distal poles at the low lateral RA and the proximal poles at the high lateral RA. --Decapolar deflectable EP catheter inserted via a 6Fr American sheath in the right femoral vein, advanced to the coronary sinus. --St. Russ FlexTip irrigated ablation catheter inserted via an 8.5 American SRO sheath in the right femoral vein, advanced to the right atrium utilized for mapping and ablation. Also note, the SRO sheath was exchanged at the end of the procedure for a short 8.5 American sheath. ARRHYTHMIAS: -- Atrial flutter that appeared [...] at the RA-IVC junction.Lines were also created [id number]. Patient presented in atrial flutter.Atrial flutter mapped through the isthmus with 3D mapping and catheter mapping.Also treatment mapping performed.Having demonstrated an isthmus dependent atrial flutter circuit.RF ablation to be done in the line from 0600 o'clock in the SWAZI view across the sub-eustachian isthmus resulted in termination of the AFL abruptly with uatsdin of sinus rhythm however conduction block was not completely established just conduction delay.Further RF ablation through 0600 quickly resulted in a counterclockwise conduction block however clockwise conduction block was still present.Additional RF along the septal edge of the 0600 o'clock line result in bidirectional conduction block.This was monitored.No uatsdin of conduction was noted. Upon completion of [...] the line from 0600 o'clock in the SWAZI view across the sub-eustachian isthmus resulted in termination of the AFL abruptly with uatsdin of sinus rhythm however conduction block was not completely established just conduction delay.Further RF ablation through 0600 quickly resulted in a counterclockwise conduction block however clockwise conduction block was still present.Additional RF along the septal edge of the 0600 o'clock line result in bidirectional conduction block.This was monitored.No uatsdin of conduction was noted. BUZZLE BUFFER:Babatunde Ordonez M.D. ENGINEER EXHAUSTER: NONE INDICATION FOR PROCEDURE: Recurrent AFL PRESENTING [...] Pole defectable EP catheter inserted via a 7.American sheath in the right femoral vein, advanced to the lateral wall of the right atrium close to the elena teminalis with the distal poles at the low lateral RA and the proximal poles at the high lateral RA. Decapolar deflectable EP catheter inserted via a 6 American sheath in the right femoral vein, advanced to the coronary sinus. Thermacool FSt. Russ flex tipcurve ablation catheter inserted via an 8 American SRO sheath in the right femoral vein, advanced to the right atrium utilized for mapping and ablation..One of these catheters was placed at the AV junction intermittently during the procedure. --Cristae-20 Pole deflectable EP catheter inserted via a 7 American sheath in the right femoral vein, advanced to the lateral wall of the right atrium close to the elena terminalis with the distal poles at the low lateral RA and the proximal poles at the high lateral RA. --Decapolar deflectable EP catheter inserted via a 6Fr American sheath in the right femoral vein, advanced to the coronary sinus. --St. Russ FlexTip irrigated ablation catheter inserted via an 8.5 American SRO sheath in the right femoral vein, advanced to the right atrium utilized for mapping and ablation. Also note, the SRO sheath was exchanged at the end of the procedure for a short 8.5 American sheath. ARRHYTHMIAS: -- Atrial flutter that appeared [...] at the RA-IVC junction.Lines were also created [id number]. Patient presented in atrial flutter.Atrial flutter mapped through the isthmus with 3D mapping and catheter mapping.Also treatment mapping performed.Having demonstrated an isthmus dependent atrial flutter circuit.RF ablation to be done in the line from 0600 o'clock in the SWAZI view across the sub-eustachian isthmus resulted in termination of the AFL abruptly with uatsdin of sinus rhythm however conduction block was not completely established just conduction delay.Further RF ablation through 0600 quickly resulted in a counterclockwise conduction block however clockwise conduction block was still present.Additional RF along the septal edge of the 0600 o'clock line result in bidirectional conduction block.This was monitored.No uatsdin of conduction was noted. Upon completion of [...] 100 MG/DL MAIN LAB Performing Organization Address City/State/Zipcode Phone Number MAIN LAB [address] [place] [address] in this encounter Visit Diagnoses Diagnosis Typical atrial flutter (HCC) Atrial flutter Admitting Diagnoses Diagnosis Typical atrial [...]
--- OUTSIDE RECORDS SUMMARY | 2018-05-29 17:13 | XMS REPORT | Encounter Summary ---
Author Author [facility] Organization [facility] Address Unknown Phone Unavailable Care Team Providers Care Account Coordinator Name Role Phone Antonio Hawthorne MD PCP Encounter Details Date Type Department Care Team Description 05/22/2018 Pre-Admit XDD CARDIOLOGY [place], PAVianneyC Orders Only [address] [place] [address] Social History Tobacco Use Types Packs/Day Years Used Date Never Assessed Sex Assigned at Date Recorded Not on file as of this encounter Plan of Treatment Not on fileas of this encounter Visit Diagnoses Not on filein this encounter
--- OUTSIDE RECORDS SUMMARY | 2018-05-29 17:13 | XMS REPORT | Encounter Summary ---
Author Author [facility] Organization [facility] Address Unknown Phone Unavailable Care Team Providers Care Chemistry Intern Name Role Phone Antonio Hawthorne MD PCP Reason for Referral * (Routine) Status Reason Specialty Diagnoses / Referred By Referred To Procedures Contact Contact New Request Procedures Babatunde Ordonez, REQUEST FOR MD CARDIOLOGY [address] [place] [address] Reason for Visit * Reason Comments New Patient referred by Dr. Anusha Valencia Atrial fibrillation possible ablation Encounter Details Date Type Department Care Team Description 05/21/2018 Office Visit [facility] Babatunde Ordonez MD New Patient (referred by [facility] 3rd [address] [address] [address] Anusha Valencia); Atrial fl [address]oni [address] fibrillation (possible [address] [place] [address] ablation) [place], [place] [address] Social History Tobacco Use Types Packs/Day Years Used Date Never Assessed Sex Assigned at Date Recorded Not on file as of this encounter Last Filed Vital Signs Vital Sign Reading Time Taken Blood Pressure 128/100 05/21/2018 10:00 AM CDT Pulse 151 05/21/2018 10:00 AM CDT Temperature - - Respiratory Rate - - Oxygen Saturation - - Inhaled Oxygen - - Concentration Weight 122.7 kg (270 lb 9.6 oz) 05/21/2018 10:00 AM CDT Height 185.4 cm (6' 1") 05/21/2018 10:00 AM CDT Body Mass Index 35.7 05/21/2018 10:00 AM CDT in this encounter Instructions * Patient Instructions - Hailee Greco, RN - 05/21/2018 8:45 AM CDT Increase Lopressor to 50 mg every day Increase diltiazem to 360 mg every day Decrease Diltiazem if you do not tolerate Plan for procedure: Atrial Flutter Ablation and Cardioversion Follow up with Dr Orodnez 3 months see pre procedure instructions In order to provide you the best care possible we ask that you follow up as below: For NON-URGENT questions please contact us through your [employer] account. For all medication refills please contact your pharmacy or send a request through [employer]. For all questions that may need to be addressed urgently please call the nursing triage line at [phone] Sunday - Sunday 8-5 only. Please leave a detailed message with your name, date of , and reason for your call. To schedule an appointment call [phone]. Please allow 10-15 business days for the results of any testing to be reviewed. Please call our office if you have not heard from a nurse within this time frame. in this encounter Plan of Treatment Name Priority Associated Diagnoses Order Schedule CBC Routine Typical atrial flutter Expected: 05/21/2018 (HCC) (Approximate), Expires: Essential hypertension 05/21/2019 Paroxysmal atrial fibrillation (HCC) as of this encounter Procedures Procedure Name Priority Date/Time Associated Diagnosis Comments ECG/QRS Routine 05/21/2018 Results for this 10:12 AM CDT procedure are in the results section. in this encounter Results * BASIC METABOLIC [...] Organization Address City/State/Zipcode Phone Number [facility] [address] [facility], [address] [place] [address] * ECG/QRS (05/21/2018 10:12 AM) QRS DURATION 90 OTHER OUTSIDE LAB Performing Organization Address City/State/Zipcode Phone Number OTHER OUTSIDE LAB in this encounter Visit Diagnoses Diagnosis Typical atrial flutter (HCC) - Primary Atrial flutter Essential hypertension Unspecified essential hypertension Paroxysmal atrial fibrillation (HCC) Atrial fibrillation
--- OUTSIDE RECORDS SUMMARY | 2018-05-29 17:13 | XMS REPORT | Encounter Summary ---
Author Author [facility] Organization [facility] Address Unknown Phone Unavailable Care Team Providers Care Body Presser Name Role Phone Antonio Hawthorne MD PCP Encounter Details Date Type Department Care Team Description 05/21/2018 Orders Only [facility] Babatunde Ordonez MD [place] [address] [place] [address] [place] [address] [place] [address] [phone] Social History Tobacco Use Types Packs/Day Years Used Date Never Assessed Sex Assigned at Date Recorded Not on file as of this encounter Plan of Treatment Not on fileas of this encounter Procedures Procedure Name Priority Date/Time Associated Diagnosis Comments CBC AND DIFF Routine 05/21/2018 Results for this 11:57 AM CDT procedure are in the results section. MAGNESIUM 05/21/2018 Results for this 11:57 AM CDT procedure are in the results section. in this encounter Results * CBC AND DIFF (05/21/2018 11:57 AM) [...] 17.0 % [facility] Performing Organization Address [facility] Phone Number [facility] [address] [address] * MAGNESIUM (05/21/2018 11:57 AM) Magnesium 1.9 1.5 - 2.5 mg/dL [facility] Comment: Test Performed at: [facility] [place] [address] [address] [id number] TIFFANIE NICHOLSON DO,MPH Performing Organization Address [facility] Phone Number [facility] [address] [place] [address] in this encounter Visit Diagnoses Not on filein this encounter
--- OUTSIDE RECORDS SUMMARY | 2018-05-29 17:13 | XMS REPORT | Encounter Summary ---
Author Author [facility] Organization [facility] Address Unknown Phone Unavailable Care Team Providers Care Organic Lab Worker Name Role Phone No Pcp, Na PCP Unavailable Reason for Visit * Reason Comments New Patient Encounter Details Date Type Department Care Team Description 05/17/2018 Patient Profile [facility] Carmina Quintanilla New Patient [facility] [place] [address] Social History Tobacco Use Types Packs/Day Years Used Date Never Assessed Sex Assigned at Date Recorded Not on file as of this encounter Progress Notes * Carmina Quintanilla - 05/17/2018 10:31 AM CDT Unable to reach pt. At the moment there is no phone number available in chart to call patient. 05/17/18 in this encounter Plan of Treatment Not on fileas of this encounter Visit Diagnoses Not on filein this encounter
--- OUTSIDE RECORDS SUMMARY | 2018-05-29 17:14 | XMS REPORT | Continuity of Care Document ---
Author Author [facility] Organization [facility] Address Unknown Phone Unavailable Allergies Active Description Code Type Severity Reaction Onset Reported/Identified Relationship to Patient Clinical Status Yes No Known Drug Allergies [id number] Drug Allergy Unknown N/A 06/24/2012 Medications There [...] CCDS Ot I48.0 08/10/2015 TAINA BROOKE L DRIVEMATIC MACHINE OPERATOR Ot I71.2 08/19/2015 BAIMA, BROOKE L DRIVEMATIC MACHINE OPERATOR Ot I71.2 04/12/2016 ROSE WATKINS APRN Ot [...] PAROXYSMAL ATRIAL FIBRILLATION 09/17/2017 LO HERHER L DRIVEMATIC MACHINE OPERATOR Ot I71.2 THORACIC AORTIC ANEURYSM, WITHOUT RUPTUR [...] PAROXYSMAL ATRIAL FIBRILLATION 09/21/2017 BAIMA, BROOKE L DRIVEMATIC MACHINE OPERATOR Ot I71.2 THORACIC AORTIC ANEURYSM, WITHOUT RUPTUR [...] PAROXYSMAL ATRIAL FIBRILLATION 09/21/2017 BAIMA, BROOKE L DRIVEMATIC MACHINE OPERATOR Ot I71.2 THORACIC AORTIC ANEURYSM, WITHOUT RUPTUR 09/21/2017 ROSE WATKINS APRN Ot R06.00 DYSPNEA, UNSPECIFIED 09/25/2017 TAINA BROOKE L DRIVEMATIC MACHINE OPERATOR Ot I07.1 RHEUMATIC TRICUSPID INSUFFICIENCY 09/25/2017 BAIMA, BROOKE L DRIVEMATIC MACHINE OPERATOR Ot I10 ESSENTIAL (PRIMARY) HYPERTENSION 09/25/2017 BAIMA, BROOKE L DRIVEMATIC MACHINE OPERATOR Ot I34.0 NONRHEUMATIC MITRAL (VALVE) INSUFFICIENC 09/25/2017 BAIMA, BROOKE L DRIVEMATIC MACHINE OPERATOR Ot I35.8 OTHER NONRHEUMATIC AORTIC VALVE DISORDER 09/25/2017 BAIMA, BROOKE L DRIVEMATIC MACHINE OPERATOR Ot I48.92 UNSPECIFIED ATRIAL FLUTTER 09/30/2017 BAIMA, BROOKE L DRIVEMATIC MACHINE OPERATOR Ot I07.1 RHEUMATIC TRICUSPID INSUFFICIENCY 09/30/2017 BAIMA, BROOKE L DRIVEMATIC MACHINE OPERATOR Ot I10 ESSENTIAL (PRIMARY) HYPERTENSION 09/30/2017 BAIMA, BROOKE L DRIVEMATIC MACHINE OPERATOR Ot I34.0 NONRHEUMATIC MITRAL (VALVE) INSUFFICIENC 09/30/2017 BAIMA, BROOKE L DRIVEMATIC MACHINE OPERATOR Ot I35.8 OTHER NONRHEUMATIC AORTIC VALVE DISORDER 09/30/2017 BAIMA, BROOKE L DRIVEMATIC MACHINE OPERATOR Ot I48.92 UNSPECIFIED ATRIAL FLUTTER 10/11/2017 BAIMA, BROOKE L DRIVEMATIC MACHINE OPERATOR Ot I07.1 RHEUMATIC TRICUSPID INSUFFICIENCY 10/11/2017 BAIMA, BROOKE L DRIVEMATIC MACHINE OPERATOR Ot I10 ESSENTIAL (PRIMARY) HYPERTENSION 10/11/2017 BAIMA, BROOKE L DRIVEMATIC MACHINE OPERATOR Ot I34.0 NONRHEUMATIC MITRAL (VALVE) INSUFFICIENC 10/11/2017 BROOKE HER DRIVEMATIC MACHINE OPERATOR Ot I35.8 OTHER NONRHEUMATIC AORTIC VALVE DISORDER 10/11/2017 BROOKE HER DRIVEMATIC MACHINE OPERATOR Ot I48.92 UNSPECIFIED ATRIAL FLUTTER 02/05/2018 BROOKE HER DRIVEMATIC MACHINE OPERATOR Ot I07.1 RHEUMATIC TRICUSPID INSUFFICIENCY 02/05/2018 BROOKE HER DRIVEMATIC MACHINE OPERATOR Ot I10 ESSENTIAL (PRIMARY) HYPERTENSION 02/05/2018 BROOKE HER DRIVEMATIC MACHINE OPERATOR Ot I34.0 NONRHEUMATIC MITRAL (VALVE) INSUFFICIENC 02/05/2018 BROOKE HER DRIVEMATIC MACHINE OPERATOR Ot I35.8 OTHER NONRHEUMATIC AORTIC VALVE DISORDER 02/05/2018 BROOKE HER DRIVEMATIC MACHINE OPERATOR Ot I48.92 UNSPECIFIED ATRIAL FLUTTER 02/05/2018 HEYDI HEAD MD, Ot E11.9 TYPE 2 DIABETES MELLITUS WITHOUT COMPLIC 02/05/2018 HEYDI HEAD MD, Ot G47.30 SLEEP APNEA, UNSPECIFIED 02/05/2018 HEYDI HEAD MD Ot I10 ESSENTIAL (PRIMARY) HYPERTENSION 02/05/2018 HEYDI EHAD MD, Ot I48.0 PAROXYSMAL ATRIAL FIBRILLATION 02/05/2018 HEYDI HEAD MD, Ot I48.92 UNSPECIFIED ATRIAL FLUTTER 02/05/2018 HEYDI HEAD MD Ot R00.2 PALPITATIONS 02/05/2018 HEYDI HEAD MD, Ot Z79.01 RESIDENTIAL (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 OF ANTICOAGULANT 02/05/2018 HEYDI HEAD MD Ot Z79.4 RESIDENTIAL (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 OF INSULIN 02/05/2018 HEYDI HEAD [...] PALPITATIONS 02/07/2018 HEYDI HEAD MD Ot Z79.01 RESIDENTIAL (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 OF ANTICOAGULANT 02/07/2018 HEYDI HEAD MD, Ot Z79.4 CONTAINER SHOP WELDER (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 OF INSULIN 02/07/2018 HEYDI HEAD MD, Ot 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, 02/07/2018 HEYDI HEAD MD Ot Z90.89 ACQUIRED ABSENCE OF OTHER ORGANS 02/07/2018 HEYDI HEAD MD Ot Z98.1 ARTHRODESIS STATUS 02/19/2018 BROOKE HER DRIVEMATIC MACHINE OPERATOR Ot I07.1 RHEUMATIC TRICUSPID INSUFFICIENCY 02/19/2018 BROOKE HER DRIVEMATIC MACHINE OPERATOR Ot I10 ESSENTIAL (PRIMARY) HYPERTENSION 02/19/2018 BROOKE HER DRIVEMATIC MACHINE OPERATOR Ot I34.0 NONRHEUMATIC MITRAL (VALVE) INSUFFICIENC 02/19/2018 BROOKE HER DRIVEMATIC MACHINE OPERATOR Ot I35.8 OTHER NONRHEUMATIC AORTIC VALVE DISORDER 02/19/2018 BROOKE HER DRIVEMATIC MACHINE OPERATOR Ot I48.92 UNSPECIFIED ATRIAL FLUTTER 03/13/2018 BROOKE HER L DRIVEMATIC MACHINE OPERATOR Ot I48.92 UNSPECIFIED ATRIAL FLUTTER 03/13/2018 BROOKE HER DRIVEMATIC MACHINE OPERATOR Ot R00.2 PALPITATIONS 03/14/2018 BROOKE HER DRIVEMATIC MACHINE OPERATOR Ot E11.59 TYPE 2 DIABETES MELLITUS WITH OTH CIRCUL 03/14/2018 BROOKE HER L DRIVEMATIC MACHINE OPERATOR Ot I10 ESSENTIAL (PRIMARY) HYPERTENSION 03/14/2018 BROOKE HER DRIVEMATIC MACHINE OPERATOR Ot I48.0 PAROXYSMAL ATRIAL FIBRILLATION 03/14/2018 BROOKE HER DRIVEMATIC MACHINE OPERATOR Ot I71.2 THORACIC AORTIC ANEURYSM, WITHOUT RUPTUR [...] DONOHUE FACC, ALI FACP CCDS Ot Z79.01 RESIDENTIAL (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 OF ANTICOAGULANT 03/19/2018 YOLY DONOHUE FACC, ALI FACP CCDS Ot Z79.4 CONTAINER SHOP WELDER (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 OF INSULIN 03/19/2018 YOLY DONOHUE FACC, ALI FACP CCDS Ot Z79.899 OTHER CONTAINER SHOP WELDER (CURRENT) DRUG THERAPY 03/20/2018 YOLY DOONHUE FACC, ALI FACP CCDS Ot E11.9 TYPE [...] I71.4 ABDOMINAL AORTIC ANEURYSM, WITHOUT RUPTU 03/20/2018 JOSE FREDERICK MD, FACC FACP CCDS Ot Z68.36 BODY MASS INDEX (BMI) 36.0-36.9, ADULT 03/20/2018 JOSE FREDERICK MD, FACC FACP CCDS Ot Z79.01 RESIDENTIAL (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 OF ANTICOAGULANT 03/20/2018 JOSE FREDERICK MD, FACC FACP CCDS Ot Z79.4 RESIDENTIAL (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 OF INSULIN 03/20/2018 JOSE FREDERICK MD, FACC FACP CCDS Ot Z79.899 OTHER RESIDENTIAL (CURRENT) DRUG THERAPY 05/02/2018 JOHNATHON NEVILLE FOOD CRITIC Ot M79.662 PAIN IN LEFT LOWER LEG 05/02/2018 JOHNATHON NEVILLE FOOD CRITIC Ot M79.89 OTHER SPECIFIED SOFT TISSUE DISORDERS 05/02/2018 JOHNATHON NEVILLE FOOD CRITIC Ot Z86.79 PERSONAL HISTORY OF OTHER DISEASES OF TH 05/09/2018 JSOE FREDERICK MD, FACC FACP CCDS Ot E11.9 TYPE 2 DIABETES MELLITUS WITHOUT COMPLIC 05/09/2018 JOSE FREDERICK MD, FACC FACP CCDS Ot E66.9 OBESITY, UNSPECIFIED 05/09/2018 JOSE FREDERICK MD, FACC FACP CCDS Ot F41.9 ANXIETY DISORDER, UNSPECIFIED 05/09/2018 JOSE FREDERICK MD, FACC FACP CCDS Ot G47.33 OBSTRUCTIVE SLEEP APNEA (ADULT) (PEDIATR 05/09/2018 JOSE FREDERICK MD, FACC FACP CCDS Ot I10 ESSENTIAL (PRIMARY) HYPERTENSION 05/09/2018 JOSE FREDERICK MD, FACC FACP CCDS Ot I48.0 PAROXYSMAL ATRIAL FIBRILLATION 05/09/2018 YOLY DONOHUE FACC ALI FACP CCDS Ot I71.2 THORACIC AORTIC ANEURYSM, WITHOUT RUPTUR 05/09/2018 JOSE FREDERICK MD, FACC FACP CCDS Ot R06.09 OTHER FORMS OF DYSPNEA 05/09/2018 JOSE FREDERICK MD, FACC FACP CCDS Ot R60.0 LOCALIZED EDEMA 05/09/2018 YOLY DONOHUE FACC ALI FACP CCDS Ot Z68.36 BODY MASS INDEX (BMI) 36.0-36.9, ADULT 05/09/2018 JOSE FREDERICK MD, FACC FACP CCDS Ot Z79.899 OTHER CONTAINER SHOP WELDER (CURRENT) DRUG THERAPY 05/13/2018 YOLY MD FACC, ALI FACP CCDS Ot E11.9 TYPE 2 DIABETES MELLITUS WITHOUT COMPLIC 05/13/2018 YOLY BEARDC, ALI FACP CCDS Ot E66.9 OBESITY, UNSPECIFIED 05/13/2018 YOLY BEARDC, ALI FACP CCDS Ot F41.9 ANXIETY DISORDER, UNSPECIFIED 05/13/2018 YOLY DONOHUE FACC, ALI FACP CCDS Ot G47.33 OBSTRUCTIVE SLEEP APNEA (ADULT) (PEDIATR 05/13/2018 YOLY BEARDC, ALI FACP CCDS Ot I10 ESSENTIAL (PRIMARY) HYPERTENSION 05/13/2018 YOLY BEARDC, ALI FACP CCDS Ot I48.0 PAROXYSMAL ATRIAL FIBRILLATION 05/13/2018 YOLY DONOHUE FACC, ALI FACP CCDS Ot I71.2 THORACIC AORTIC ANEURYSM, WITHOUT RUPTUR 05/13/2018 YOLY BEARDC, ALI FACP CCDS Ot R06.09 OTHER FORMS OF DYSPNEA 05/13/2018 YOLY DONOHUE FACC, ALI FACP CCDS Ot R60.0 LOCALIZED EDEMA 05/13/2018 YOLY DONOHUE FACC, ALI FACP CCDS Ot Z68.36 BODY MASS INDEX (BMI) 36.0-36.9, ADULT 05/13/2018 YOLY BEARDC, ALI FACP CCDS Ot Z79.899 OTHER RESIDENTIAL (CURRENT) DRUG THERAPY 05/14/2018 YOLY DONOHUE FACC, ALI FACP CCDS Ot E11.9 TYPE 2 DIABETES MELLITUS WITHOUT COMPLIC 05/14/2018 YOLY DONOHUE FACC, ALI FACP CCDS Ot E66.9 OBESITY, UNSPECIFIED 05/14/2018 YOLY DONOHUE FACC, ALI FACP CCDS Ot F41.9 ANXIETY DISORDER, UNSPECIFIED 05/14/2018 YOLY DONOHUE FACC, ALI FACP CCDS Ot G47.33 OBSTRUCTIVE SLEEP APNEA (ADULT) (PEDIATR 05/14/2018 YOLY BEARDC, ALI FACP CCDS Ot I10 ESSENTIAL (PRIMARY) HYPERTENSION 05/14/2018 YOLY DONOHUE FACC, ALI FACP CCDS Ot I48.92 UNSPECIFIED ATRIAL FLUTTER 05/14/2018 YOLY BEARDC, ALI FACP CCDS Ot R06.09 OTHER FORMS OF DYSPNEA 05/14/2018 YOLY BEARDC, ALI FACP CCDS Ot R60.0 LOCALIZED EDEMA 05/14/2018 YOLY DONOHUE FACC, JOSE FACP CCDS Ot Z68.38 BODY MASS INDEX (BMI) 38.0-38.9, ADULT 05/14/2018 YOLY DONOHUE FACC, ALI FACP CCDS Ot Z79.01 RESIDENTIAL (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 OF ANTICOAGULANT 05/14/2018 YOLY DONOHUE FACC, ALI FACP CCDS Ot Z79.4 RESIDENTIAL (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 OF INSULIN 05/15/2018 JOHNATHON NEVILLE FOOD CRITIC Ot M79.662 PAIN IN LEFT LOWER LEG 05/15/2018 JOHNATHON NEVILLE FOOD CRITIC Ot M79.89 OTHER SPECIFIED SOFT TISSUE DISORDERS 05/15/2018 JOHNATHON NEVILLE FOOD CRITIC Ot Z86.79 PERSONAL HISTORY OF OTHER DISEASES OF TH 05/20/2018 YOLY DONOHUE FACC, JOSE FACP CCDS Ot E11.9 TYPE 2 DIABETES MELLITUS WITHOUT COMPLIC 05/20/2018 YOLY DONOHUE FACC, ALI FACP CCDS Ot E66.9 OBESITY, UNSPECIFIED 05/20/2018 YOLY DONOHUE FACC, JOSE FACP CCDS Ot F41.9 ANXIETY DISORDER, UNSPECIFIED 05/20/2018 YOLY DONOHUE FACC, ALI FACP CCDS Ot G47.33 OBSTRUCTIVE SLEEP APNEA (ADULT) (PEDIATR 05/20/2018 YOLY DONOHUE FACC, ALI FACP CCDS Ot I10 ESSENTIAL (PRIMARY) HYPERTENSION 05/20/2018 YOLY DONOHUE FACC, ALI FACP CCDS Ot I48.92 UNSPECIFIED ATRIAL FLUTTER 05/20/2018 YOLY DONOHUE FACC, ALI FACP CCDS Ot R06.09 OTHER FORMS OF DYSPNEA 05/20/2018 YOLY DONOHUE FACC, ALI FACP CCDS Ot R60.0 LOCALIZED EDEMA 05/20/2018 YOLY DONOHUE FACC, ALI FACP CCDS Ot Z68.38 BODY MASS INDEX (BMI) 38.0-38.9, ADULT 05/20/2018 YOLY DONOHUE FACC, ALI FACP CCDS Ot Z79.01 CONTAINER SHOP WELDER (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 OF ANTICOAGULANT 05/20/2018 YOLY DONOHUE FACC, ALI FACP CCDS Ot Z79.4 RESIDENTIAL (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 OF INSULIN Procedures There is no data. Results Test [...] resistant Staphylococcus aureus (MRSA) screening culture NEG [facility] Automated blood complete blood count (hemogram) panel - 05/07/18 10:35 Blood leukocytes automated count (number/volume) 11.1 10*3/uL 4.3-11.0 Blood erythrocytes automated count (number/volume) 5.32 10*6/uL 4.35-5.85 Venous blood hemoglobin measurement (mass/volume) 15.9 g/dL 13.3-17.7 Blood hematocrit (volume fraction) 46 % 40-54 Automated erythrocyte mean corpuscular volume 87 [foz_us] 80-99 Automated erythrocyte mean corpuscular hemoglobin (mass per erythrocyte) 30 pg 25-34 Automated erythrocyte mean corpuscular hemoglobin concentration measurement ( mass/volume) 35 g/dL 32-36 Automated erythrocyte distribution width ratio 13.7 % 10.0-14.5 Automated blood platelet count (count/volume) 347 10*3/uL 130-400 Automated blood platelet mean volume measurement 9.2 [foz_us] 7.4-10.4 PT panel in platelet poor plasma by coagulation assay - 05/07/18 10:35 Prothrombin time (PT) in platelet poor plasma by coagulation assay 14.0 s 12.2-14.7 INR in platelet poor plasma or blood by coagulation assay 1.1 0.8-1.4 Activated partial thromboplastin time (aPTT) in platelet poor plasma bycoagulation assay - 05/07/18 10:35 Activated partial thromboplastin time (aPTT) in platelet poor plasma bycoagulation assay 37 s 24-35 Comprehensive metabolic panel - 05/07/18 10:35 Serum or plasma sodium measurement (moles/volume) 138 mmol/L 135-145 Serum or plasma potassium measurement (moles/volume) 4.3 mmol/L 3.6-5.0 Serum or plasma chloride measurement (moles/volume) 101 mmol/L 98-107 Carbon dioxide 27 mmol/L 21-32 Serum or plasma anion gap determination (moles/volume) 10 mmol/L 5-14 Serum or plasma urea nitrogen measurement (mass/volume) 20 mg/dL 7-18 Serum or plasma creatinine measurement (mass/volume) 1.13 mg/dL 0.60-1.30 Serum or plasma urea nitrogen/creatinine mass ratio 18 NRG Serum or plasma creatinine measurement with calculation of estimated glomerular filtration rate > NRG Serum or plasma glucose measurement (mass/volume) 202 mg/dL 70-105 Serum or plasma calcium measurement (mass/volume) 9.1 mg/dL 8.5-10.1 Serum or plasma total bilirubin measurement (mass/volume) 0.7 mg/dL 0.1-1.0 Serum or plasma alkaline phosphatase measurement (enzymatic activity/volume) 103 U/L 40-136 Serum or plasma aspartate aminotransferase measurement (enzymatic activity/ volume) 24 U/L 5-34 Serum or plasma alanine aminotransferase measurement (enzymatic activity/volume ) 52 U/L 0-55 Serum or plasma protein measurement (mass/volume) 6.2 g/dL 6.4-8.2 Serum or plasma albumin measurement (mass/volume) 4.1 g/dL 3.2-4.5 CALCIUM CORRECTED 9.0 mg/dL 8.5-10.1 Lipid 1996 panel - 05/07/18 10:35 Serum or plasma triglyceride measurement (mass/volume) 80 mg/dL <150 Serum or plasma cholesterol measurement (mass/volume) 180 mg/dL < 200 Serum or plasma cholesterol in HDL measurement (mass/volume) 44 mg/ dL 40-60 Cholesterol in LDL [mass/volume] in serum or plasma by direct assay 128 mg/dL 1-129 Serum or plasma cholesterol in VLDL measurement (mass/volume) 16 mg/ dL 5-40 Methicillin resistant Staphylococcus aureus (MRSA) screening culture - 10:35 Methicillin resistant Staphylococcus aureus (MRSA) screening culture NEG NRG Methicillin resistant Staphylococcus aureus (MRSA) screening culture - 07:08 Methicillin resistant Staphylococcus aureus (MRSA) screening culture NEG NRG PT panel in platelet poor plasma by coagulation assay - 05/14/18 07:08 Prothrombin time (PT) in platelet poor plasma by coagulation assay 13.4 s 12.2-14.7 INR in platelet poor plasma or blood by coagulation assay 1.0 0.8-1.4 Activated partial thromboplastin time (aPTT) in platelet poor plasma bycoagulation assay - 05/14/18 07:08 Activated partial thromboplastin time (aPTT) in platelet poor plasma bycoagulation assay 37 s 24-35 Automated blood complete blood count (hemogram) panel - 05/14/18 07:08 Blood leukocytes automated count (number/volume) 9.1 10*3/uL 4.3-11.0 Blood erythrocytes automated count (number/volume) 5.51 10*6/uL 4.35-5.85 Venous blood hemoglobin measurement (mass/volume) 16.6 g/dL 13.3-17.7 Blood hematocrit (volume fraction) 48 % 40-54 Automated erythrocyte mean corpuscular volume 87 [foz_us] 80-99 Automated erythrocyte mean corpuscular hemoglobin (mass per erythrocyte) 30 pg 25-34 Automated erythrocyte mean corpuscular hemoglobin concentration measurement ( mass/volume) 35 g/dL 32-36 Automated erythrocyte distribution width ratio 13.9 % 10.0-14.5 Automated blood platelet count (count/volume) 324 10*3/uL 130-400 Automated blood platelet mean volume measurement 9.3 [foz_us] 7.4-10.4 Comprehensive metabolic panel - 05/14/18 07:08 Serum or plasma sodium measurement (moles/volume) 140 mmol/L 135-145 Serum or plasma potassium measurement (moles/volume) 4.2 mmol/L 3.6-5.0 Serum or plasma chloride measurement (moles/volume) 104 mmol/L 98-107 Carbon dioxide 25 mmol/L 21-32 Serum or plasma anion gap determination (moles/volume) 11 mmol/L 5-14 Serum or plasma urea nitrogen measurement (mass/volume) 27 mg/dL 7-18 Serum or plasma creatinine measurement (mass/volume) 1.13 mg/dL 0.60-1.30 Serum or plasma urea nitrogen/creatinine mass ratio 24 NRG Serum or plasma creatinine measurement with calculation of estimated glomerular filtration rate > NRG Serum or plasma glucose measurement (mass/volume) 161 mg/dL 70-105 Serum or plasma calcium measurement (mass/volume) 9.1 mg/dL 8.5-10.1 Serum or plasma total bilirubin measurement (mass/volume) 0.4 mg/dL 0.1-1.0 Serum or plasma alkaline phosphatase measurement (enzymatic activity/volume) 91 U/L 40-136 Serum or plasma aspartate aminotransferase measurement (enzymatic activity/ volume) 17 U/L 5-34 Serum or plasma alanine aminotransferase measurement (enzymatic activity/volume ) 28 U/L 0-55 Serum or plasma protein measurement (mass/volume) 6.0 g/dL 6.4-8.2 Serum or plasma albumin measurement (mass/volume) 4.0 g/dL 3.2-4.5 CALCIUM CORRECTED 9.1 mg/dL 8.5-10.1 Lipid 1996 panel - 05/14/18 07:08 Serum or plasma triglyceride measurement (mass/volume) 87 mg/dL <150 Serum or plasma cholesterol measurement (mass/volume) 194 mg/dL < 200 Serum or plasma cholesterol in HDL measurement (mass/volume) 42 mg/ dL 40-60 Cholesterol in LDL [mass/volume] in serum or plasma by direct assay 136 mg/dL 1-129 Serum or plasma cholesterol in VLDL measurement (mass/volume) 17 mg/ dL 5-40 Encounters ACCT No. Visit Date/Time Discharge Status Pt. Type Provider Facility Loc./Unit Complaint [id number] 05/14/2018 06:51:00 05/14/2018 13:40:00 DIS Outpatient JOSE FREDERICK MD, FACC, FACP CCDS [facility] CATH SOB,A FLUTTER ,HTN,DM,FATIGUE,ANGINA [id number] 05/07/2018 09:41:00 05/07/2018 15:15:00 DIS Outpatient JOSE FREDERICK MD, FACC, FACP CCDS [facility] CATH AFIB [id number] 05/01/2018 09:15:00 05/01/2018 23:59:59 CLS Outpatient JOHNATHON NEVILLE APRN [facility] CARD I49.9 IRREGULAR HEART BEAT [id number] 03/19/2018 09:02:00 03/19/2018 14:00:00 DIS Outpatient YOLY DONOHUE FACC, JOSE VILLALPANDO CCDS [facility] CATH ATRIAL FLUTTER,HTN [id number] 03/12/2018 07:33:00 03/12/2018 23:59:59 CLS Outpatient BAIMA, BROOKE L DRIVEMATIC MACHINE OPERATOR [facility] CARD PALPITATIONS, PAROXYSMAL ATRIAL FLUTTER [id number] 02/21/2018 14:51:00 02/21/2018 23:59:59 CLS Outpatient BAIMA, BROOKE L DRIVEMATIC MACHINE OPERATOR [facility] CARD AFIB,HTN, ASCENDING AORTIC ANEURYSM [id number] 02/05/2018 08:24:00 02/05/2018 10:44:00 DIS Emergency SONIDO DONOHUE, HEYDI Mcclellan [facility] ER FLUTTERING IN CHEST [id number] 09/24/2017 11:46:00 09/24/2017 23:59:59 CLS Outpatient BAIDARIELA, BROOKE L DRIVEMATIC MACHINE OPERATOR [facility] CARD I48.92 PAROXYSMAL ATRIAL FLUTTER [id number] 04/10/2016 15:17:00 04/10/2016 23:59:59 CLS Outpatient ROSE WATKINS APRN [facility] RT DYSPNEA [id number] 07/27/2015 14:14:00 07/27/2015 23:59:59 CLS Outpatient JOHNSONDARIELA, BROOKE L DRIVEMATIC MACHINE OPERATOR [facility] RAD ANEURYSM OF THE AORTA [id number] 07/13/2015 08:31:00 07/13/2015 23:59:59 CLS Outpatient YOLY DONOHUE FACC, JOSE VILLALPANDO CCDS [facility] CARD AFIB [id number] 05/01/2015 19:30:00 05/03/2015 19:38:00 DIS Inpatient SULAIMAN CARRINGTON MD [facility] ICU A-FLUTTER,RVR,CHEST PAIN [id number] 06/24/2012 09:04:00 Document Registration [id number] 06/21/2012 08:23:00 Document Registration [id number] 10/26/2010 11:05:00 Document Registration
[2018-05-29] MEDS: NITROGLYCERIN 0.4 MG SL TABS BTL 25'S SL PRN ×2 (17:15→17:25)
[2018-05-29] MEDS ORDERED: ASPIRIN 81 MG CHEW (CHILDREN'S ASA) PO ONE (17:15)
[2018-05-29 17:25] LABS: BASOPHILS % (AUTO) 0 % (0-10); EOSINOPHILS # (AUTO) 0.3 10^3/uL (0.0-0.3); EOSINOPHILS % (AUTO) 2 % (0-10); HEMATOCRIT 45 % (40-54); LYMPHOCYTES # (AUTO) 2.3 X 10^3 (1.0-4.0); LYMPHOCYTES % (AUTO) 19 % (12-44); MEAN CORPUSCULAR HEMOGLOBIN 31 PG (25-34); MEAN CORPUSCULAR HGB CONC 35 G/DL (32-36); MEAN CORPUSCULAR VOLUME 87 FL (80-99); MEAN PLATELET VOLUME 9.3 FL (7.4-10.4); MONOCYTES # (AUTO) 1.1 X 10^3 (0.0-1.0); MONOCYTES % (AUTO) 9 % (0-12); NEUTROPHILS # (AUTO) 8.7 X 10^3 (1.8-7.8); NEUTROPHILS % (AUTO) 70 % (42-75); PLATELET COUNT 306 10^3/uL (130-400); RED BLOOD COUNT 5.18 10^6/uL (4.35-5.85); RED CELL DISTRIBUTION WIDTH 13.6 % (10.0-14.5); WHITE BLOOD COUNT 12.4 10^3/uL (4.3-11.0)
--- NOTE | 2018-05-29 17:27 | Diagnostic Imaging Report ---
INDICATION: Chest pain. TIME OF EXAM: 5:16 PM COMPARISON: Correlation is made with prior study from 02/05/2018. FINDINGS: Heart size is stable. The lungs are clear. No infiltrate or failure is seen. No effusion or pneumothorax is identified. There are postop changes in lower cervical spine. IMPRESSION: No acute cardiopulmonary process is identified. Dictated by: Dictated on workstation # [id number]
[2018-05-29 17:30] VITALS: BP 138/89
[2018-05-29] MEDS: morphine INJ 10 MG/ML 1ML (SYR OR VIAL) IVP ONE ×4 (17:30→17:50)
[2018-05-29 17:33] VITALS: BP 129/91
--- NOTE | 2018-05-29 17:35 | ED Chest Pain ---
General Chief Complaint: Chest Pain Stated Complaint: CP Nursing Triage Note: PT STATES HE HAD AN ABLATION PROCEDURE AT 12:00 FOR A FLUTTER. TODAY IS PRESENTING WITH SOB, MIDSTERNAL CHEST PAIN AND DIFFICULTY TAKING A DEEP BREATH. Nursing Sepsis Screen: No Definite Risk Source: patient, family Exam Limitations: no limitations (GRACE LIANG) History of Present Illness Date Seen by Provider: May 29, 2018 Time Seen by Provider: 17:24 Initial Comments The patient presents to the ER with his by private conveyance with chief complaint he is having crushing sharp pain gets more painful on deep inspiration and taking his breath away that started early this morning when he is being discharged from his right heart atrial ablation as a dull ache and has progressively gotten worse all day. He rates it as a 10 out of 10 right now. He says he had the ablation because he had to be shocked twice now in the past few weeks for his atrial fibrillation. He was done by Dr. Grant, cardiology, [facility]. He had a heart catheter by Dr. Bowman 2 weeks ago that was cleaned. He has not taken anything for it. He does have Eliquis on board and takes aspirin. The patient states he's had annual CT angiograms to evaluate his ascending and aortic sinus dilatation by Dr. Sanchez in [place]. The last one was August 2017 and he was told there was no change from prior CTs. (GRACE LIANG) Allergies and Home Medications Allergies Coded Allergies: No Known Drug Allergies (Unverified , 06/24/12) Home Medications Alprazolam 0.5 Mg Tablet, 0.5 MG PO TID PRN for ANXIETY, (Reported) Apixaban 5 Mg Tablet, 5 MG PO BID, (Reported) Diltiazem HCl 180 Mg Cap.er.24h, 180 MG PO DAILY, (Reported) Escitalopram Oxalate 10 Mg Tablet, 10 MG PO HS, (Reported) Metoprolol Succinate 25 Mg Tab.er.24h, 25 MG PO DAILY, (Reported) Niacin (Inositol Niacinate) 500 Mg Capsule, 1,000 MG PO DAILY, (Reported) TAKES 2 (500MG) CAPSULES Patient Home Medication List Home Medication List Reviewed: Yes (GRACE LIANG) Review of Systems Review of Systems Constitutional: No chills, No diaphoresis EENTM: No Blurred Vision, No Double Vision Respiratory: Denies Cough, Denies Orthopnea Cardiovascular: See HPI, Chest Pain, Edema; Denies Irregular Heart Rate, Denies Syncope Gastrointestinal: Denies Abdomen Distended, Denies Abdominal Pain Genitourinary: Denies Burning, Denies Discharge Musculoskeletal: No back pain, No joint pain Skin: No pruritus, No rash Psychiatric/Neurological: Denies Headache, Denies Numbness, Denies Paresthesia (GRACE LIANG) Past Wmqgmnu-Ulvxet-Rwsmbx Hx Patient Social History Alcohol Use: Denies Use Recreational Drug Use: No Smoking Status: Never a Smoker Recent Foreign Travel: No Contact w/Someone Who Travel: No Recent Infectious Disease Expo: No (GRACE LIANG) Immunizations Up To Date Date of Pneumonia Vaccine: Mar 19, 2015 (GRACE LIANG) Seasonal Allergies Seasonal Allergies: No (GRACE LIANG) Past Medical History Surgeries: Yes (NECK C4-5, CARDIOVERSION X 2. HEART CATH. ABLATION) Orthopedic Respiratory: Yes (C-PAP) Sleep Apnea Currently Using CPAP: Yes Cardiac: Yes Atrial Fibrillation, Hypertension Neurological: No Reproductive Disorders: No Genitourinary: No Gastrointestinal: No Musculoskeletal: No Endocrine: Yes Diabetes, Insulin dep Are Your Blood Sugars Over 250: No HEENT: No Cancer: No Psychosocial: No Integumentary: No Blood Disorders: No (GRACE LIANG) Family Medical History Diabetes mellitus 19 MOTHER Lip cancer 19 FATHER Parkinson's disease 19 FATHER Diabetes (GRACE LIANG) Physical Exam Vital Signs Vital Signs - First Documented 05/29/18 17:07 Temp 99.9 Pulse 77 Resp 20 B/P (MAP) 161/89 (113) Pulse Ox 96 O2 Delivery Nasal Cannula O2 Flow Rate 4.00 (SWATHI MANZANO MD) Vital Signs Capillary Refill : Less Than 3 Seconds (GRACE LIANG) Height, Weight, BMI Height: 6'1.00" Weight: 270lbs. 0.0oz. 122.965988ud; 36.3 BMI Method:Stated General Appearance: WD/WN, Anxious, Moderate Distress HEENT: PERRL/EOMI, Normal ENT Inspection, Pharynx Normal, Moist Mucous Membranes Neck: Full Range of Motion, Normal Inspection, Supple Respiratory: Chest Non Tender, Lungs Clear, Normal Breath Sounds, No Accessory Muscle Use, Respiratory Distress (mild with shallow breathing) Cardiovascular: Regular Rate, Rhythm, No Murmur, Normal Peripheral Pulses, Other (1+ bilateral lower extremity pitting edema) Gastrointestinal: Normal Bowel Sounds, Non Tender, Soft Extremity: Normal Capillary Refill, Non Tender, No Calf Tenderness, Pedal Edema (bilateral 1+ lower extremity pitting edema) Neurologic/Psychiatric: Alert, Oriented x3, No Motor/Sensory Deficits Skin: Normal Color, Warm/Dry (AZUL,GRACE J) Progress/Results/Core Measures Results/Orders Lab Results Laboratory Tests Test 05/29/18 17:15 05/29/18 17:45 Range/Units White Blood Count 12.4 H 4.3-11.0 10^3/uL Red Blood Count 5.18 4.35-5.85 10^6/uL Hemoglobin 16.0 13.3-17.7 G/DL Hematocrit 45 40-54 % Mean Corpuscular Volume 87 80-99 FL Mean Corpuscular Hemoglobin 31 25-34 PG Mean Corpuscular Hemoglobin Concent 35 32-36 G/DL Red Cell Distribution Width 13.6 10.0-14.5 % Platelet Count 306 130-400 10^3/uL Mean Platelet Volume 9.3 7.4-10.4 FL Neutrophils (%) (Auto) 70 42-75 % Lymphocytes (%) (Auto) 19 12-44 % Monocytes (%) (Auto) 9 0-12 % Eosinophils (%) (Auto) 2 0-10 % Basophils (%) (Auto) 0 0-10 % Neutrophils # (Auto) 8.7 H 1.8-7.8 X 10^3 Lymphocytes # (Auto) 2.3 1.0-4.0 X 10^3 Monocytes # (Auto) 1.1 H 0.0-1.0 X 10^3 Eosinophils # (Auto) 0.3 0.0-0.3 10^3/uL Basophils # (Auto) 0.0 0.0-0.1 10^3/uL Prothrombin Time 13.1 12.2-14.7 SEC INR Comment 1.0 0.8-1.4 Activated Partial Thromboplast Time 33 24-35 SEC Sodium Level 137 135-145 MMOL/L Potassium Level 4.1 3.6-5.0 MMOL/L Chloride Level 101 98-107 MMOL/L Carbon Dioxide Level 28 21-32 MMOL/L Anion Gap 8 5-14 MMOL/L Blood Urea Nitrogen 25 H 7-18 MG/DL Creatinine 1.25 0.60-1.30 MG/DL Estimat Glomerular Filtration Rate 59 BUN/Creatinine Ratio 20 Glucose Level 193 H 70-105 MG/DL Calcium Level 9.2 8.5-10.1 MG/DL Corrected Calcium 9.0 8.5-10.1 MG/DL Magnesium Level 2.2 1.8-2.4 MG/DL Total Bilirubin 0.5 0.1-1.0 MG/DL Aspartate Amino Transf (AST/SGOT) 33 5-34 U/L Alanine Aminotransferase (ALT/SGPT) 34 0-55 U/L Alkaline Phosphatase 112 40-136 U/L Myoglobin 65.3 10.0-92.0 NG/ML Troponin I 0.32 *H <0.30 NG/ML B-Type Natriuretic Peptide 23.8 <100.0 PG/ML Total Protein 6.7 6.4-8.2 GM/DL Albumin 4.3 3.2-4.5 GM/DL D-Dimer 0.30 0.00-0.49 UG/ML (SWATHI MANZANO MD) Medications Given in ED Current Medications Medications Dose Ordered Sig/Grant Route Start Time Stop Time Status Last Admin Dose Admin Aspirin 81 mg STK-MED ONCE .ROUTE 05/29/18 17:10 05/29/18 17:14 DC 05/29/18 17:14 81 MG Ketorolac Tromethamine 30 mg STK-MED ONCE .ROUTE 05/29/18 18:17 05/29/18 18:22 DC 05/29/18 18:24 10 MG Morphine Sulfate 4 mg ONCE ONCE IVP 05/29/18 17:30 05/29/18 17:31 DC 05/29/18 17:35 4 MG Morphine Sulfate 4 mg ONCE ONCE IVP 05/29/18 17:45 05/29/18 17:46 DC 05/29/18 17:50 4 MG Nitroglycerin 0.4 mg UD PRN SL 05/29/18 17:15 05/29/18 17:25 0.4 MG (SWATHI MANZANO MD) Vital Signs/I&O 05/29/18 05/29/18 05/29/18 05/29/18 17:07 17:08 17:10 17:30 Temp 99.9 Pulse 77 75 Resp 20 B/P (MAP) 161/89 (113) 138/89 (105) Pulse Ox 96 96 O2 Delivery Nasal Cannula Nasal Cannula O2 Flow Rate 4.00 4.0 4.00 05/29/18 05/29/18 05/29/18 17:33 17:36 17:38 Pulse 80 79 81 B/P (MAP) 129/91 (104) 135/90 (105) 128/86 (100) (SWATHI MANZANO MD) Blood Pressure Mean: 113 Progress Progress Note : Time: 17:33 Progress Note Patient has a minimally active coronary artery disease on his hernia catheterization by Dr. Valencia couple weeks ago. He has an CT angiography of the chest note being an ascending aortic aneurysm measuring 4.3 cm in the mid ascending aorta and 5 cm of the aorta sinus level on July 2015. We have called our on-call shuttle hand and he recommends touching bases with the cardiology team who did his ablation as well. He thought that it's possible we should think about an atrial esophageal fistula. Were going to get blood pressures on all 4 extremities and look for evidence of a AAA dissection. I do not think this is coronary related given his recent clean catheterization so we gave him 4 mg of morphine to start. He did get a single nitroglycerin and it only made marginal improvement. 1744: The patient's blood pressure initially was around 170 but after sitting down is come down to around 1:30. Measured on all 4 extremities is within 10 mmHg of each other on the systolic side. Since he's stable at this time I would like to reimage his chest abdomen pelvis angiography looking at the aorta to see if there is any reason this could be the source of his pain. It is concerning about the slightly widened, prominent appearance of his mediastinum seen on today's chest x-ray versus previous x-ray. The patient's pain came down to a 6 out of 10 with the 4 mg of morphine so were going to do another for since he is still wanting more pain relief. (GRACE LIANG) Progress Note : Progress Note 1944: I have reviewed the CT scan. Patient's pain is now much improved. Dr. Elkins has seen the patient in the ER. All labs were reviewed. I did discuss the case with Dr. Cuevas and she accepts patient for admission, observation status. We will continue morphine and ketorolac as this seems to be working well. We will continue patient's Levemir at 48 units subcutaneous every afternoon and insulin sliding scale. All of this was discussed with patient and family who agree. We will get echocardiogram in the morning. Admit, observation status. Patient and family agree with plan. (SWATHI MANZANO MD) Initial ECG Impression Date: May 29, 2018 Initial ECG Impression Time: 17:09 Initial ECG Rate: 75 Initial ECG Rhythm: Normal Sinus Initial ECG Intervals: Normal Initial ECG Impression: Normal Initial ECG Comparisson: Unchanged Comment No ST elevation or evidence of pericarditis/cardiac tamponade. (GRACE LIANG) Diagnostic Imaging Diagonstic Imaging: Xray Plain Films/CT/US/NM/MRI: chest Comments There is a mildly more prominent mediastinum seen today than previous chest x- rays. [facility] [place], [place] NAME: GARRETT TH[facility]ER [facility] REC#: [id number] PT STATUS: REG ER : 1960 PHYSICIAN: GRACE LIANG MD ADMIT DATE: 05/29/18/ER Draft Date of Exam:05/29/18 CHEST 1 VIEW, AP/PA ONLY INDICATION: Chest pain. TIME OF EXAM: 5:16 PM COMPARISON: Correlation is made with prior study from 02/05/2018. FINDINGS: Heart size is stable. The lungs are clear. No infiltrate or failure is seen. No effusion or pneumothorax is identified. There are postop changes in lower cervical spine. IMPRESSION: No acute cardiopulmonary process is identified. Dictated on workstation # [id number] Dict: 05/29/18 1725 Trans: 05/29/18 1726 [id number] Interpreted by: HANDY BLANCAS MD Electronically signed by: Reviewed: Reviewed by Me (GRACE LIANG) Diagonstic Imaging: CT Plain Films/CT/US/NM/MRI: chest Comments [place] NAME: GARRETT TH[facility] REC#: [id number] PT STATUS: REG ER : 1960 PHYSICIAN: GRACE LIANG MD ADMIT DATE: 05/29/18/ER Draft Date of Exam:05/29/18 CT DASHA CHEST/NOANG ABD-PELV W INDICATION: Status post ablation procedure of the heart today, now complaining of shortness of breath and midsternal chest pain. COMPARISON: Prior CT angiogram of the chest from 07/27/2015. TECHNIQUE: Axial imaging through the chest, abdomen and pelvis was performed after the administration of intravenous contrast. CT angiography protocol was used for the chest with multiplanar, 3D MIP reformations performed. CT ANGIOGRAM CHEST: Ascending thoracic aorta remains prominent at approximately 4.1 cm, stable when compared to prior study. Aortic arch and descending thoracic aorta are unremarkable. No dissection is seen. Evaluation of the pulmonary arterial system is without thromboemboli. No filling defects are seen within central, lobar or segmental branches. No pericardial fluid is seen. There are trace bilateral pleural effusions. No axillary lymphadenopathy is seen. There are prominent lymph nodes in the mediastinum. A right paratracheal node measures 1.8 x 1.3 cm. Haley are unremarkable. Parenchymal evaluation does show areas of subsegmental atelectasis or infiltrate in bilateral lower lobes. IMPRESSION: 1. No evidence of pulmonary embolism or thoracic aortic dissection. 2. Nonspecific mildly prominent lymph nodes in the mediastinum, increased when compared with CT study from 2015. Followup to confirm stability is recommended. 3. Trace bilateral pleural effusions with bibasilar infiltrates or atelectasis. CT ABDOMEN AND PELVIS: The liver and gallbladder are unremarkable. The pancreas is unremarkable. There is a peripherally calcified lesion in the spleen, approximately 19 mm, stable. There is a nodule in the lateral limb of the right adrenal gland, stable when compared with prior, left adrenal is unremarkable. The kidneys are unremarkable. The aorta is nonaneurysmal. No dissection is seen. The small and large bowel loops are normal caliber. No obstruction is seen. There is no ascites. The bladder is unremarkable. Prostate is unremarkable. IMPRESSION: Stable unremarkable CT of the abdomen and pelvis with compared with prior study from 07/27/2015. No acute feature is detected. Dictated on workstation # [id number] Dict: 05/29/18 1830 Trans: 05/29/18 1905 [facility] [id number] Interpreted by: HANDY BLANCAS MD Electronically signed by: (SWATHI MANZANO MD) Consults : Consulting Physician: BAYRON ELKINS MD Consults Notes Discussed the case and he feels a fistula or cold heart is a possibility but since he does not do these particular procedures she would recommend that we call the cardiology team who did the procedure at and get their advice. He thinks that with the recent clean catheter a nitroglycerin is useless and we should use morphine to control pain. Spoke with Dr Rodriguez, the shuttle hand on-call for Dr. Grant, at [facility] and he recommends that the most likely statistical source of the pain is for pericarditis. He reviewed the record and said that the ablation for atrial flutter usually goes without a hitch and that this procedure per the notes was fairly uneventful. He thinks it is a possibility to have a tamponade however rare and to rule out out if there is no symptoms of acute tamponade he would observe the patient overnight and get an echocardiogram in the morning. If there is no effusion then the patient is good to go home however if there is then we can transfer to [facility]. He recommends that we control pain with morphine and NSAIDs. He says a fistula is unlikely but a rare possibility as well. He says a puncture of the heart is about a 1 in 100 risk with this particular procedure. A remote possibility is that as the ablation is occurring they could theoretically burn a clot into a coronary artery however we should expect to see an elevated troponin secondary to his recent ablation and since we've already obtained a troponin we can trend it to rule out that possibility. If we do not feel comfortable managing this patient we could also transferred to [facility]. Worst case scenario the patient develops a cardiac tamponade overnight and needs needle decompression. He recommends cardiology consultation. (GRACE LIANG) Transfer of Care Time: 18:15 Care transferred to: Dr Manzano (GRACE LIANG) Departure Communication (Admissions) Time/Spoke to Admitting Phy: 19:45 Time/Spoke to Consulting Phy: 18:00 (SWATHI MANZANO MD) Impression Primary Impression: Pericarditis Qualified Codes: I30.9 - Acute pericarditis, unspecified Additional Impression: Chest pain Qualified Codes: R07.9 - Chest pain, unspecified Disposition: 09 ADMITTED INPATIENT Condition: Stable Admissions Decision to Admit Reason: Admit from ER (General) Decision to Admit/Date: May 29, 2018 Time/Decision to Admit Time: 18:15 (SWATHI MANZANO MD) Departure-Patient Inst. Referrals: FARIHA CRAFT MD (PCP/Family) Primary Care Physician GRACE LIANG May 29, 2018 17:35 SWATHI MANZANO MD May 29, 2018 20:01
[2018-05-29 17:36] VITALS: BP 135/90
[2018-05-29 17:36] LABS: PROTHROMBIN TIME PATIENT 13.1 SEC (12.2-14.7)
[2018-05-29 17:38] VITALS: BP 128/86
[2018-05-29 17:44] LABS: ALBUMIN 4.3 GM/DL (3.2-4.5); BILIRUBIN,TOTAL 0.5 MG/DL (0.1-1.0); CALCIUM 9.2 MG/DL (8.5-10.1); CREATININE SERUM 1.25 MG/DL (0.60-1.30); MAGNESIUM 2.2 MG/DL (1.8-2.4); POTASSIUM 4.1 MMOL/L (3.6-5.0); TOTAL PROTEIN 6.7 GM/DL (6.4-8.2)
[2018-05-29 17:50] LABS: MYOGLOBIN SERUM 65.3 NG/ML (10.0-92.0)
[2018-05-29] MEDS ORDERED: KETOROLAC 30 MG/ML VIAL ONE (18:17)
--- NOTE | 2018-05-29 19:05 | Diagnostic Imaging Report ---
INDICATION: Status post ablation procedure of the heart today, now complaining of shortness of breath and midsternal chest pain. COMPARISON: Prior CT angiogram of the chest from 07/27/2015. TECHNIQUE: Axial imaging through the chest, abdomen and pelvis was performed after the administration of intravenous contrast. CT angiography protocol was used for the chest with multiplanar, 3D MIP reformations performed. CT ANGIOGRAM CHEST: Ascending thoracic aorta remains prominent at approximately 4.1 cm, stable when compared to prior study. Aortic arch and descending thoracic aorta are unremarkable. No dissection is seen. Evaluation of the pulmonary arterial system is without thromboemboli. No filling defects are seen within central, lobar or segmental branches. No pericardial fluid is seen. There are trace bilateral pleural effusions. No axillary lymphadenopathy is seen. There are prominent lymph nodes in the mediastinum. A right paratracheal node measures 1.8 x 1.3 cm. Haley are unremarkable. Parenchymal evaluation does show areas of subsegmental atelectasis or infiltrate in bilateral lower lobes. IMPRESSION: 1. No evidence of pulmonary embolism or thoracic aortic dissection. 2. Nonspecific mildly prominent lymph nodes in the mediastinum, increased when compared with CT study from 2015. Followup to confirm stability is recommended. 3. Trace bilateral pleural effusions with bibasilar infiltrates or atelectasis. CT ABDOMEN AND PELVIS: The liver and gallbladder are unremarkable. The pancreas is unremarkable. There is a peripherally calcified lesion in the spleen, approximately 19 mm, stable. There is a nodule in the lateral limb of the right adrenal gland, stable when compared with prior, left adrenal is unremarkable. The kidneys are unremarkable. The aorta is nonaneurysmal. No dissection is seen. The small and large bowel loops are normal caliber. No obstruction is seen. There is no ascites. The bladder is unremarkable. Prostate is unremarkable. IMPRESSION: Stable unremarkable CT of the abdomen and pelvis with compared with prior study from 07/27/2015. No acute feature is detected. Dictated by: Dictated on workstation # [id number]
--- OUTSIDE RECORDS SUMMARY | 2018-05-29 20:12 | XMS REPORT | Clinical Summary ---
Author Author [facility] Organization [facility] Address Unknown Phone Unavailable Care Team Providers Care Bargeman Name Role Phone Antonio Hawthorne MD PCP Source Comments Some departments are not documenting in the electronic medical record. If you do not see the information that you expected, contact Release of Information in the Health Information Management department at [phone] for further assistance in locating additional records.[facility] Allergies Active Allergy Reactions Severity Noted Date [...] Active Problems Problem Noted Date Atrial fibrillation ([facility]) 05/21/2018 Overview: [facility] NANNETTE on CPAP 05/21/2018 Type 2 diabetes mellitus ([facility]) 05/21/2018 Essential hypertension 05/21/2018 Atrial flutter ([facility]) 05/21/2018 Overview: 04/2015 during hospitalization 02/2018 ED visit 02/2018 Echo: EF 55 - 0%. Aortic valve sclerosis wihtout significant aortic stenosis. mild to mod enlargement of the ascending aorta measuring up to 4.3 cm 02/21/18 Holter [id number] throughout 24 hour study. average ventricular rate + 99 bpm 03/12/18 MPE : A-flutter wth RVR throughout test, no evidenceof myocardial ischemia or infarction LVEF 58% 03/19/18 Cardioversion and SR retored 05/01/18 Afib/flutter with RVR noted 05/14/18 [facility]. minimal CAD, EF 60%, elevated LVEDP, no significant mitral regurgitation or aortic regurgitation. Successful cardioversion from AF to SR Ascending aortic aneurysm ([facility]) 05/21/2018 Overview: 07/27/15 4.3 cm in he mid ascending aorta and 5 cm at the aortic sinus level. followed by Dr Mobley of the CV service at [facility] in [place], [place] 02/2018 Echo: EF 55 - 0%. Aortic valve sclerosis wihtout significant aortic stenosis. mild to mod enlargement of the ascending aorta measuring up to 4.3 cm Encounters Date Type Specialty Care Team Description 05/29/2018 Telephone Cardiology Hailee Greco, NICK 05/28/2018 Hospital Cardiology Babatunde Ordonez MD Atrial flutter ([facility] ) - Encounter 05/29/2018 05/28/2018 Anesthesia Cardiology Eriberto Chavez, DETACKER Event 05/28/2018 Procedure Pass Cardiology 05/28/2018 Surgery [...] Precertification (Approval for EPS/RFA through [employer] [place]) 05/21/2018 Prep for Case Cardiology Babatunde Ordonez [...] City/State/Zipcode Phone Number [facility] [address] [place] [address] * CBC (05/29/2018 3:50 AM) White Blood [...] MAIN LAB Specimen Blood Performing Organization Address City/[facility]/Zipcode Phone Number [facility] [address] [place] [address] * BASIC METABOLIC PANEL (05/29/2018 3:50 AM) [...] LAB Creatinine 0.98 0.4 - 1.24 MG/DL [facility] Calcium 8.4 (L) 8.5 - 10.6 MG/DL [facility] eGFR Non >60 >60 mL/min [facility] Comment: The eGFR is not validated for use in drug dosing adjustments.Continue to use estimated creatinine clearance per dosing reference text.Please contact the Clinical Pharmacist for questions. eGFR >60 >60 mL/min [facility] Comment: The eGFR is not validated for use in drug dosing adjustments.Continue to use estimated creatinine clearance per dosing reference text.Please contact the Clinical Pharmacist for questions. Specimen Blood Performing Organization Address City/[facility]/Zipcode Phone Number [facility] [address] [place] [address] * EP STUDY (05/28/2018 2:46 PM) Impressions [...] placement. --Intracardiac 3-D electroanatomic mapping using the [employer] mapping system. --SVT Ablation. --Moderate sedation. BRIEF SUMMARY: Patient presented in atrial flutter.Atrial flutter mapped through the isthmus with 3D mapping and catheter mapping.Also treatment mapping performed.Having demonstrated an isthmus dependent atrial flutter circuit.RF ablation to be done in the line from 0600 o'clock in the TUVALUAN view across the sub-eustachian isthmus resulted in termination of the AFL abruptly with scientologist of sinus rhythm however conduction block was not completely established just conduction delay.Further RF ablation through 0600 quickly resulted in a counterclockwise conduction block however clockwise conduction block was still present.Additional RF along the septal edge of the 0600 o'clock line result in bidirectional conduction block.This was monitored.No scientologist of conduction was noted. HEAD SHIPPER:Babatunde Ordonez M.D. SHEEP RANCHER: NONE INDICATION FOR PROCEDURE: Recurrent AFL PRESENTING [...] Pole defectable EP catheter inserted via a 7.Belarusian sheath in the right femoral vein, advanced to the lateral wall of the right atrium close to the elena teminalis with the distal poles at the low lateral RA and the proximal poles at the high lateral RA. Decapolar deflectable EP catheter inserted via a 6 Belarusian sheath in the right femoral vein, advanced to the coronary sinus. Thermacool FSt. Russ flex tipcurve ablation catheter inserted via an 8 Belarusian SRO sheath in the right femoral vein, advanced to the right atrium utilized for mapping and ablation..One of these catheters was placed at the AV junction intermittently during the procedure. --Cristae-20 Pole deflectable EP catheter inserted via a 7 Belarusian sheath in the right femoral vein, advanced to the lateral wall of the right atrium close to the elena terminalis with the distal poles at the low lateral RA and the proximal poles at the high lateral RA. --Decapolar deflectable EP catheter inserted via a 6Fr Belarusian sheath in the right femoral vein, advanced to the coronary sinus. --St. Russ FlexTip irrigated ablation catheter inserted via an 8.5 Belarusian SRO sheath in the right femoral vein, advanced to the right atrium utilized for mapping and ablation. Also note, the SRO sheath was exchanged at the end of the procedure for a short 8.5 Belarusian sheath. ARRHYTHMIAS: -- Atrial flutter that appeared [...] at the RA-IVC junction.Lines were also created [id number]. Patient presented in atrial flutter.Atrial flutter mapped through the isthmus with 3D mapping and catheter mapping.Also treatment mapping performed.Having demonstrated an isthmus dependent atrial flutter circuit.RF ablation to be done in the line from 0600 o'clock in the TUVALUAN view across the sub-eustachian isthmus resulted in termination of the AFL abruptly with scientologist of sinus rhythm however conduction block was not completely established just conduction delay.Further RF ablation through 0600 quickly resulted in a counterclockwise conduction block however clockwise conduction block was still present.Additional RF along the septal edge of the 0600 o'clock line result in bidirectional conduction block.This was monitored.No scientologist of conduction was noted. Upon completion of [...] the line from 0600 o'clock in the TUVALUAN view across the sub-eustachian isthmus resulted in termination of the AFL abruptly with scientologist of sinus rhythm however conduction block was not completely established just conduction delay.Further RF ablation through 0600 quickly resulted in a counterclockwise conduction block however clockwise conduction block was still present.Additional RF along the septal edge of the 0600 o'clock line result in bidirectional conduction block.This was monitored.No scientologist of conduction was noted. HEAD SHIPPER:Babatudne Ordonez M.D. SHEEP RANCHER: NONE INDICATION FOR PROCEDURE: Recurrent AFL PRESENTING [...] Pole defectable EP catheter inserted via a 7.Belarusian sheath in the right femoral vein, advanced to the lateral wall of the right atrium close to the elena teminalis with the distal poles at the low lateral RA and the proximal poles at the high lateral RA. Decapolar deflectable EP catheter inserted via a 6 Belarusian sheath in the right femoral vein, advanced to the coronary sinus. Thermacool FSt. Russ flex tipcurve ablation catheter inserted via an 8 Belarusian SRO sheath in the right femoral vein, advanced to the right atrium utilized for mapping and ablation..One of these catheters was placed at the AV junction intermittently during the procedure. --Cristae-20 Pole deflectable EP catheter inserted via a 7 Belarusian sheath in the right femoral vein, advanced to the lateral wall of the right atrium close to the elena terminalis with the distal poles at the low lateral RA and the proximal poles at the high lateral RA. --Decapolar deflectable EP catheter inserted via a 6Fr Belarusian sheath in the right femoral vein, advanced to the coronary sinus. --St. Russ FlexTip irrigated ablation catheter inserted via an 8.5 Belarusian SRO sheath in the right femoral vein, advanced to the right atrium utilized for mapping and ablation. Also note, the SRO sheath was exchanged at the end of the procedure for a short 8.5 Belarusian sheath. ARRHYTHMIAS: -- Atrial flutter that appeared [...] at the RA-IVC junction.Lines were also created [id number]. Patient presented in atrial flutter.Atrial flutter mapped through the isthmus with 3D mapping and catheter mapping.Also treatment mapping performed.Having demonstrated an isthmus dependent atrial flutter circuit.RF ablation to be done in the line from 0600 o'clock in the TUVALUAN view across the sub-eustachian isthmus resulted in termination of the AFL abruptly with scientologist of sinus rhythm however conduction block was not completely established just conduction delay.Further RF ablation through 0600 quickly resulted in a counterclockwise conduction block however clockwise conduction block was still present.Additional RF along the septal edge of the 0600 o'clock line result in bidirectional conduction block.This was monitored.No scientologist of conduction was noted. Upon completion of [...] end of the study. Performing Organization Address City/[facility]/Zipcode Phone Number OTHER OUTSIDE LAB * CBC [...] 17.0 % [facility] RES[facility] Performing Organization Address City/[facility] Phone Number [facility] [address] [facility], [facility] [address] [place] [address] * MAGNESIUM (05/21/2018 11:57 AM) Magnesium 1.9 1.5 - 2.5 mg/dL [facility] Comment: Test Performed at: [facility] [address] [facility] [place], [id number] TIFFANIE NICHOLSON DO,MPH Performing Organization Address City/[facility]/Zipcode Phone Number [facility] [address] [place] [address] * ECG/QRS (05/21/2018 10:12 AM) QRS DURATION 90 OTHER OUTSIDE LAB Performing Organization Address City/[facility] Phone Number OTHER OUTSIDE LAB from Last 3 Months
--- OUTSIDE RECORDS SUMMARY | 2018-05-29 20:12 | XMS REPORT | Encounter Summary ---
Author Author [facility] Organization [facility] Address Unknown Phone Unavailable Care Team Providers Care Advertising Sales Consultant Name Role Phone Antonio Hawthorne MD PCP Encounter Details Date Type Department Care Team Description 05/29/2018 Telephone [facility] Cardiology Hailee Greco, RN [address] [place] [address] Social History Tobacco Use Types Packs/Day Years Used Date Never Assessed Sex Assigned at Date Recorded Not on file as of this encounter Miscellaneous Notes * Telephone Encounter - Hailee Greco RN - 05/29/2018 5:10 PM CDT attempted to return call to his cell phone number, reached on her cell phone they were at [place], [place] ED [place] was discharged today following Atrial Flutter Ablation yesterday 05/28, dismissed today from [facility] she states they got home ([address] and he was doing ok, states he was lying down. Mrs Mulligan said he got extremely short of breath, chest pain. states she drove him emergently to hospital notified Dr Ordonez * Telephone Encounter - Hailee Greco RN [...]
--- OUTSIDE RECORDS SUMMARY | 2018-05-29 20:13 | XMS REPORT | Encounter Summary ---
Author Author [facility] Organization [facility] Address Unknown Phone Unavailable Care Team Providers Care Qa Architect Name Role Phone Antonio Hawthorne MD PCP Encounter Details Date Type Department Care Team Description 05/21/2018 Prep for Case [facility] Cardiology Babatunde Ordonez MD Typical atrial flutter [facility] [place] [facility] (HCC) (Primary Dx) [facility] [address] [address] [place] [address] [place] [address] [phone] Social History Tobacco Use Types Packs/Day Years Used Date Never Assessed Sex Assigned at Date Recorded Not on file as of this encounter Plan of Treatment Not on fileas of this encounter Visit Diagnoses Diagnosis Typical atrial flutter (HCC) - Primary Atrial flutter
--- OUTSIDE RECORDS SUMMARY | 2018-05-29 20:13 | XMS REPORT | Encounter Summary ---
Author Author [facility] Organization [facility] Address Unknown Phone Unavailable Care Team Providers Care Doubler Helper Name Role Phone Antonio Hawthorne MD PCP Reason for Visit * Reason Comments Precertification Approval for EPS/RFA through [facility] Encounter Details Date Type Department Care Team Description 05/21/2018 Documentation [facility] Neal Brambila RN Precertification [place] [address] (Approval for EPS/RFA [address] [facility] through [facility]) [place] [address] Social History Tobacco Use Types Packs/Day Years Used Date Never Assessed Sex Assigned at Date Recorded Not on file as of this encounter Progress Notes * Neal Brambila RN - 05/21/2018 4:21 PM CDT Cable with [facility], , confirmed benefits and eligibility: Current and active since 01/01/2017, $1500 deductible with required co-insurance of 40% to max OOP $2000, then plan will pay 100% of allowable charges. No pre- certification is required for EPS/RFA for Atrial Flutter, Cardioversion or for CINTHYA if needed [phone]. Reference #[id number] in this encounter Plan of Treatment Not on fileas of this encounter Visit Diagnoses Not on filein this encounter
--- OUTSIDE RECORDS SUMMARY | 2018-05-29 20:13 | XMS REPORT | Encounter Summary ---
Author Author [facility] Organization [facility] Address Unknown Phone Unavailable Care Team Providers Care Physician Pediatrician Name Role Phone Antonio Hawthorne MD PCP Reason for Visit * Auth/Cert (Routine) Status Reason Specialty Diagnoses / Referred By Referred To Procedures Contact Contact Encounter Details Date Type Department Care Team Description 05/28/2018 Anesthesia [facility] EP LAB Eriberto Chavez CRNA Event [address] [facility]. [address] [place] [address] [address] [address] [place] [address] [phone] Anesthesia Record Procedure Name Responsible Anesthesia Start [...] consented Plan discussed with: anesthesiologist, surgeon/proceduralist and DIE SETTER. Comments: (Will be available if needed for cardioversion and/or if pt obstructs during the case) in this encounter Plan of Treatment Not on fileas of this encounter Visit Diagnoses Not on filein this encounter
--- OUTSIDE RECORDS SUMMARY | 2018-05-29 20:13 | XMS REPORT | Encounter Summary ---
Author Author [facility] Organization [facility] Address Unknown Phone Unavailable Care Team Providers Care Silvering Department Supervisor Name Role Phone Antonio Hawthorne MD PCP Encounter Details Date Type Department Care Team Description 05/28/2018 Procedure Pass [facility] EP LAB [address] [facility] [place] [address] Social History Tobacco Use Types Packs/Day Years Used Date Never Assessed Sex Assigned at Date Recorded Not on file as of this encounter Plan of Treatment Not on fileas of this encounter Visit Diagnoses Not on filein this encounter
--- OUTSIDE RECORDS SUMMARY | 2018-05-29 20:13 | XMS REPORT | Encounter Summary ---
Author Author [facility] Organization [facility] Address Unknown Phone Unavailable Care Team Providers Care Supervisor Volunteer Services Name Role Phone Antonio Hawthorne MD PCP Encounter Details Date Type Department Care Team Description 05/21/2018 Orders Only [facility] Babatunde Ordonez MD [place] [address] [place] [address] [place] [address] [place] [address] [phone] Social History Tobacco Use Types Packs/Day Years [...] 17.0 % [facility] RESULTS Performing Organization Address [facility] [address]/[facility] Phone Number [facility] RES[facility] [address] [address] * MAGNESIUM (05/21/2018 11:57 AM) Magnesium 1.9 1.5 - 2.5 mg/dL [facility] Comment: Test Performed at: [facility] [place] [address] [address] [id number] TIFFANIE NICHOLSON DO,MPH Performing Organization Address [facility] [address]/[facility] Phone Number [facility] [address] [place] [address] in this encounter Visit Diagnoses Not on filein this encounter
--- OUTSIDE RECORDS SUMMARY | 2018-05-29 20:13 | XMS REPORT | Encounter Summary ---
Author Author [facility] Organization [facility] Address Unknown Phone Unavailable Care Team Providers Care Rn Coronary Care Unit Name Role Phone Antonio Hawthorne MD PCP Reason for Visit * Reason Comments Labs Only Encounter Details Date Type Department Care Team Description 05/21/2018 Lab Only [facility] [place] [facility] Typical atrial flutter Medicine (HCC); [facility] [place] [facility] 3rd Essential hypertension; fl [address] fibrillation (HCC) [place] [address] Social History Tobacco Use Types Packs/Day Years [...] Organization Address City/State/Zipcode Phone Number [facility] RESULTS [address] [facility], [facility] [address] [place] [address] in this encounter Visit Diagnoses Diagnosis Typical atrial flutter (HCC) Atrial flutter Essential hypertension Unspecified essential hypertension Paroxysmal atrial fibrillation (HCC) Atrial fibrillation
--- OUTSIDE RECORDS SUMMARY | 2018-05-29 20:13 | XMS REPORT | Encounter Summary ---
Author Author [facility] Organization [facility] Address Unknown Phone Unavailable Care Team Providers Care Emergency Medical Services Coordinator Name Role Phone Antonio Hawthorne MD PCP Encounter Details Date Type Department Care Team Description 05/22/2018 Pre-Admit XDD CARDIOLOGY Aspen [place], PAVianneyC Orders Only [address] [place] [address] Social History Tobacco Use Types Packs/Day Years Used Date Never Assessed Sex Assigned at Date Recorded Not on file as of this encounter Plan of Treatment Not on fileas of this encounter Visit Diagnoses Not on filein this encounter
--- OUTSIDE RECORDS SUMMARY | 2018-05-29 20:13 | XMS REPORT | Encounter Summary ---
Author Author [facility] Organization [facility] Address Unknown Phone Unavailable Care Team Providers Care Wash Plant Operator Name Role Phone Antonio Hawthorne MD PCP Reason for Visit * Auth/Cert (Routine) Status Reason Specialty Diagnoses / Referred By Referred To Procedures Contact Contact Encounter Details Date Type Department Care Team Description 05/28/2018 Surgery HC2 EP LAB Babatunde Ordonez MD INTRACARDIAC CATHETER [address] [place] [address] [address] COMPREHENSIVE [phone] [place] [address] ELECTROPHYSIOLOGIC [phone] EVALUATION - TYPICAL FLUTTER Social History Tobacco [...] a hematoma after ambulation. [facility] Patient to follow up with [facility] Cardiology (MAC) or on-call physician with any [...] CDT Cardiac Electrophysiology Brief Post-Procedure Note Attending Getterer: Babatunde Ordonez MD Fellow: NONE Preoperative diagnosis: [...] the line from 0600 o'clock in the INDIAN view across the sub- eustachian isthmus resulted in termination of the AFL abruptly with jewish of sinus rhythm however conduction block was not completely established just conduction delay. Further RF ablation through 0600 quickly resulted in a counterclockwise conduction block however clockwise conduction block was still present. Additional RF along the septal edge of the 0600 o'clock line result in bidirectional conduction block. This was monitored. No jewish of conduction was noted. Conduction Times: -Baseline [...] removed: None Sheaths: All via the RFV--8.5 Cymro SRO guide sheath used for mapping ablation catheter; 6 Cymro sheath for CS catheter; 7 Cymro sheath for the elena catheter based along [...] --Follow-up with Dr. Anusha Valencia his primary outside maintenance worker in [facility] in [address] Ordonez in [...] Address City/State/Zipcode Phone Number [facility] [address] [place] [address] * BASIC METABOLIC PANEL (05/29/2018 3:50 AM) [...] for questions. Specimen Blood Performing Organization Address City/[facility] Phone Number MAIN LAB [address] [place] [address] * CBC (05/29/2018 3:50 AM) White Blood [...] MAIN LAB Specimen Blood Performing Organization Address [facility] Phone Number MAIN LAB [address] [place] [address] * POC GLUCOSE (05/28/2018 9:53 PM) Glucose, POC 154 (H) 70 - 100 MG/DL [facility] Performing Organization Address [facility] Phone Number [facility] [address] [place] [phone] * POC GLUCOSE (05/28/2018 3:17 PM) Glucose, POC 107 (H) 70 - 100 MG/DL [facility] Performing Organization Address [facility] Phone Number [facility] [address] [place] [address] * EP DEVICE (05/28/2018 2:46 PM) Impressions [...] placement. --Intracardiac 3-D electroanatomic mapping using the [employer] mapping system. --SVT Ablation. --Moderate sedation. BRIEF SUMMARY: Patient presented in atrial flutter.Atrial flutter mapped through the isthmus with 3D mapping and catheter mapping.Also treatment mapping performed.Having demonstrated an isthmus dependent atrial flutter circuit.RF ablation to be done in the line from 0600 o'clock in the INDIAN view across the sub-eustachian isthmus resulted in termination of the AFL abruptly with jewish of sinus rhythm however conduction block was not completely established just conduction delay.Further RF ablation through 0600 quickly resulted in a counterclockwise conduction block however clockwise conduction block was still present.Additional RF along the septal edge of the 0600 o'clock line result in bidirectional conduction block.This was monitored.No jewish of conduction was noted. SEA KAYAKING GUIDE:Babatunde Ordonez M.D. TOOLER: NONE INDICATION FOR PROCEDURE: Recurrent AFL PRESENTING [...] trained Registered Nurse who was supervised by nv. The patient underwent continuous blood pressure, heart [...] at the RA-IVC junction.Lines were also created [id number]. Patient presented in atrial flutter.Atrial flutter mapped through the isthmus with 3D mapping and catheter mapping.Also treatment mapping performed.Having demonstrated an isthmus dependent atrial flutter circuit.RF ablation to be done in the line from 0600 o'clock in the INDIAN view across the sub-eustachian isthmus resulted in termination of the AFL abruptly with jewish of sinus rhythm however conduction block was not completely established just conduction delay.Further RF ablation through 0600 quickly resulted in a counterclockwise conduction block however clockwise conduction block was still present.Additional RF along the septal edge of the 0600 o'clock line result in bidirectional conduction block.This was monitored.No jewish of conduction was noted. Upon completion of [...] the line from 0600 o'clock in the INDIAN view across the sub-eustachian isthmus resulted in termination of the AFL abruptly with jewish of sinus rhythm however conduction block was not completely established just conduction delay.Further RF ablation through 0600 quickly resulted in a counterclockwise conduction block however clockwise conduction block was still present.Additional RF along the septal edge of the 0600 o'clock line result in bidirectional conduction block.This was monitored.No jewish of conduction was noted. SEA KAYAKING GUIDE:Babatunde Ordonez M.D. TOOLER: NONE INDICATION FOR PROCEDURE: Recurrent AFL PRESENTING [...] at the RA-IVC junction.Lines were also created [id number]. Patient presented in atrial flutter.Atrial flutter mapped through the isthmus with 3D mapping and catheter mapping.Also treatment mapping performed.Having demonstrated an isthmus dependent atrial flutter circuit.RF ablation to be done in the line from 0600 o'clock in the INDIAN view across the sub-eustachian isthmus resulted in termination of the AFL abruptly with jewish of sinus rhythm however conduction block was not completely established just conduction delay.Further RF ablation through 0600 quickly resulted in a counterclockwise conduction block however clockwise conduction block was still present.Additional RF along the septal edge of the 0600 o'clock line result in bidirectional conduction block.This was monitored.No jewish of conduction was noted. Upon completion of [...] Address City/State/Zipcode Phone Number MAIN LAB [address] [place] [address] in this encounter Visit Diagnoses Diagnosis Typical [...]
--- OUTSIDE RECORDS SUMMARY | 2018-05-29 20:13 | XMS REPORT | Encounter Summary ---
Author Author [facility] Organization [facility] Address Unknown Phone Unavailable Care Team Providers Care District Customs Director Name Role Phone Antonio Hawthorne MD PCP Reason for Visit * Auth/Cert (Routine) Status Reason Specialty Diagnoses / Referred By Referred To Procedures Contact Contact Encounter Details Date Type Department Care Team Description 05/28/2018 Hospital Cardiac Catheterization Babatunde Ordonez MD Atrial flutter (HCC) - Encounter Laboratory [address] 05/29/[address] [place] [address] [place] [address] [phone] Social History Tobacco Use Types Packs/Day Years [...] a hematoma after ambulation. [facility] [employer] Patient to follow up with [facility] Cardiology (MAC) or on-call physician [...] CDT Cardiac Electrophysiology Brief Post-Procedure Note Attending Informatica Architect: Babatunde Ordonez MD Fellow: NONE Preoperative diagnosis: [...] the line from 0600 o'clock in the [place] view across the sub- eustachian isthmus resulted in termination of the AFL abruptly with episcopalian of sinus rhythm however conduction block was not completely established just conduction delay. Further RF ablation through 0600 quickly resulted in a counterclockwise conduction block however clockwise conduction block was still present. Additional RF along the septal edge of the 0600 o'clock line result in bidirectional conduction block. This was monitored. No episcopalian of conduction was noted. Conduction Times: -Baseline [...] removed: None Sheaths: All via the RFV--8.5 Georgian SRO guide sheath used for mapping ablation catheter; 6 Georgian sheath for CS catheter; 7 Georgian sheath for the elena catheter based along [...] --Follow-up with Dr. 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 Ordonez [...] Address City/State/Zipcode Phone Number [facility] [address] [place] [address] * BASIC METABOLIC PANEL (05/29/2018 3:50 AM) [...] for questions. Specimen Blood Performing Organization Address City/[facility] Phone Number MAIN LAB [address] [place] [address] * CBC (05/29/2018 3:50 AM) White Blood [...] MAIN LAB Specimen Blood Performing Organization Address [facility] Phone Number MAIN LAB [address] [place] [address] * POC GLUCOSE (05/28/2018 9:53 PM) Glucose, POC 154 (H) 70 - 100 MG/DL [facility] Performing Organization Address [facility] Phone Number MAIN LAB [address] [place] [phone] * POC GLUCOSE (05/28/2018 3:17 PM) Glucose, POC 107 (H) 70 - 100 MG/DL [facility] Performing Organization Address [facility] Phone Number MAIN LAB [address] [place] [phone] * EP DEVICE (05/28/2018 2:46 PM) Impressions [...] placement. --Intracardiac 3-D electroanatomic mapping using the [employer] mapping system. --SVT Ablation. --Moderate sedation. BRIEF SUMMARY: Patient presented in atrial flutter.Atrial flutter mapped through the isthmus with 3D mapping and catheter mapping.Also treatment mapping performed.Having demonstrated an isthmus dependent atrial flutter circuit.RF ablation to be done in the line from 0600 o'clock in the [place] view across the sub-eustachian isthmus resulted in termination of the AFL abruptly with episcopalian of sinus rhythm however conduction block was not completely established just conduction delay.Further RF ablation through 0600 quickly resulted in a counterclockwise conduction block however clockwise conduction block was still present.Additional RF along the septal edge of the 0600 o'clock line result in bidirectional conduction block.This was monitored.No episcopalian of conduction was noted. VENEER TRIMMER:Babatunde Ordonez M.D. HEALTH CONSULTANT: NONE INDICATION FOR PROCEDURE: Recurrent AFL PRESENTING [...] trained Registered Nurse who was supervised by nc. The patient underwent continuous blood pressure, heart [...] Pole defectable EP catheter inserted via a 7.Georgian sheath in the right femoral vein, advanced to the lateral wall of the right atrium close to the elena teminalis with the distal poles at the low lateral RA and the proximal poles at the high lateral RA. Decapolar deflectable EP catheter inserted via a 6 Georgian sheath in the right femoral vein, advanced to the coronary sinus. Thermacool FSt. Russ flex tipcurve ablation catheter inserted via an 8 Georgian SRO sheath in the right femoral vein, advanced to the right atrium utilized for mapping and ablation..One of these catheters was placed at the AV junction intermittently during the procedure. --Cristae-20 Pole deflectable EP catheter inserted via a 7 Georgian sheath in the right femoral vein, advanced to the lateral wall of the right atrium close to the elena terminalis with the distal poles at the low lateral RA and the proximal poles at the high lateral RA. --Decapolar deflectable EP catheter inserted via a 6Fr Georgian sheath in the right femoral vein, advanced to the coronary sinus. --St. Russ FlexTip irrigated ablation catheter inserted via an 8.5 Georgian SRO sheath in the right femoral vein, advanced to the right atrium utilized for mapping and ablation. Also note, the SRO sheath was exchanged at the end of the procedure for a short 8.5 Georgian sheath. ARRHYTHMIAS: -- Atrial flutter that appeared [...] at the RA-IVC junction.Lines were also created [id number]. Patient presented in atrial flutter.Atrial flutter mapped through the isthmus with 3D mapping and catheter mapping.Also treatment mapping performed.Having demonstrated an isthmus dependent atrial flutter circuit.RF ablation to be done in the line from 0600 o'clock in the [place] view across the sub-eustachian isthmus resulted in termination of the AFL abruptly with episcopalian of sinus rhythm however conduction block was not completely established just conduction delay.Further RF ablation through 0600 quickly resulted in a counterclockwise conduction block however clockwise conduction block was still present.Additional RF along the septal edge of the 0600 o'clock line result in bidirectional conduction block.This was monitored.No episcopalian of conduction was noted. Upon completion of [...] the line from 0600 o'clock in the [place] view across the sub-eustachian isthmus resulted in termination of the AFL abruptly with episcopalian of sinus rhythm however conduction block was not completely established just conduction delay.Further RF ablation through 0600 quickly resulted in a counterclockwise conduction block however clockwise conduction block was still present.Additional RF along the septal edge of the 0600 o'clock line result in bidirectional conduction block.This was monitored.No episcopalian of conduction was noted. VENEER TRIMMER:Babatunde Ordonez M.D. HEALTH CONSULTANT: NONE INDICATION FOR PROCEDURE: Recurrent AFL PRESENTING [...] Pole defectable EP catheter inserted via a 7.Georgian sheath in the right femoral vein, advanced to the lateral wall of the right atrium close to the elena teminalis with the distal poles at the low lateral RA and the proximal poles at the high lateral RA. Decapolar deflectable EP catheter inserted via a 6 Georgian sheath in the right femoral vein, advanced to the coronary sinus. Thermacool FSt. Russ flex tipcurve ablation catheter inserted via an 8 Georgian SRO sheath in the right femoral vein, advanced to the right atrium utilized for mapping and ablation..One of these catheters was placed at the AV junction intermittently during the procedure. --Cristae-20 Pole deflectable EP catheter inserted via a 7 Georgian sheath in the right femoral vein, advanced to the lateral wall of the right atrium close to the elena terminalis with the distal poles at the low lateral RA and the proximal poles at the high lateral RA. --Decapolar deflectable EP catheter inserted via a 6Fr Georgian sheath in the right femoral vein, advanced to the coronary sinus. --St. Russ FlexTip irrigated ablation catheter inserted via an 8.5 Georgian SRO sheath in the right femoral vein, advanced to the right atrium utilized for mapping and ablation. Also note, the SRO sheath was exchanged at the end of the procedure for a short 8.5 Georgian sheath. ARRHYTHMIAS: -- Atrial flutter that appeared [...] at the RA-IVC junction.Lines were also created [id number]. Patient presented in atrial flutter.Atrial flutter mapped through the isthmus with 3D mapping and catheter mapping.Also treatment mapping performed.Having demonstrated an isthmus dependent atrial flutter circuit.RF ablation to be done in the line from 0600 o'clock in the [place] view across the sub-eustachian isthmus resulted in termination of the AFL abruptly with episcopalian of sinus rhythm however conduction block was not completely established just conduction delay.Further RF ablation through 0600 quickly resulted in a counterclockwise conduction block however clockwise conduction block was still present.Additional RF along the septal edge of the 0600 o'clock line result in bidirectional conduction block.This was monitored.No episcopalian of conduction was noted. Upon completion of [...] 100 MG/DL MAIN LAB Performing Organization Address City/State/[facility] Phone Number MAIN LAB [address] [place] [address] in this encounter Visit Diagnoses Diagnosis Typical [...]
--- OUTSIDE RECORDS SUMMARY | 2018-05-29 20:13 | XMS REPORT | Encounter Summary ---
Author Author [facility] Organization [facility] Address Unknown Phone Unavailable Care Team Providers Care Sleeve Maker Name Role Phone Antonio Hawthorne MD PCP Reason for Visit * Reason Comments EP Pre-Procedure 05/28/18 Atrial Flutter using Radiofrequency Ablation Instructions Encounter Details Date Type Department Care Team Description 05/21/2018 Documentation [facility] Cardiology Hailee Greco RN EP Pre-Procedure [facility] 3rd Instructions (05/28/18 fl [address] Atrial Flutter using [address] Radiofrequency Ablation) [place] [address] Social History Tobacco Use Types Packs/Day Years [...] Ordonez. ARRIVAL TIME: Please report to the [facility] admitting office on the ground floor of the [facility] on: 05/28/18 The EP Lab will call to notify you of your arrival time. They will call on the business day prior to your procedure. (If you have any questions regarding your arrival time for the Electrophysiology Lab, please call the EP Lab at [phone].) PRE-PROCEDURE APPOINTMENTS: 05/21 Office visit to update history and physical (requirement within 30 days of procedure) with Dr. Babatunde Ordonez at [facility] Cardiology [facility] 05/21 Pre-Admission lab work: BMP, CBC and Magnesium at the [facility] Cardiology [facility]. SPECIAL MEDICATION INSTRUCTIONS Nothing to eat or [...] your health insurance card(s). Arrange for a delivery route driver to take you home from the [...] [facility] Medication Instructions JASON: Printed on:05/21/18 9992 Medication Information apixaban (ELIQUIS) 5 mg tablet [...]
--- OUTSIDE RECORDS SUMMARY | 2018-05-29 20:14 | XMS REPORT | Continuity of Care Document ---
Author Author [facility] Organization [facility] Address Unknown Phone Unavailable Allergies Active Description Code Type Severity Reaction Onset Reported/Identified Relationship to Patient Clinical Status Yes No Known Drug Allergies [id number] Drug Allergy Unknown N/A 06/24/2012 Medications There [...] CCDS Ot I48.0 08/10/2015 TAINA BROOKE L OIL AND GAS EXPLORATION TECHNICIAN Ot I71.2 08/19/2015 BAIMA, BROOKE L OIL AND GAS EXPLORATION TECHNICIAN Ot I71.2 04/12/2016 ROSE WATKINS APRN Ot [...] PAROXYSMAL ATRIAL FIBRILLATION 09/17/2017 LO HERHER L OIL AND GAS EXPLORATION TECHNICIAN Ot I71.2 THORACIC AORTIC ANEURYSM, WITHOUT RUPTUR [...] PAROXYSMAL ATRIAL FIBRILLATION 09/21/2017 BAIMA, BROOKE L OIL AND GAS EXPLORATION TECHNICIAN Ot I71.2 THORACIC AORTIC ANEURYSM, WITHOUT RUPTUR [...] PAROXYSMAL ATRIAL FIBRILLATION 09/21/2017 BAIMA, BROOKE L OIL AND GAS EXPLORATION TECHNICIAN Ot I71.2 THORACIC AORTIC ANEURYSM, WITHOUT RUPTUR 09/21/2017 ROSE WATKINS APRN Ot R06.00 DYSPNEA, UNSPECIFIED 09/25/2017 TAINA BROOKE L OIL AND GAS EXPLORATION TECHNICIAN Ot I07.1 RHEUMATIC TRICUSPID INSUFFICIENCY 09/25/2017 BAIMA, BROOKE L OIL AND GAS EXPLORATION TECHNICIAN Ot I10 ESSENTIAL (PRIMARY) HYPERTENSION 09/25/2017 BAIMA, BROOKE L OIL AND GAS EXPLORATION TECHNICIAN Ot I34.0 NONRHEUMATIC MITRAL (VALVE) INSUFFICIENC 09/25/2017 BAIMA, BROOKE L OIL AND GAS EXPLORATION TECHNICIAN Ot I35.8 OTHER NONRHEUMATIC AORTIC VALVE DISORDER 09/25/2017 BAIMA, BROOKE L OIL AND GAS EXPLORATION TECHNICIAN Ot I48.92 UNSPECIFIED ATRIAL FLUTTER 09/30/2017 BAIMA, BROOKE L OIL AND GAS EXPLORATION TECHNICIAN Ot I07.1 RHEUMATIC TRICUSPID INSUFFICIENCY 09/30/2017 BAIMA, BROOKE L OIL AND GAS EXPLORATION TECHNICIAN Ot I10 ESSENTIAL (PRIMARY) HYPERTENSION 09/30/2017 BAIMA, BROOKE L OIL AND GAS EXPLORATION TECHNICIAN Ot I34.0 NONRHEUMATIC MITRAL (VALVE) INSUFFICIENC 09/30/2017 BAIMA, BROOKE L OIL AND GAS EXPLORATION TECHNICIAN Ot I35.8 OTHER NONRHEUMATIC AORTIC VALVE DISORDER 09/30/2017 BAIMA, BROOKE L OIL AND GAS EXPLORATION TECHNICIAN Ot I48.92 UNSPECIFIED ATRIAL FLUTTER 10/11/2017 BAIMA, BROOKE L OIL AND GAS EXPLORATION TECHNICIAN Ot I07.1 RHEUMATIC TRICUSPID INSUFFICIENCY 10/11/2017 BAIMA, BROOKE L OIL AND GAS EXPLORATION TECHNICIAN Ot I10 ESSENTIAL (PRIMARY) HYPERTENSION 10/11/2017 BAIMA, BROOKE L OIL AND GAS EXPLORATION TECHNICIAN Ot I34.0 NONRHEUMATIC MITRAL (VALVE) INSUFFICIENC 10/11/2017 BROOKE HER OIL AND GAS EXPLORATION TECHNICIAN Ot I35.8 OTHER NONRHEUMATIC AORTIC VALVE DISORDER 10/11/2017 BROOKE HER OIL AND GAS EXPLORATION TECHNICIAN Ot I48.92 UNSPECIFIED ATRIAL FLUTTER 02/05/2018 BROOKE HER OIL AND GAS EXPLORATION TECHNICIAN Ot I07.1 RHEUMATIC TRICUSPID INSUFFICIENCY 02/05/2018 BROOKE HER OIL AND GAS EXPLORATION TECHNICIAN Ot I10 ESSENTIAL (PRIMARY) HYPERTENSION 02/05/2018 BROOKE HER OIL AND GAS EXPLORATION TECHNICIAN Ot I34.0 NONRHEUMATIC MITRAL (VALVE) INSUFFICIENC 02/05/2018 BROOKE HER OIL AND GAS EXPLORATION TECHNICIAN Ot I35.8 OTHER NONRHEUMATIC AORTIC VALVE DISORDER 02/05/2018 BROOKE HER OIL AND GAS EXPLORATION TECHNICIAN Ot I48.92 UNSPECIFIED ATRIAL FLUTTER 02/05/2018 HEYDI HEAD MD, Ot E11.9 TYPE 2 DIABETES MELLITUS WITHOUT COMPLIC 02/05/2018 HEYDI HEAD MD, Ot G47.30 SLEEP APNEA, UNSPECIFIED 02/05/2018 HEYDI HEAD MD Ot I10 ESSENTIAL (PRIMARY) HYPERTENSION 02/05/2018 HEYDI HAED MD, Ot I48.0 PAROXYSMAL ATRIAL FIBRILLATION 02/05/2018 HEYDI HEAD MD, Ot I48.92 UNSPECIFIED ATRIAL FLUTTER 02/05/2018 HEYDI HEAD MD Ot R00.2 PALPITATIONS 02/05/2018 HEYDI HEAD MD, Ot Z79.01 SNF (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 OF ANTICOAGULANT 02/05/2018 HEYDI HEAD MD Ot Z79.4 SNF (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 OF INSULIN 02/05/2018 HEYDI HEAD [...] PALPITATIONS 02/07/2018 HEYDI HEAD MD Ot Z79.01 SNF (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 OF ANTICOAGULANT 02/07/2018 HEYDI HEAD MD, Ot Z79.4 DEMI CHEF (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 OF INSULIN 02/07/2018 HEYDI HEAD MD, Ot 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, 02/07/2018 HEYDI HEAD MD Ot Z90.89 ACQUIRED ABSENCE OF OTHER ORGANS 02/07/2018 HEYDI HEAD MD Ot Z98.1 ARTHRODESIS STATUS 02/19/2018 BROOKE HER OIL AND GAS EXPLORATION TECHNICIAN Ot I07.1 RHEUMATIC TRICUSPID INSUFFICIENCY 02/19/2018 BROOKE HER OIL AND GAS EXPLORATION TECHNICIAN Ot I10 ESSENTIAL (PRIMARY) HYPERTENSION 02/19/2018 BROOKE HER OIL AND GAS EXPLORATION TECHNICIAN Ot I34.0 NONRHEUMATIC MITRAL (VALVE) INSUFFICIENC 02/19/2018 BROOKE HER OIL AND GAS EXPLORATION TECHNICIAN Ot I35.8 OTHER NONRHEUMATIC AORTIC VALVE DISORDER 02/19/2018 BROOKE HER OIL AND GAS EXPLORATION TECHNICIAN Ot I48.92 UNSPECIFIED ATRIAL FLUTTER 03/13/2018 BROOKE HER L OIL AND GAS EXPLORATION TECHNICIAN Ot I48.92 UNSPECIFIED ATRIAL FLUTTER 03/13/2018 BROOKE HER OIL AND GAS EXPLORATION TECHNICIAN Ot R00.2 PALPITATIONS 03/14/2018 BROOKE HER OIL AND GAS EXPLORATION TECHNICIAN Ot E11.59 TYPE 2 DIABETES MELLITUS WITH OTH CIRCUL 03/14/2018 BROOKE HER L OIL AND GAS EXPLORATION TECHNICIAN Ot I10 ESSENTIAL (PRIMARY) HYPERTENSION 03/14/2018 BROOKE HER OIL AND GAS EXPLORATION TECHNICIAN Ot I48.0 PAROXYSMAL ATRIAL FIBRILLATION 03/14/2018 BROOKE HER OIL AND GAS EXPLORATION TECHNICIAN Ot I71.2 THORACIC AORTIC ANEURYSM, WITHOUT RUPTUR 03/19/2018 YOLY BEARDC, ALI FACP CCDS Ot E11.9 TYPE 2 DIABETES MELLITUS WITHOUT COMPLIC 03/19/2018 YOLY BEARDC, ALI FACP CCDS Ot E66.9 OBESITY, UNSPECIFIED 03/19/2018 YOLY DONOHUE FACC, ALI FACP CCDS Ot G47.33 OBSTRUCTIVE SLEEP APNEA (ADULT) (PEDIATR 03/19/2018 YOLY BEARDC, ALI FACP CCDS Ot I10 ESSENTIAL (PRIMARY) HYPERTENSION 03/19/2018 YLOY DONOHUE FACC, ALI FACP CCDS Ot I35.8 OTHER NONRHEUMATIC AORTIC VALVE DISORDER 03/19/2018 YOLY BEARDC, ALI FACP CCDS Ot I48.92 UNSPECIFIED ATRIAL FLUTTER 03/19/2018 YOLY BEARDC, ALI FACP CCDS Ot I71.4 ABDOMINAL AORTIC ANEURYSM, WITHOUT RUPTU 03/19/2018 YOLY DONOHUE FACC, ALI FACP CCDS Ot Z68.36 BODY MASS INDEX (BMI) 36.0-36.9, ADULT 03/19/2018 YOLY DONOHUE FACC, ALI FACP CCDS Ot Z79.01 SNF (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 OF ANTICOAGULANT 03/19/2018 YOLY DONOHUE FACC, ALI FACP CCDS Ot Z79.4 DEMI CHEF (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 OF INSULIN 03/19/2018 YOLY DONOHUE FACC, ALI FACP CCDS Ot Z79.899 OTHER DEMI CHEF (CURRENT) DRUG THERAPY 03/20/2018 YOLY DONOHUE FACC, [...] FREDERICK MD, FACC FACP CCDS Ot Z79.01 SNF (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 OF ANTICOAGULANT 03/20/2018 JOSE FREDERICK MD, FACC FACP CCDS Ot Z79.4 SNF (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 OF INSULIN 03/20/2018 JOSE FREDERICK MD, FACC FACP CCDS Ot Z79.899 OTHER SNF (CURRENT) DRUG THERAPY 05/02/2018 JOHNATHON NEVILLE TANK FARM OPERATOR Ot M79.662 PAIN IN LEFT LOWER LEG 05/02/2018 JOHNATHON NEVILLE TANK FARM OPERATOR Ot M79.89 OTHER SPECIFIED SOFT TISSUE DISORDERS 05/02/2018 JOHNATHON NEVILLE TANK FARM OPERATOR Ot Z86.79 PERSONAL HISTORY OF OTHER DISEASES OF TH 05/09/2018 JOSE FREDERICK MD, FACC FACP CCDS Ot E11.9 [...] Ot I48.0 PAROXYSMAL ATRIAL FIBRILLATION 05/09/2018 YOLY DOONHUE FACC ALI FACP CCDS Ot I71.2 THORACIC AORTIC ANEURYSM, WITHOUT RUPTUR 05/09/2018 JOSE FREDERICK MD, FACC FACP CCDS Ot R06.09 OTHER FORMS OF DYSPNEA 05/09/2018 JOSE FREDERICK MD, FACC FACP CCDS Ot R60.0 LOCALIZED EDEMA 05/09/2018 YOLY DONOHUE FACC ALI FACP CCDS Ot Z68.36 BODY MASS INDEX (BMI) 36.0-36.9, ADULT 05/09/2018 JOSE FREDERICK MD, FACC FACP CCDS Ot Z79.899 OTHER DEMI CHEF (CURRENT) DRUG THERAPY 05/13/2018 YOLY MD FACC, [...] BEARDC, ALI FACP CCDS Ot Z79.899 OTHER SNF (CURRENT) DRUG THERAPY 05/14/2018 YOLY DONOHUE FACC, [...] DONOHUE FACC, ALI FACP CCDS Ot Z79.01 SNF (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 OF ANTICOAGULANT 05/14/2018 YOLY DONOHUE FACC, ALI FACP CCDS Ot Z79.4 SNF (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 OF INSULIN 05/15/2018 JOHNATHON NEVILLE T[employer] FARM OPERATOR Ot M79.662 PAIN IN LEFT LOWER LEG 05/15/2018 JOHNATHON NEVILLE TANK FARM OPERATOR Ot M79.89 OTHER SPECIFIED SOFT TISSUE DISORDERS 05/15/2018 JOHNATHON NEVILLE TANK FARM OPERATOR Ot Z86.79 PERSONAL HISTORY OF OTHER DISEASES [...] DONOHUE FACC, ALI FACP CCDS Ot Z79.01 DEMI CHEF (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 OF ANTICOAGULANT 05/20/2018 YOLY DONOHUE FACC, ALI FACP CCDS Ot Z79.4 SNF (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 OF INSULIN Procedures There is [...] resistant Staphylococcus aureus (MRSA) screening culture NEG [facility] Automated blood complete blood count [...] VLDL measurement (mass/volume) 17 mg/ dL 5-40 Complete blood count (CBC) with automated white blood cell (WBC) differential - 05/29/18 17:15 Blood leukocytes automated count (number/volume) 12.4 10*3/uL 4.3-11.0 Blood erythrocytes automated count (number/volume) 5.18 10*6/uL 4.35-5.85 Venous blood hemoglobin measurement (mass/volume) 16.0 g/dL 13.3-17.7 Blood hematocrit (volume fraction) 45 % 40-54 Automated erythrocyte mean corpuscular volume 87 [foz_us] 80-99 Automated erythrocyte mean corpuscular hemoglobin (mass per erythrocyte) 31 pg 25-34 Automated erythrocyte mean corpuscular hemoglobin concentration measurement ( mass/volume) 35 g/dL 32-36 Automated erythrocyte distribution width ratio 13.6 % 10.0-14.5 Automated blood platelet count (count/volume) 306 10*3/uL 130-400 Automated blood platelet mean volume measurement 9.3 [foz_us] 7.4-10.4 Automated blood neutrophils/100 leukocytes 70 % 42-75 Automated blood lymphocytes/100 leukocytes 19 % 12-44 Blood monocytes/100 leukocytes 9 % 0-12 Automated blood eosinophils/100 leukocytes 2 % 0-10 Automated blood basophils/100 leukocytes 0 % 0-10 Blood neutrophils automated count (number/volume) 8.7 10*3 1.8-7.8 Blood lymphocytes automated count (number/volume) 2.3 10*3 1.0-4.0 Blood monocytes automated count (number/volume) 1.1 10*3 0.0-1.0 Automated eosinophil count 0.3 10*3/uL 0.0-0.3 Automated blood basophil count (count/volume) 0.0 10*3/uL 0.0-0.1 PT panel in platelet poor plasma by coagulation assay - 05/29/18 17:15 Prothrombin time (PT) in platelet poor plasma by coagulation assay 13.1 s 12.2-14.7 INR in platelet poor plasma or blood by coagulation assay 1.0 0.8-1.4 Activated partial thromboplastin time (aPTT) in platelet poor plasma bycoagulation assay - 05/29/18 17:15 Activated partial thromboplastin time (aPTT) in platelet poor plasma bycoagulation assay 33 s 24-35 Comprehensive metabolic panel - 05/29/18 17:15 Serum or plasma sodium measurement (moles/volume) 137 mmol/L 135-145 Serum or plasma potassium measurement (moles/volume) 4.1 mmol/L 3.6-5.0 Serum or plasma chloride measurement (moles/volume) 101 mmol/L 98-107 Carbon dioxide 28 mmol/L 21-32 Serum or plasma anion gap determination (moles/volume) 8 mmol/L 5-14 Serum or plasma urea nitrogen measurement (mass/volume) 25 mg/dL 7-18 Serum or plasma creatinine measurement (mass/volume) 1.25 mg/dL 0.60-1.30 Serum or plasma urea nitrogen/creatinine mass ratio 20 NRG Serum or plasma creatinine measurement with calculation of estimated glomerular filtration rate 59 NRG Serum or plasma glucose measurement (mass/volume) 193 mg/dL 70-105 Serum or plasma calcium measurement (mass/volume) 9.2 mg/dL 8.5-10.1 Serum or plasma total bilirubin measurement (mass/volume) 0.5 mg/dL 0.1-1.0 Serum or plasma alkaline phosphatase measurement (enzymatic activity/volume) 112 U/L 40-136 Serum or plasma aspartate aminotransferase measurement (enzymatic activity/ volume) 33 U/L 5-34 Serum or plasma alanine aminotransferase measurement (enzymatic activity/volume ) 34 U/L 0-55 Serum or plasma protein measurement (mass/volume) 6.7 g/dL 6.4-8.2 Serum or plasma albumin measurement (mass/volume) 4.3 g/dL 3.2-4.5 CALCIUM CORRECTED 9.0 mg/dL 8.5-10.1 Magnesium - 05/29/18 17:15 Magnesium 2.2 mg/dL 1.8-2.4 Serum or plasma troponin i.cardiac measurement (mass/volume) - 05/29/18 17:15 Serum or plasma troponin i.cardiac measurement (mass/volume) 0.32 ng /mL <0.30 Myoglobin, serum - 05/29/18 17:15 Myoglobin, serum 65.3 ng/mL 10.0-92.0 Serum or plasma lithium measurement (moles/volume) - 05/29/18 17:15 BNP level 23.8 pg/mL <100.0 Fibrin D-dimer FEU measurement in platelet poor plasma (mass/volume) - 17:45 Fibrin D-dimer FEU measurement in platelet poor plasma (mass/volume) 0.30 ug/mL 0.00-0.49 Encounters ACCT No. Visit Date/Time Discharge Status Pt. Type Provider Facility Loc./Unit Complaint [id number] 05/14/2018 06:51:00 05/14/2018 13:40:00 DIS Outpatient JOSE FREDERICK MD, FACC, FACP CCDS [facility] SOB,A FLUTTER ,HTN,DM,FATIGUE,ANGINA [id number] 05/07/2018 09:41:00 05/07/2018 15:15:00 DIS Outpatient JOSE FREDERICK MD, FACC, FACP CCDS [facility] CATH AFIB [id number] 05/01/2018 09:15:00 05/01/2018 23:59:59 CLS Outpatient JOHNATHON NEVILLE APRN [facility] CARD I49.9 IRREGULAR HEART BEAT [id number] 03/19/2018 09:02:00 03/19/2018 14:00:00 DIS Outpatient JOSE FREDERICK MD, FACC, FACP CCDS [facility] CATH ATRIAL FLUTTER,HTN [id number] 03/12/2018 07:33:00 03/12/2018 23:59:59 CLS Outpatient BAIDARIELA, BROOKE L OIL AND GAS EXPLORATION TECHNICIAN [facility] CARD PALPITATIONS, PAROXYSMAL ATRIAL FLUTTER [id number] 02/21/2018 14:51:00 02/21/2018 23:59:59 CLS Outpatient BAIDARIELA BROOKE L OIL AND GAS EXPLORATION TECHNICIAN [facility] CARD AFIB,HTN, ASCENDING AORTIC ANEURYSM [id number] 02/05/2018 08:24:00 02/05/2018 10:44:00 DIS Emergency HEYDI HEAD MD [facility] ER FLUTTERING IN CHEST [id number] 09/24/2017 11:46:00 09/24/2017 23:59:59 CLS Outpatient TAINA BROOKE L OIL AND GAS EXPLORATION TECHNICIAN [facility] CARD I48.92 PAROXYSMAL ATRIAL FLUTTER [id number] 04/10/2016 15:17:00 04/10/2016 23:59:59 CLS Outpatient ROSE WATKINS APRN [facility] RT DYSPNEA [id number] 07/27/2015 14:14:00 07/27/2015 23:59:59 CLS Outpatient TAINA BROOKE L OIL AND GAS EXPLORATION TECHNICIAN [facility] RAD ANEURYSM OF THE AORTA [id number] 07/13/2015 08:31:00 07/13/2015 23:59:59 CLS Outpatient JOSE FREDERICK MD, FACC, FACP CCDS [facility] CARD AFIB [id number] 05/01/2015 19:30:00 05/03/2015 19:38:00 DIS Inpatient SULAIMAN CARRINGTON MD [facility] ICU A-FLUTTER,RVR,CHEST PAIN [id number] 05/29/2018 17:26:00 Document Registration [id number] 06/24/2012 09:04:00 Document Registration [id number] 06/21/2012 08:23:00 Document Registration [id number] 10/26/2010 11:05:00 Document Registration
--- OUTSIDE RECORDS SUMMARY | 2018-05-29 20:14 | XMS REPORT | Encounter Summary ---
Author Author [facility] Organization [facility] Address Unknown Phone Unavailable Care Team Providers Care Ultrasonic Seaming Machine Operator Name Role Phone Antonio Hawthorne MD PCP Reason for Referral * (Routine) Status Reason Specialty Diagnoses / Referred By Referred To Procedures Contact Contact New Request Procedures Babatunde Ordonez, REQUEST FOR MD CARDIOLOGY [address] [place] [address] Reason for Visit * Reason Comments New Patient referred by Dr. Anusha Valencia Atrial fibrillation possible ablation Encounter Details Date Type Department Care Team Description 05/21/2018 Office Visit [facility] Card[facility] Babatunde Ordonez MD New Patient (referred by [facility] 3rd [address] Anusha Valencia); Atrial fl [address] fibrillation (possible [address] [place] [address] ablation) [place], [place] [address] Social History Tobacco Use Types Packs/Day Years [...] Ablation and Cardioversion Follow up with Dr Ordonez 3 months see pre procedure instructions In order to provide you the best care possible we ask that you follow up as below: For NON-URGENT questions please contact us through your [employer] account. For all medication refills please contact your pharmacy or send a request through [employer]. For all questions that may need to be addressed urgently please call the nursing triage line at [phone] Sunday - Sunday 8-5 only. Please leave a detailed message with your name, date of , and reason for your call. To schedule an appointment call [phone]. Please allow 10-15 business days for the [...] Organization Address City/State/Zipcode Phone Number [facility] [employer] [address] [address] [facility] [place] [address] * ECG/QRS (05/21/2018 10:12 AM) QRS DURATION 90 OTHER OUTSIDE LAB Performing Organization Address City/State/Zipcode Phone Number OTHER OUTSIDE LAB in this encounter Visit Diagnoses Diagnosis Typical atrial flutter (HCC) - Primary Atrial flutter Essential hypertension Unspecified essential hypertension Paroxysmal atrial fibrillation (HCC) Atrial fibrillation
--- OUTSIDE RECORDS SUMMARY | 2018-05-29 20:14 | XMS REPORT | Encounter Summary ---
Author Author [facility] Organization [facility] Address Unknown Phone Unavailable Care Team Providers Care Executive Secretary Name Role Phone No Pcp, Na PCP Unavailable Reason for Visit * Reason Comments New Patient Encounter Details Date Type Department Care Team Description 05/17/2018 Patient Profile [facility] Carmina Quintanilla New Patient [facility] [place] [address] Social History Tobacco Use Types Packs/Day Years Used Date Never Assessed Sex Assigned at Date Recorded Not on file as of this encounter Progress Notes * Camrina Quintanilla - 05/17/2018 10:31 AM CDT Unable to reach pt. At the moment there is no phone number available in chart to call patient. 05/17/18 in this encounter Plan of Treatment Not on fileas of this encounter Visit Diagnoses Not on filein this encounter
[2018-05-29 20:45] VITALS: BP 144/84
[2018-05-29] MEDS ORDERED: KETOROLAC 15 MG/ML VIAL IV PRN (21:30)
[2018-05-29] MEDS ORDERED: morphine INJ 4 MG/ML 1 ML (VIAL/SYRINGE) IV PRN (21:30)
[2018-05-29] MEDS ORDERED: ONDANSETRON 4 MG/2 ML (SDV) Z0FRAN IV PRN (21:30)
[2018-05-29] MEDS ORDERED: ACETAMINOPHEN 500 MG TAB (TYLENOL) PO PRN (21:30)
[2018-05-29] MEDS: NS IV 1000 ML 1,000 ML IV SCH (21:37)
[2018-05-29 23:52] VITALS: BP 124/74
[2018-05-30 04:08] VITALS: BP 117/70
[2018-05-30 06:00] LABS: BASOPHILS % (AUTO) 0 % (0-10); EOSINOPHILS # (AUTO) 0.2 10^3/uL (0.0-0.3); EOSINOPHILS % (AUTO) 2 % (0-10); HEMATOCRIT 43 % (40-54); HEMOGLOBIN 14.7 G/DL (13.3-17.7); LYMPHOCYTES # (AUTO) 1.3 X 10^3 (1.0-4.0); LYMPHOCYTES % (AUTO) 13 % (12-44); MEAN CORPUSCULAR HEMOGLOBIN 30 PG (25-34); MEAN CORPUSCULAR HGB CONC 34 G/DL (32-36); MEAN CORPUSCULAR VOLUME 87 FL (80-99); MEAN PLATELET VOLUME 9.5 FL (7.4-10.4); MONOCYTES # (AUTO) 1.1 X 10^3 (0.0-1.0); MONOCYTES % (AUTO) 11 % (0-12); NEUTROPHILS # (AUTO) 7.4 X 10^3 (1.8-7.8); NEUTROPHILS % (AUTO) 75 % (42-75); PLATELET COUNT 287 10^3/uL (130-400); RED BLOOD COUNT 4.92 10^6/uL (4.35-5.85); RED CELL DISTRIBUTION WIDTH 13.8 % (10.0-14.5); WHITE BLOOD COUNT 9.9 10^3/uL (4.3-11.0)
[2018-05-30] MEDS ORDERED: inSUlin ASPART (NovoLOG) 1 UNIT/0.01 ML (CHARGE PER UNIT) SC SCH (06:00)
[2018-05-30 06:25] LABS: BUN/CREATININE RATIO 28; CARBON DIOXIDE 23 MMOL/L (21-32); CHLORIDE 106 MMOL/L (98-107); CREATININE SERUM 1.02 MG/DL (0.60-1.30); GFR ESTIMATED > 60; GLUCOSE 133 MG/DL (70-105); POTASSIUM 4.4 MMOL/L (3.6-5.0); SODIUM 139 MMOL/L (135-145)
[2018-05-30 06:29] LABS: CHOLESTEROL 183 MG/DL (< 200); HDL CHOLESTEROL 44 MG/DL (40-60); TRIGLYCERIDES 55 MG/DL (<150); VLDL CHOLESTEROL 11 MG/DL (5-40)
[2018-05-30] MEDS ORDERED: FLU QUADRIvalent (5+ YOA) 2018-2019 (AFLURIA) 0.5 ML IM ONE (07:30)
[2018-05-30 07:35] VITALS: BP 126/75
--- NOTE | 2018-05-30 08:50 | Consultation-Cardiology ---
HPI-Cardiology Cardiology Consultation: Date of Consultation 05/30/18 Time Seen by a Provider: 08:30 Date of Admission Attending Physician Antonio Hawthorne MD Admitting Physician Antonio Hawthorne MD Consulting Physician JOSE FREDERICK MD, MA, FACP, FACC, FSCAI, CCDS HPI: Chief Complaint: CC: Chest pain with taking a breath in 57 yo man who had A Fl ablation with Dr Ordonez at [facility] on 04/27/18. Left [facility] with some chest soreness yesterday and developed chest pain last night which was much worse with inspiration, was severe, lasted several hours, was not relieved by NTG in the ER, but did respond quite well to iv morphine. Does not report shortness of breath otherwise. Denies palp or syncope or leg swelling or fever or chills. Notes some gen malaise Review of Systems-Cardiology Review of Systems Constitutional: malaise; No weight loss, No weight gain Eyes: No vision change Ears/Nose/Throat: No ear discharge, No nasal drainage, No recent hearing loss Respiratory: As described under HPI Cardiovascular: As described under HPI Gastrointestinal: No constipation, No diarrhea, No nausea, No vomiting Genitourinary: No dysuria, No hematuria Musculoskeletal: back pain (chronic) Skin: No rash, No ulcerations Psychiatric/Neurological: No seizure, No focal weakness, No syncope Hematologic: No bleeding abnormalities ORG-Xqbiub-Qcizky Hx Patient Social History Alcohol Use: Denies Use Recreational Drug Use: No Smoking Status: Never a Smoker Recent Foreign Travel: No Recent Infectious Disease Expo: No Hospitalization with Isolation: Denies Physical Abuse Screen: No Sexual Abuse: No Immunizations Up To Date Date of Pneumonia Vaccine: Mar 19, 2015 Past Medical History PMH As described under Assessment. Family Medical History Family History: Diabetes mellitus 19 MOTHER Lip cancer 19 FATHER Parkinson's disease 19 FATHER Allergies and Home Medications Allergies Coded Allergies: No Known Drug Allergies (Unverified , 06/24/12) Home Medications Alprazolam 0.5 Mg Tablet, 0.5 MG PO TID PRN for ANXIETY, (Reported) Apixaban 5 Mg Tablet, 5 MG PO BID, (Reported) Diltiazem HCl 180 Mg Cap.er.24h, 180 MG PO DAILY, (Reported) Escitalopram Oxalate 10 Mg Tablet, 10 MG PO HS, (Reported) Metoprolol Succinate 25 Mg Tab.er.24h, 25 MG PO DAILY, (Reported) Niacin (Inositol Niacinate) 500 Mg Capsule, 1,000 MG PO DAILY, (Reported) TAKES 2 (500MG) CAPSULES Patient Home Medication List Home Medication List Reviewed: Yes Physical Exam-Cardiology Physical Exam Vital Signs/I&O 05/29/18 05/29/18 05/30/18 05/30/18 20:45 23:52 01:19 04:08 Temp 97.1 98.2 97.5 Pulse 72 77 72 73 Resp 18 18 18 B/P (MAP) 144/84 (104) 124/74 (91) 117/70 (86) Pulse Ox 94 94 95 O2 Delivery Room Air Room Air Room Air 05/30/18 05/30/18 07:00 07:35 Temp 96.9 Pulse 70 73 Resp 18 B/P (MAP) 126/75 (92) Pulse Ox 95 O2 Delivery Room Air 05/30/18 00:00 Intake Total 222 ml Balance 222 ml Capillary Refill : Less Than 3 Seconds Constitutional: AAO x 3; No apparent distress; well-developed, well-nourished HEENT: EOMI; No xanthelasmas are seen Neck: carotid pulses are 2 + bilaterally, with good upstrokes Respiratory: No accessory muscle use; lungs clear to percussion, lungs clear to auscultation Cardiovascular: regular rate-rhythm, S1 and S2, systolic murmur (soft KRISTINE at card base) Gastrointestinal: No tender; soft; No guarding, No rebound; audible bowel sounds Extremities: No clubbing, No cyanosis, No significant edema Neurologic/Psychiatric: oriented x 3, grossly intact, power is 5/5 both on sides Skin: No rash on exposed areas, No ulcerations on exposed areas Data Review Labs Laboratory Tests 05/29/18 17:15: White Blood Count 12.4H, Red Blood Count 5.18, Hemoglobin 16.0, Hematocrit 45, Mean Corpuscular Volume 87, Mean Corpuscular Hemoglobin 31, Mean Corpuscular Hemoglobin Concent 35, Red Cell Distribution Width 13.6, Platelet Count 306, Mean Platelet Volume 9.3, Neutrophils (%) (Auto) 70, Lymphocytes (%) (Auto) 19, Monocytes (%) (Auto) 9, Eosinophils (%) (Auto) 2, Basophils (%) (Auto) 0, Neutrophils # (Auto) 8.7H, Lymphocytes # (Auto) 2.3, Monocytes # (Auto) 1.1H, Eosinophils # (Auto) 0.3, Basophils # (Auto) 0.0, Prothrombin Time 13.1, INR Comment 1.0, Activated Partial Thromboplast Time 33, Sodium Level 137, Potassium Level 4.1, Chloride Level 101, Carbon Dioxide Level 28, Anion Gap 8, Blood Urea Nitrogen 25H, Creatinine 1.25, Estimat Glomerular Filtration Rate 59 , BUN/Creatinine Ratio 20, Glucose Level 193H, Calcium Level 9.2, Corrected Calcium 9.0, Magnesium Level 2.2, Total Bilirubin 0.5, Aspartate Amino Transf ( AST/SGOT) 33, Alanine Aminotransferase (ALT/SGPT) 34, Alkaline Phosphatase 112, Myoglobin 65.3, Troponin I 0.32*H, B-Type Natriuretic Peptide 23.8, Total Protein 6.7, Albumin 4.3 05/29/18 17:45: D-Dimer 0.30 05/30/18 05:25: White Blood Count 9.9, Red Blood Count 4.92, Hemoglobin 14.7, Hematocrit 43, Mean Corpuscular Volume 87, Mean Corpuscular Hemoglobin 30, Mean Corpuscular Hemoglobin Concent 34, Red Cell Distribution Width 13.8, Platelet Count 287, Mean Platelet Volume 9.5, Neutrophils (%) (Auto) 75, Lymphocytes (%) (Auto) 13, Monocytes (%) (Auto) 11, Eosinophils (%) (Auto) 2, Basophils (%) (Auto) 0, Neutrophils # (Auto) 7.4, Lymphocytes # (Auto) 1.3, Monocytes # (Auto) 1.1H, Eosinophils # (Auto) 0.2, Basophils # (Auto) 0.0, Sodium Level 139, Potassium Level 4.4, Chloride Level 106, Carbon Dioxide Level 23, Anion Gap 10, Blood Urea Nitrogen 29H, Creatinine 1.02, Estimat Glomerular Filtration Rate > 60, BUN /Creatinine Ratio 28, Glucose Level 133H, Calcium Level 9.0, Triglycerides Level 55, Cholesterol Level 183, LDL Cholesterol Direct 135H, VLDL Cholesterol 11, HDL Cholesterol 44 05/30/18 05:36: Glucometer 131H Laboratory Tests 05/29/18 17:15 05/30/18 05:25 A/P-Cardiology Assessment/Admission Diagnosis Chest pain: suspected post-ablation pericarditis. No pericard eff on echo of ; no PE on pulm CT angio of 05/29/18 Typical atrial flutter treated with ablation by Dr Ordonez at [facility] on 05/28/18 Bilat LE edema, worse when he has been on his feet, improves overnight MPI of March 12, 2018 showed no evidence of myocardial ischemia or infarction. LVEF 58%. A-flutter with RVR throughout the study Card cath on 05/14/18 (done because of continuing marked symptoms): minimal CAD, LVEF 60%, elevated LVEDP, no significant MR or AI 24 Hour Holter of February 21, 2018 showed a-fib/flutter throughout the study with aver ventricular rate of 99 bpm. No VT or significant bradycardia TSH Aug 2017 - 2.081 Echocardiogram from September 2017 showed LVEF 55-60%. Aortic valve sclerosis without significant aortic stenosis. Mild to mod enlargement of the ascending aorta measuring up to 4.[address] Angio of the chest from July 27, 2015 showed an ascending aortic aneurysm 4.3cm in the mid ascending aorta and 5 cm at the aortic sinus level. This has been evaluated by and is being followed by Dr Mobley of the CV Service at [facility], [place], [place] (pt last saw him and repeated CT angio in Sep 2017, according to Mr Mulligan) Hypertension DM II Obesity with BMI approx 38 NANNETTE - CPAP tx Chronic bilat leg swelling, likely related to venous insuff Discussion and Recomendations * I had a long and detailed discussion with him and his * I reviewed studies done during this hosp * I called Dr Ordonez at [facility] and discussed the case with him * Plan to treat as pericarditis (although no ECG or echo evidence of such) with colchicine and NSAIDs * Keep on tele for now Clinical Quality Measures AMI/AHF: ASA po Prior to arrival: No DVT/VTE Risk/Contraindication: Risk Factor Score Per Nursin RFS Level Per Nursing on Admit: 3=High JOSE FREDERICK MD FACP [facility] CCDS May 30, 2018 08:50
[2018-05-30] MEDS ORDERED: IBUPROFEN 600 MG (MOTRIN) TAB PO NR (09:00)
[2018-05-30] MEDS ORDERED: DILT180C PO (09:29)
[2018-05-30] MEDS ORDERED: INSU100I29 SC (09:29)
[2018-05-30] MEDS ORDERED: INSU100I14 SC (09:29)
[2018-05-30] MEDS ORDERED: METF-399 PO (09:29)
[2018-05-30] MEDS ORDERED: METO50CA PO (09:29)
[2018-05-30] MEDS ORDERED: METO-370 PO (09:33)
[2018-05-30] MEDS ORDERED: ALPRAZolam 0.5 MG (XANAX) TAB PO PRN (09:45)
[2018-05-30] MEDS: COLCHICINE 0.6 MG (COLCRYS) TABLET PO SCH (09:50)
--- NOTE | 2018-05-30 10:05 | History & Physical-Hospitalist ---
JACKELIN PHIPPS MED STUDENT 05/30/18 1005: History of Present Illness HPI/Chief Complaint CC: chest pain HPI: This patient is a 57 yo white male who presented to the ER with sharp, crushing chest pain that is exacerbated when he tries to take a deep breath. He has an extensive cardiology history including R atrial ablation for atrial fibrillation 2 days [address] Grant at [facility]. He described a chest pain leaving at discharge after this procedure and said it started as dull and achy (which an HOOK PULLER told him at discharge is normal after ablation) and gradually progressed to the sharp 10/10 pain he presented with to the ER. 2 weeks ago this patient was seen by Dr. Valencia who performed a cardiac catheterization and found minimal CAD. He also receives annual CTA in [place] with Dr. Sanchez to monitor ascending aorta dilation, the most recent study was Aug 2017 and showed to change when compared to previous studies. The industrial economics teacher delivery lead at [facility] was contacted and it was suggested that this patient be monitored overnight and have an echo. Echo was not indicative of effusion. Source: patient Exam Limitations: no limitations Date Seen 05/30/18 Time Seen by a Provider: 08:00 Attending Physician Antonio Hawthorne MD PCP Antonio Hawthorne MD Referring Physician BAYRON ADAIR MD Date of Admission May 29, 2018 at 20:08 Home Medications & Allergies Home Medications Reviewed patient Home Medication Reconciliation performed by pharmacy medication reconciliations anaesthetic technician and/or nursing. Patients Allergies have been reviewed. Allergies Allergies Coded Allergies No Known Drug Allergies (Vonutktqpg21/22/12) Past Hiztkzy-Buvjrx-Mqjpkp Hx Past Med/Social Hx: Reviewed Nursing Past Med/Soc Hx Patient Social History Marrital Status: Number of Children: 2 Number of living children: 2 Employed/Student: employed ([employer]) Alcohol Use: Denies Use Recreational Drug Use: No Smoking Status: Never a Smoker Physical Abuse Screen: No Sexual Abuse: No Recent Foreign Travel: No Contact w/other who traveled: No Recent Infectious Disease Expo: No Immunizations Up To Date Date of Pneumonia Vaccine: Mar 19, 2015 Seasonal Allergies Seasonal Allergies: No Past Medical History Surgeries: Orthopedic Respiratory: Sleep Apnea Currently Using CPAP: Yes Cardiac: Atrial Fibrillation, Hypertension Reproductive: No Endocrine: Diabetes, Insulin dep Are Your Blood Sugars Over 250: No Psychosocial: Anxiety History of Blood Disorders: No Family History Reviewed Nursing Family Hx Diabetes mellitus 19 MOTHER Lip cancer 19 FATHER Parkinson's disease 19 FATHER Diabetes Review of Systems Constitutional: no symptoms reported EENTM: no symptoms reported Respiratory: no symptoms reported Cardiovascular: chest pain, edema Gastrointestinal: no symptoms reported Genitourinary: no symptoms reported Musculoskeletal: no symptoms reported Skin: no symptoms reported Psychiatric/Neurological: No Symptoms Reported Physical Exam Physical Exam Vital Signs Vital Signs - First Documented 05/29/18 17:07 Temp 99.9 Pulse 77 Resp 20 B/P (MAP) 161/89 (113) Pulse Ox 96 O2 Delivery Nasal Cannula O2 Flow Rate 4.00 Capillary Refill : Less Than 3 Seconds Height, Weight, BMI Height: 6'1.00" Weight: 273lbs. 1.0oz. 123.568287mc; 36.0 BMI Method:Stated General Appearance: No Apparent Distress, WD/WN, Anxious HEENT: Normal ENT Inspection Neck: Full Range of Motion, Normal Inspection, Non Tender, Supple Respiratory: Chest Non Tender, Lungs Clear, Normal Breath Sounds, No Accessory Muscle Use, No Respiratory Distress Cardiovascular: Regular Rate, Rhythm, No Gallop, No JVD, No Murmur, Normal Peripheral Pulses Gastrointestinal: Non Tender, Soft Extremity: Normal Capillary Refill, Normal Inspection, Normal Range of Motion, Non Tender, No Calf Tenderness Neurologic/Psychiatric: Alert, Oriented x3, No Motor/Sensory Deficits, Normal Mood/Affect Skin: Normal Color, Warm/Dry Lymphatic: No Adenopathy Results Results/Procedures Labs Laboratory Tests 05/29/18 17:15 05/30/18 05:25 Patient resulted labs reviewed. Assessment/Plan Admission Diagnosis Chest Pain, Pericarditis Admission Status: Observation Assessment and Plan Assessment: Chest pain echo showed no evidence of effusion being followed by cardiology Plan: antiinflammatory pain management trend troponins Diagnosis/Problems Diagnosis/Problems (1) Chest pain Status: Acute Qualifiers: Chest pain type: unspecified Qualified Codes: R07.9 - Chest pain, unspecified (2) DM Status: Chronic (3) HTN (hypertension) Status: Chronic Qualifiers: Hypertension type: essential hypertension Qualified Codes: I10 - Essential (primary) hypertension (4) SOB (shortness of breath) Status: Acute Clinical Quality Measures AMI/AHF: ASA po Prior to arrival: No DVT/VTE Risk/Contraindication: Risk Factor Score Per Nursin RFS Level Per Nursing on Admit: 3=High LUIS EDUARDO KUNZ DO 05/30/18 1032: History of Present Illness HPI/Chief Complaint CC: Chest pain worse when deep breathing HPI: This is a 57yoWM clinic patient of Dr Campbell who was just DC from [facility] s/ p successful atrial ablation for AF who presented to the ER with severe chest pain. Work up ensued which revealed stable labs and expected subtle elevation of troponin as expected after ablation procedure. [facility] recommended observation and Cardiology consultation and IV Toradol and pain control. Source: patient, family, RN/MD Exam Limitations: no limitations Time Seen by a Provider: 08:45 Home Medications & Allergies Home Medications Reviewed Past Bavjdkf-Nwuyln-Baxzrw Hx Past Med/Social Hx: Reviewed Nursing Past Med/Soc Hx, Reviewed and Corrections made Patient Social History Marrital Status: Employed/Student: employed ([employer]) Alcohol Use: Denies Use Smoking Status: Never a Smoker Past Medical History Surgeries: Orthopedic Respiratory: Sleep Apnea Currently Using CPAP: Yes Cardiac: Atrial Fibrillation, High Cholesterol, Hypertension Endocrine: Diabetes, Insulin dep Psychosocial: Anxiety, Depression Family History Diabetes mellitus 19 MOTHER Lip cancer 19 FATHER Parkinson's disease 19 FATHER Diabetes Review of Systems Constitutional: weakness EENTM: no symptoms reported Respiratory: short of breath Cardiovascular: chest pain, edema Gastrointestinal: no symptoms reported Genitourinary: no symptoms reported Musculoskeletal: no symptoms reported Skin: no symptoms reported Psychiatric/Neurological: No Symptoms Reported All Other Systems Reviewed Negative Unless Noted: Yes Physical Exam Physical Exam General Appearance: No Apparent Distress, WD/WN, Anxious, Chronically ill, Obese Eyes: Bilateral Eye Normal Inspection, Bilateral Eye PERRL HEENT: PERRL/EOMI, TMs Normal, Normal ENT Inspection, Pharynx Normal Neck: Full Range of Motion, Normal Inspection, Non Tender, Supple, Carotid Bruit Respiratory: Chest Non Tender, Lungs Clear, Normal Breath Sounds, No Accessory Muscle Use, No Respiratory Distress Cardiovascular: Regular Rate, Rhythm, No Edema, No Gallop, No JVD, No Murmur, Normal Peripheral Pulses Gastrointestinal: Normal Bowel Sounds, No Organomegaly, No Pulsatile Mass, Non Tender, Soft Back: Normal Inspection, No CVA Tenderness, No Vertebral Tenderness Extremity: Normal Capillary Refill, Normal Inspection, Normal Range of Motion, Non Tender, No Calf Tenderness, No Pedal Edema Neurologic/Psychiatric: Alert, Oriented x3, No Motor/Sensory Deficits, Normal Mood/Affect Skin: Normal Color, Warm/Dry Lymphatic: No Adenopathy Assessment/Plan Admission Diagnosis Acute pericarditis Recent ablation at [facility] yesterday for atrial fibrillation NANNETTE DM HTN HLP Anxiety Monitor closely Anti-inflammatories Pain meds Ambulate HLIVF Home meds Admission Status: Observation Diagnosis/Problems Diagnosis/Problems (1) Pericarditis Status: Acute Qualifiers: Pericarditis type: unspecified type Chronicity: acute Qualified Codes: I30.9 - Acute pericarditis, unspecified (2) SOB (shortness of breath) Status: Acute (3) Chest pain Status: Acute Qualifiers: Chest pain type: unspecified Qualified Codes: R07.9 - Chest pain, unspecified (4) HTN (hypertension) Status: Chronic Qualifiers: Hypertension type: essential hypertension Qualified Codes: I10 - Essential (primary) hypertension (5) DM Status: Chronic (6) NANNETTE on CPAP Status: Chronic (7) Anxiety Status: Chronic (8) Depression Status: Chronic Qualifiers: Depression Type: unspecified Qualified Codes: F32.9 - Major depressive disorder, single episode, unspecified (9) Obesity Status: Chronic Qualifiers: Obesity type: due to excess calories Obesity classification: adult class 2 (BMI 35 - 39.9) Serious obesity comorbidity presence: with serious comorbidity Body mass index: BMI 36.0-36.9 Qualified Codes: E66.01 - Morbid (severe) obesity due to excess calories; Z68.36 - Body mass index (bmi) 36.0- 36.9, adult (10) AFLUTTER Status: Resolved JACKELIN PHIPPS MED STUDENT May 30, 2018 10:05 LUIS EDUARDO KUNZ DO May 30, 2018 10:32
[2018-05-30] MEDS ORDERED: PATIENT MAY USE OWN MEDS, ALL MC SCH (10:30)
[2018-05-30] MEDS: INSULIN ASPART 100 UNIT/ML SC SCH ×2 (11:33→17:00)
[2018-05-30 12:00] VITALS: BP 119/70
[2018-05-30] MEDS: IBUPROFEN 600 MG (MOTRIN) TAB PO SCH ×2 (13:16→18:16)
[2018-05-30] MEDS: inSUlin ASPART (NovoLOG) 1 UNIT/0.01 ML (CHARGE PER UNIT) SC SCH ×2 (14:39→19:55)
[2018-05-30 15:22] VITALS: BP 121/70
[2018-05-30] MEDS: NS IV 1000 ML 1,000 ML IV SCH (15:31)
[2018-05-30 19:54] VITALS: BP 122/72
[2018-05-30] MEDS: APIXABAN 5 MG (ELIQUIS) TABLET PO SCH (20:45)
[2018-05-30] MEDS ORDERED: INSULIN DETEMIR 100 UNIT/ML SC SCH (21:00)
[2018-05-30] MEDS ORDERED: meTOproloL SUCCINATE 50 MG (TOPROL XL) TAB PO SCH (21:00)
[2018-05-30] MEDS ORDERED: Escitalopram Oxalate 10 MG PO SCH (21:00)
[2018-05-30] MEDS ORDERED: inSUlin DETERMIR 1 UNIT/0.01 ML (LEVEMIR) CHARGE PER UNIT SQ SCH (21:00)
[2018-05-31] VITALS: BP 115/67
[2018-05-31 04:00] VITALS: BP 130/78
[2018-05-31] MEDS: inSUlin ASPART (NovoLOG) 1 UNIT/0.01 ML (CHARGE PER UNIT) SC SCH ×3 (05:44→10:17)
[2018-05-31 08:00] VITALS: BP 139/74
[2018-05-31] MEDS: COLCHICINE 0.6 MG (COLCRYS) TABLET PO SCH (08:22)
[2018-05-31] MEDS: IBUPROFEN 600 MG (MOTRIN) TAB PO SCH (08:22)
[2018-05-31] MEDS: INSULIN ASPART 100 UNIT/ML SC SCH (08:23)
[2018-05-31] MEDS: APIXABAN 5 MG (ELIQUIS) TABLET PO SCH (08:24)
[2018-05-31] MEDS ORDERED: NIACIN 500 MG PO SCH (09:00)
[2018-05-31] MEDS ORDERED: DILTIAZEM 180 MG (CARDIZEM CD) CAP PO SCH (09:00)
--- NOTE | 2018-05-31 09:19 | Progress Note-Cardiology ---
Cardiology SOAP Progress Note Subjective: Feels well. No cp or palp or syncope or shortness of breath. Wishes to go home Objective: I&O/Vital Signs 05/31/18 05/31/18 05/31/18 05/31/18 00:00 01:00 04:00 07:00 Temp 97.3 97.6 Pulse 65 72 71 62 Resp 18 16 B/P (MAP) 115/67 (83) 130/78 (95) Pulse Ox 92 97 O2 Delivery NIV CPAP NIV CPAP 05/31/18 05/31/18 07:30 08:00 Temp 97.0 Pulse 72 Resp 18 B/P (MAP) 139/74 (95) Pulse Ox 95 O2 Delivery Room Air Room Air 05/31/18 00:00 Intake Total 2150 ml Balance 2150 ml Weight (Pounds): 273 Weight (Ounces): 1.0 Weight (Calculated Kilograms): 123.527683 Constitutional: AAO x 3; No apparent distress; well-developed, well-nourished Respiratory: No accessory muscle use; lungs clear to percussion, lungs clear to auscultation Cardiovascular: regular rate-rhythm, S1 and S2, systolic murmur (soft KRISTINE at card base) Gastrointestional: No tender; soft; No guarding, No rebound; audible bowel sounds Extremities: No clubbing, No cyanosis, No significant edema Neurologic/Psychiatric: oriented x 3, grossly intact, power is 5/5 both on sides Skin: No rash on exposed areas, No ulcerations on exposed areas Results/Procedures: Labs Laboratory Tests 05/30/18 14:23: Glucometer 153H 05/30/18 19:52: Glucometer 226H 05/31/18 05:42: Glucometer 67L Laboratory Tests 05/29/18 17:15 05/30/18 05:25 A/P: Assessment: Chest pain: suspected post-ablation pericarditis. No pericard eff on echo of ; no PE on pulm CT angio of 05/29/18. Symptoms now completely resolved Typical atrial flutter treated with ablation by Dr Ordonez at [facility] on 05/28/18 Bilat LE edema, worse when he has been on his feet, improves overnight MPI of March 12, 2018 showed no evidence of myocardial ischemia or infarction. LVEF 58%. A-flutter with RVR throughout the study Card cath on 05/14/18 (done because of continuing marked symptoms): minimal CAD, LVEF 60%, elevated LVEDP, no significant MR or AI 24 Hour Holter of February 21, 2018 showed a-fib/flutter throughout the study with aver ventricular rate of 99 bpm. No VT or significant bradycardia TSH Aug 2017 - 2.081 Echocardiogram from September 2017 showed LVEF 55-60%. Aortic valve sclerosis without significant aortic stenosis. Mild to mod enlargement of the ascending aorta measuring up to 4.[address] Angio of the chest from July 27, 2015 showed an ascending aortic aneurysm 4.3cm in the mid ascending aorta and 5 cm at the aortic sinus level. This has been evaluated by and is being followed by Dr Mobley of the CV Service at [place], [place] (pt last saw him and repeated CT angio in Sep 2017, according to Mr Ese) Hypertension DM II Obesity with BMI approx 38 NANNETTE - CPAP tx Chronic bilat leg swelling, likely related to venous insuff Plan: * We discussed his CV issues * Advised continuation of NSAIDs for a week, if tolerated * Return to ER in case of recurrence of symptoms or new symptoms * Outpt f/u advised Clinical Quality Measures AMI/AHF: ASA po Prior to arrival: JOSE Singh MD FACP FAC CCDS May 31, 2018 09:19
[2018-05-31] MEDS ORDERED: IBUP-844 PO (10:54)
--- NOTE | 2018-05-31 11:11 | Discharge Summary-Hospitalist ---
JACKELIN PHIPPS MED STUDENT 05/31/18 1111: Diagnosis/Chief Complaint Date of Admission May 29, 2018 at 20:40 Date of Discharge 05/31/18 Discharge Date: May 31, 2018 Admission Diagnosis Acute pericarditis Recent ablation at [facility] yesterday for atrial fibrillation NANNETTE DM HTN HLP Anxiety Monitor closely Anti-inflammatories Pain meds Ambulate HLIVF Home meds Discharge Diagnosis (1) Pericarditis Status: Acute (2) SOB (shortness of breath) Status: Acute (3) Chest pain Status: Acute (4) HTN (hypertension) Status: Chronic (5) DM Status: Chronic (6) NANNETTE on CPAP Status: Chronic (7) Anxiety Status: Chronic (8) Depression Status: Chronic (9) Obesity Status: Chronic (10) AFLUTTER Status: Resolved Discharge Summary Discharge Physical Exam Allergies: Coded Allergies: No Known Drug Allergies (Unverified , 06/24/12) Vitals & I&Os Vital Signs Date Time Temp Pulse Resp B/P (MAP) Pulse Ox O2 Delivery O2 Flow Rate FiO2 05/31/18 10:56 92 Nasal Cannula 4.00 05/31/18 08:00 97.0 72 18 139/74 (95) General Appearance: No Apparent Distress, WD/WN HEENT: Normal ENT Inspection Respiratory: Chest Non Tender, Lungs Clear, Normal Breath Sounds, No Accessory Muscle Use, No Respiratory Distress Cardiovascular: Regular Rate, Rhythm, No Edema, No Murmur, Normal Peripheral Pulses Gastrointestinal: Normal Bowel Sounds, Non Tender, Soft Extremity: Normal Capillary Refill, Normal Inspection, Normal Range of Motion, Non Tender, No Pedal Edema Skin: Normal Color, Warm/Dry Neurologic/Psychiatric: Alert, Oriented x3, No Motor/Sensory Deficits, Normal Mood/Affect Hospital Course This is a 57 yo male with a complicated cardiac history being followed closely by cardiology in [facility], and locally with Dr. Valencia. He recently underwent atrial ablation to resolve ongoing afib. After this procedure he felt a chest discomfort which he reported to an MANAGER HARDWARE at [facility] who reassured him that it was normal given his recent procedure. This discomfort progressed quickly to a sharp , stabbing, substernal pain that was aggravated with deep breathing. Dr. Elkins saw this patient in the ER and communicated his condition to [facility] cardiology team. It was decided to admit the patient. An echo was done which showed no effusion and troponins were not indicative of [place]. It was determined that the current presentation is likely pericarditis. He was started on NSAIDs and experienced some resolution of pain. Ultimately we discharge to home on NSAID, he will also need close follow up with cardiology. Labs (last 24 hrs) Laboratory Tests 05/30/18 14:23: Glucometer 153H 05/30/18 19:52: Glucometer 226H 05/31/18 05:42: Glucometer 67L 05/31/18 09:39: Glucometer 197H Patient resulted labs reviewed. Pending Labs Laboratory Tests 05/31/18 05:42: Glucometer 67 05/31/18 09:39: Glucometer 197 Discussion & Recommendations Discharge Planning: <30 minutes discharge planning Discharge Home Medications: Active Scripts Active Ibu (Ibuprofen) 600 Mg Tablet 600 Mg PO TIDPC Reported Metoprolol Succinate 50 Mg Tab.er.24h 50 Mg PO HS Novolog Flexpen (Insulin Aspart) 300 Units/3 Ml Solution 16 Units SC AC Metformin HCl 1,000 Mg Tablet 1,000 Mg PO BID WITH MEALS Levemir Flextouch (Insulin Detemir) 100 Unit/1 Ml Insuln.pen 48 Units SC HS Diltiazem 24Hr ER (Diltiazem HCl) 180 Mg Cap.er.24h 180 Mg PO DAILY Escitalopram Oxalate 10 Mg Tablet 10 Mg PO HS Alprazolam 0.5 Mg Tablet 0.5 Mg PO Q8H PRN Eliquis (Apixaban) 5 Mg Tablet 5 Mg PO BID Niacin 500 mg Capsule (Niacin (Inositol Niacinate)) 500 Mg Capsule 1,000 Mg PO DAILY TAKES 2 (500MG) CAPSULES Instructions to patient/family Please see electronic discharge instructions given to patient. Clinical Quality Measures AMI/AHF: ASA po Prior to arrival: No DVT/VTE Risk/Contraindication: Risk Factor Score Per Nursin RFS Level Per Nursing on Admit: 3=High LUIS EDUARDO KUNZ DO 05/31/18 1705: Discharge Summary Discharge Physical Exam Allergies: Coded Allergies: No Known Drug Allergies (Unverified , 06/24/12) General Appearance: No Apparent Distress, WD/WN Respiratory: Chest Non Tender, Lungs Clear, Normal Breath Sounds, No Accessory Muscle Use, No Respiratory Distress Cardiovascular: Regular Rate, Rhythm, No Edema, No Gallop, No JVD, No Murmur, Normal Peripheral Pulses Hospital Course Agree with above summary of hospital stay. Discussion & Recommendations Discharge Planning: <30 minutes discharge planning Problem Qualifiers (1) Pericarditis: Pericarditis type: unspecified type Chronicity: acute Qualified Codes: I30.9 - Acute pericarditis, unspecified (2) Chest pain: Chest pain type: unspecified Qualified Codes: R07.9 - Chest pain, unspecified (3) HTN (hypertension): Hypertension type: essential hypertension Qualified Codes: I10 - Essential ( primary) hypertension (4) Depression: Depression Type: unspecified Qualified Codes: F32.9 - Major depressive disorder, single episode, unspecified (5) Obesity: Obesity type: due to excess calories Obesity classification: adult class 2 ( BMI 35 - 39.9) Serious obesity comorbidity presence: with serious comorbidity Body mass index: BMI 36.0-36.9 Qualified Codes: E66.01 - Morbid (severe) obesity due to excess calories; Z68.36 - Body mass index (bmi) 36.0-36.9, adult JACKELIN PHIPPS MED STUDENT May 31, 2018 11:11 LUIS EDUARDO KUNZ DO May 31, 2018 17:05
[2018-05-31 11:20] VITALS: BP 139/74
--- OUTSIDE RECORDS SUMMARY | 2018-05-31 14:21 | XMS REPORT | Encounter Summary ---
Author Author [facility] Organization [facility] Address Unknown Phone Unavailable Care Team Providers Care Card Placer Name Role Phone Antonio Hawthorne MD PCP Encounter Details Date Type Department Care Team Description 05/29/2018 Telephone [facility] Cardiology Hailee Greoc RN [address] [place] [address] Social History Tobacco Use Types Packs/Day Years Used Date Never Assessed Sex Assigned at Date Recorded Not on file as of this encounter Miscellaneous Notes * Telephone Encounter - Hailee Greco RN - 05/30/2018 8:[address] Ordonez received call this am from Dr Valencia. [facility] * Telephone Encounter - Hailee Greco RN - 05/29/2018 5:10 PM CDT attempted to return call to his cell phone number, reached on her cell phone they were at [place], [place] ED Montez was discharged today following [...]
--- OUTSIDE RECORDS SUMMARY | 2018-05-31 14:21 | XMS REPORT | Encounter Summary ---
Author Author [facility] Organization [facility] Address Unknown Phone Unavailable Care Team Providers Care Graining Press Operator Name Role Phone Antonio Hawthorne MD PCP Encounter Details Date Type Department Care Team Description 05/28/2018 Procedure Pass [facility] EP [facility] [address] [place] [address] Social History Tobacco Use Types Packs/Day Years Used Date Never Assessed Sex Assigned at Date Recorded Not on file as of this encounter Plan of Treatment Not on fileas of this encounter Visit Diagnoses Not on filein this encounter
--- OUTSIDE RECORDS SUMMARY | 2018-05-31 14:21 | XMS REPORT | Encounter Summary ---
Author Author [facility] Organization [facility] Address Unknown Phone Unavailable Care Team Providers Care Flow Worker Name Role Phone Antonio Hawthorne MD PCP Reason for Visit * Reason Comments Records Request [phone] Encounter Details Date Type Department Care Team Description 05/31/2018 Documentation [facility] Cardiology Celeste Ware Records Request (Via [address] [place] [address] [phone]) [phone] Social History Tobacco Use Types Packs/Day Years Used Date Never Assessed Sex Assigned at Date Recorded Not on file as of this encounter Progress Notes * Celeste Ware - 05/31/2018 9:13 AM CDT Request for the following medical records for purpose of continuity of care: Montez Mulligan 1960 has an appointment with Dr. Ordonez Please send: H&P D/C summary Consult notes Recent Labs Last 4 EKG's Ablation Notes Cath reports Device Implant notes Last Device check Cardioversion Event monitor report with ECG strips Holter monitor report with ECG strips Stress Test ECHO any additional cardiac information / testing. Please Fax to: [phone] Attention: Celeste Ware MA [facility] Cardiology [address] [place] [address] in this encounter Plan of Treatment Not on fileas of this encounter Visit Diagnoses Not on filein this encounter
--- OUTSIDE RECORDS SUMMARY | 2018-05-31 14:21 | XMS REPORT | Encounter Summary ---
Author Author [facility] Organization [facility] Address Unknown Phone Unavailable Care Team Providers Care Steel Die Press Set Up Operator Name Role Phone Antonio Hawthorne MD PCP Reason for Visit * Auth/Cert (Routine) Status Reason Specialty Diagnoses / Referred By Referred To Procedures Contact Contact Encounter Details Date Type Department Care Team Description 05/28/2018 Hospital Cardiac Catheterization Babatunde Ordonez MD Atrial flutter (HCC) - Encounter Laboratory [id number] 05/29/[address] [place] [address] [place] [address] [phone] Social History Tobacco Use Types Packs/Day Years [...] a hematoma after ambulation. [email or web address] [...] CDT Cardiac Electrophysiology Brief Post-Procedure Note Attending Insulation Installer: Babatunde Ordonez MD Fellow: NONE Preoperative diagnosis: [...] the line from 0600 o'clock in the [place]DI[place] view across the sub- eustachian isthmus resulted in termination of the AFL abruptly with caodaism of sinus rhythm however conduction block was not completely established just conduction delay. Further RF ablation through 0600 quickly resulted in a counterclockwise conduction block however clockwise conduction block was still present. Additional RF along the septal edge of the 0600 o'clock line result in bidirectional conduction block. This was monitored. No caodaism of conduction was noted. Conduction Times: -Baseline [...] removed: None Sheaths: All via the RFV--8.5 [place] SRO guide sheath used for mapping ablation catheter; 6 [place] sheath for CS catheter; 7 [place] sheath for the elena catheter based along [...] --Follow-up with Dr. Anusha Valencia his primary transition social worker in [facility] in [address] [...] City/State/Zipcode Phone Number [facility] [address] [place] [address] * BASIC METABOLIC PANEL (05/29/2018 3:50 AM) [...] for questions. Specimen Blood Performing Organization Address City/[facility] [address] [place] [address] * CBC (05/29/2018 3:50 AM) White Blood [...] MAIN LAB Specimen Blood Performing Organization Address [facility] Phone Number [facility] LAB [address] [place] [address] * POC GLUCOSE (05/28/2018 9:53 PM) Glucose, POC 154 (H) 70 - 100 MG/DL [facility] Performing Organization Address [facility] Phone Number [facility] [address] [phone] * POC GLUCOSE (05/28/2018 3:17 PM) Glucose, POC 107 (H) 70 - 100 MG/DL [facility] Performing Organization Address [facility] Phone Number [facility] LAB [address] [phone] * EP DEVICE (05/28/2018 2:46 PM) Impressions [...] placement. --Intracardiac 3-D electroanatomic mapping using the [employer] mapping system. --SVT Ablation. --Moderate sedation. BRIEF SUMMARY: Patient presented in atrial flutter.Atrial flutter mapped through the isthmus with 3D mapping and catheter mapping.Also treatment mapping performed.Having demonstrated an isthmus dependent atrial flutter circuit.RF ablation to be done in the line from 0600 o'clock in the CA[place]DI[place] view across the sub-eustachian isthmus resulted in termination of the AFL abruptly with caodaism of sinus rhythm however conduction block was not completely established just conduction delay.Further RF ablation through 0600 quickly resulted in a counterclockwise conduction block however clockwise conduction block was still present.Additional RF along the septal edge of the 0600 o'clock line result in bidirectional conduction block.This was monitored.No caodaism of conduction was noted. AEROSPACE ENGINEER:Babatunde Ordonez M.D. ROTARY BAR OPERATOR: NONE INDICATION FOR PROCEDURE: Recurrent AFL PRESENTING [...] trained Registered Nurse who was supervised by pr. The patient underwent continuous blood pressure, heart [...] Pole defectable EP catheter inserted via a 7.[place] sheath in the right femoral vein, advanced to the lateral wall of the right atrium close to the elena teminalis with the distal poles at the low lateral RA and the proximal poles at the high lateral RA. Decapolar deflectable EP catheter inserted via a 6 [place] sheath in the right femoral vein, advanced to the coronary sinus. Thermacool FSt. Russ flex tipcurve ablation catheter inserted via an 8 [place] SRO sheath in the right femoral vein, advanced to the right atrium utilized for mapping and ablation..One of these catheters was placed at the AV junction intermittently during the procedure. --Cristae-20 Pole deflectable EP catheter inserted via a 7 [place] sheath in the right femoral vein, advanced to the lateral wall of the right atrium close to the elena terminalis with the distal poles at the low lateral RA and the proximal poles at the high lateral RA. --Decapolar deflectable EP catheter inserted via a 6Fr [place] sheath in the right femoral vein, advanced to the coronary sinus. --St. Russ FlexTip irrigated ablation catheter inserted via an 8.5 [place] SRO sheath in the right femoral vein, advanced to the right atrium utilized for mapping and ablation. Also note, the SRO sheath was exchanged at the end of the procedure for a short 8.5 [place] sheath. ARRHYTHMIAS: -- Atrial flutter that appeared [...] at the RA-IVC junction.Lines were also created [id number]. Patient presented in atrial flutter.Atrial flutter mapped through the isthmus with 3D mapping and catheter mapping.Also treatment mapping performed.Having demonstrated an isthmus dependent atrial flutter circuit.RF ablation to be done in the line from 0600 o'clock in the CA[place]DI[place] view across the sub-eustachian isthmus resulted in termination of the AFL abruptly with caodaism of sinus rhythm however conduction block was not completely established just conduction delay.Further RF ablation through 0600 quickly resulted in a counterclockwise conduction block however clockwise conduction block was still present.Additional RF along the septal edge of the 0600 o'clock line result in bidirectional conduction block.This was monitored.No caodaism of conduction was noted. Upon completion of [...] the line from 0600 o'clock in the CA[place]DI[place] view across the sub-eustachian isthmus resulted in termination of the AFL abruptly with caodaism of sinus rhythm however conduction block was not completely established just conduction delay.Further RF ablation through 0600 quickly resulted in a counterclockwise conduction block however clockwise conduction block was still present.Additional RF along the septal edge of the 0600 o'clock line result in bidirectional conduction block.This was monitored.No caodaism of conduction was noted. AEROSPACE ENGINEER:Babatunde Ordonez M.D. ROTARY BAR OPERATOR: NONE INDICATION FOR PROCEDURE: Recurrent AFL PRESENTING [...] Pole defectable EP catheter inserted via a 7.[place] sheath in the right femoral vein, advanced to the lateral wall of the right atrium close to the elena teminalis with the distal poles at the low lateral RA and the proximal poles at the high lateral RA. Decapolar deflectable EP catheter inserted via a 6 [place] sheath in the right femoral vein, advanced to the coronary sinus. Thermacool FSt. Russ flex tipcurve ablation catheter inserted via an 8 [place] SRO sheath in the right femoral vein, advanced to the right atrium utilized for mapping and ablation..One of these catheters was placed at the AV junction intermittently during the procedure. --Cristae-20 Pole deflectable EP catheter inserted via a 7 [place] sheath in the right femoral vein, advanced to the lateral wall of the right atrium close to the elena terminalis with the distal poles at the low lateral RA and the proximal poles at the high lateral RA. --Decapolar deflectable EP catheter inserted via a 6Fr [place] sheath in the right femoral vein, advanced to the coronary sinus. --St. Russ FlexTip irrigated ablation catheter inserted via an 8.5 [place] SRO sheath in the right femoral vein, advanced to the right atrium utilized for mapping and ablation. Also note, the SRO sheath was exchanged at the end of the procedure for a short 8.5 [place] sheath. ARRHYTHMIAS: -- Atrial flutter that appeared [...] at the RA-IVC junction.Lines were also created [id number]. Patient presented in atrial flutter.Atrial flutter mapped through the isthmus with 3D mapping and catheter mapping.Also treatment mapping performed.Having demonstrated an isthmus dependent atrial flutter circuit.RF ablation to be done in the line from 0600 o'clock in the CA[place]DI[place] view across the sub-eustachian isthmus resulted in termination of the AFL abruptly with caodaism of sinus rhythm however conduction block was not completely established just conduction delay.Further RF ablation through 0600 quickly resulted in a counterclockwise conduction block however clockwise conduction block was still present.Additional RF along the septal edge of the 0600 o'clock line result in bidirectional conduction block.This was monitored.No caodaism of conduction was noted. Upon completion of [...] 100 MG/DL MAIN LAB Performing Organization Address [facility] Phone Number [facility] [address] [place] [address] in this encounter Visit Diagnoses Diagnosis Typical [...]
--- OUTSIDE RECORDS SUMMARY | 2018-05-31 14:21 | XMS REPORT | Clinical Summary ---
Author Author [facility] Organization [facility] Address Unknown Phone Unavailable Care Team Providers Care Assistant Floor Covering Printer Name Role Phone Antonio Hawthorne MD PCP Source Comments Some departments are not documenting in the electronic medical record. If you do not see the information that you expected, contact Release of Information in the Health Information Management department at [phone] for further assistance in locating additional records.[facility] Allergies Active Allergy Reactions Severity [...] capsules by 180 capsule 3 05/21/20 05/29/20 Discontin CD) 180 mg capsule mouth daily. 18 18 ued Active Problems Problem Noted Date Atrial fibrillation ([facility]) 05/21/2018 Overview: [facility] NANNETTE on CPAP 05/21/2018 Type 2 diabetes mellitus ([facility]) 05/21/2018 Essential hypertension 05/21/2018 Atrial flutter ([facility]) 05/21/2018 Overview: 04/2015 during hospitalization 02/2018 ED visit 02/2018 Echo: EF 55 - 0%. Aortic valve sclerosis wihtout significant aortic stenosis. mild to mod enlargement of the ascending aorta measuring up to 4.3 cm 02/21/18 Holter [id number] throughout 24 hour study. average ventricular rate + 99 bpm 03/12/18 MPE : A-flutter wth RVR throughout test, no evidenceof myocardial ischemia or infarction LVEF 58% 03/19/18 Cardioversion and SR retored 05/01/18 Afib/flutter with RVR noted 05/14/18 [facility]. minimal CAD, EF 60%, elevated LVEDP, no significant mitral regurgitation or aortic regurgitation. Successful cardioversion from AF to SR Ascending aortic aneurysm ([facility]) 05/21/2018 Overview: 07/27/15 4.3 cm in he mid ascending aorta and 5 cm at the aortic sinus level. followed by Dr Mobley of the CV service at [facility] in [place], [place] 02/2018 Echo: EF 55 - 0%. Aortic valve sclerosis wihtout significant aortic stenosis. mild to mod enlargement of the ascending aorta measuring up to 4.3 cm Encounters Date Type Specialty Care Team Description 05/31/2018 Documentation Cardiology Celeste Ware Records Request ( [facility]-[phone]) 05/29/2018 Telephone Cardiology Hailee Greco, NICK 05/28/2018 Hospital Cardiology Babatunde Ordonez MD Atrial flutter ([facility] ) - Encounter 05/29/2018 05/28/2018 Anesthesia Cardiology Eriberto Chavez, ADULT MINISTRIES DIRECTOR Event 05/28/2018 Procedure Pass Cardiology 05/28/2018 Surgery [...] Precertification (Approval for EPS/RFA through [employer] [place]) 05/21/2018 Prep for Case Cardiology Babatunde Ordonez [...] 2008 VACCINE (1 of 2) INFLUENZA VACCINE 04/03/2018 Procedures Procedure Name Priority Date/Time Associated Diagnosis [...] Organization Address City/State/Zipcode Phone Number MAIN LAB [address] [place] [address] * CBC (05/29/2018 3:50 AM) White Blood Cells 8.1 4.5 - 11.0 K/UL MAIN [facility] RBC 4.71 4.4 - 5.5 M/UL [facility] Hemoglobin 14.0 13.5 - 16.5 [...] MAIN LAB Specimen Blood Performing Organization Address City/[facility]/Zipcode Phone Number [facility] [address] [place] [address] * BASIC METABOLIC PANEL (05/29/2018 3:50 AM) Only the most recent of 2 results within the time period is included. Sodium 138 137 - 147 MMOL/L [facility] [...] for questions. Specimen Blood Performing Organization Address City/[facility]/Zipcode Phone Number [facility] [address] [place] [address] * EP STUDY (05/28/2018 2:46 PM) Impressions [...] placement. --Intracardiac 3-D electroanatomic mapping using the Codoon mapping system. --SVT Ablation. --Moderate sedation. BRIEF SUMMARY: Patient presented in atrial flutter.Atrial flutter mapped through the isthmus with 3D mapping and catheter mapping.Also treatment mapping performed.Having demonstrated an isthmus dependent atrial flutter circuit.RF ablation to be done in the line from 0600 o'clock in the [place] view across the sub-eustachian isthmus resulted in termination of the AFL abruptly with restorationism of sinus rhythm however conduction block was not completely established just conduction delay.Further RF ablation through 0600 quickly resulted in a counterclockwise conduction block however clockwise conduction block was still present.Additional RF along the septal edge of the 0600 o'clock line result in bidirectional conduction block.This was monitored.No restorationism of conduction was noted. OFFICE MACHINE EMBOSSOGRAPH OPERATOR:Babatunde Ordonez M.D. TRUCK DRIVER RUBBISH COLLECTOR: NONE INDICATION FOR PROCEDURE: Recurrent AFL PRESENTING [...] trained Registered Nurse who was supervised by wy. The patient underwent continuous blood pressure, heart [...] Pole defectable EP catheter inserted via a 7.Comoran sheath in the right femoral vein, advanced to the lateral wall of the right atrium close to the elena teminalis with the distal poles at the low lateral RA and the proximal poles at the high lateral RA. Decapolar deflectable EP catheter inserted via a 6 Comoran sheath in the right femoral vein, advanced to the coronary sinus. Thermacool FSt. Russ flex tipcurve ablation catheter inserted via an 8 Comoran SRO sheath in the right femoral vein, advanced to the right atrium utilized for mapping and ablation..One of these catheters was placed at the AV junction intermittently during the procedure. --Cristae-20 Pole deflectable EP catheter inserted via a 7 Comoran sheath in the right femoral vein, advanced to the lateral wall of the right atrium close to the elena terminalis with the distal poles at the low lateral RA and the proximal poles at the high lateral RA. --Decapolar deflectable EP catheter inserted via a 6Fr Comoran sheath in the right femoral vein, advanced to the coronary sinus. --St. Russ FlexTip irrigated ablation catheter inserted via an 8.5 [place]oran SRO sheath in the right femoral vein, advanced to the right atrium utilized for mapping and ablation. Also note, the SRO sheath was exchanged at the end of the procedure for a short 8.5 Comoran sheath. ARRHYTHMIAS: -- Atrial flutter that appeared [...] at the RA-IVC junction.Lines were also created [id number]. Patient presented in atrial flutter.Atrial flutter mapped through the isthmus with 3D mapping and catheter mapping.Also treatment mapping performed.Having demonstrated an isthmus dependent atrial flutter circuit.RF ablation to be done in the line from 0600 o'clock in the [place] view across the sub-eustachian isthmus resulted in termination of the AFL abruptly with restorationism of sinus rhythm however conduction block was not completely established just conduction delay.Further RF ablation through 0600 quickly resulted in a counterclockwise conduction block however clockwise conduction block was still present.Additional RF along the septal edge of the 0600 o'clock line result in bidirectional conduction block.This was monitored.No restorationism of conduction was noted. Upon completion of [...] the line from 0600 o'clock in the [place] view across the sub-eustachian isthmus resulted in termination of the AFL abruptly with restorationism of sinus rhythm however conduction block was not completely established just conduction delay.Further RF ablation through 0600 quickly resulted in a counterclockwise conduction block however clockwise conduction block was still present.Additional RF along the septal edge of the 0600 o'clock line result in bidirectional conduction block.This was monitored.No restorationism of conduction was noted. OFFICE MACHINE EMBOSSOGRAPH OPERATOR:Babatunde Ordonez M.D. TRUCK DRIVER RUBBISH COLLECTOR: NONE INDICATION FOR PROCEDURE: Recurrent AFL PRESENTING [...] Pole defectable EP catheter inserted via a 7.Comoran sheath in the right femoral vein, advanced to the lateral wall of the right atrium close to the elena teminalis with the distal poles at the low lateral RA and the proximal poles at the high lateral RA. Decapolar deflectable EP catheter inserted via a 6 Comoran sheath in the right femoral vein, advanced to the coronary sinus. Thermacool FSt. Russ flex tipcurve ablation catheter inserted via an 8 Comoran SRO sheath in the right femoral vein, advanced to the right atrium utilized for mapping and ablation..One of these catheters was placed at the AV junction intermittently during the procedure. --Cristae-20 Pole deflectable EP catheter inserted via a 7 Comoran sheath in the right femoral vein, advanced to the lateral wall of the right atrium close to the elena terminalis with the distal poles at the low lateral RA and the proximal poles at the high lateral RA. --Decapolar deflectable EP catheter inserted via a 6Fr Comoran sheath in the right femoral vein, advanced to the coronary sinus. --St. Russ FlexTip irrigated ablation catheter inserted via an 8.5 Comoran SRO sheath in the right femoral vein, advanced to the right atrium utilized for mapping and ablation. Also note, the SRO sheath was exchanged at the end of the procedure for a short 8.5 Comoran sheath. ARRHYTHMIAS: -- Atrial flutter that appeared [...] at the RA-IVC junction.Lines were also created [id number]. Patient presented in atrial flutter.Atrial flutter mapped through the isthmus with 3D mapping and catheter mapping.Also treatment mapping performed.Having demonstrated an isthmus dependent atrial flutter circuit.RF ablation to be done in the line from 0600 o'clock in the [place] view across the sub-eustachian isthmus resulted in termination of the AFL abruptly with restorationism of sinus rhythm however conduction block was not completely established just conduction delay.Further RF ablation through 0600 quickly resulted in a counterclockwise conduction block however clockwise conduction block was still present.Additional RF along the septal edge of the 0600 o'clock line result in bidirectional conduction block.This was monitored.No restorationism of conduction was noted. Upon completion of [...] end of the study. Performing Organization Address City/[facility] Phone Number OTHER OUTSIDE LAB * CBC [...] 17.0 % [facility] Performing Organization Address City/[facility]/[employer] Phone Number [facility] [address] [facility], [facility] [address] [place] [address] * MAGNESIUM (05/21/2018 11:57 AM) Magnesium 1.9 1.5 - 2.5 mg/dL [facility] Comment: Test Performed at: [facility] [address] [id number] TIFFANIE NICHOLSON DO,MPH Performing Organization Address City/[facility]/Zipcode Phone Number [facility] [address] [place] [address] * ECG/QRS (05/21/2018 10:12 AM) QRS DURATION 90 OTHER OUTSIDE LAB Performing Organization Address City/State/Zipcode Phone Number OTHER OUTSIDE LAB from Last 3 Months
--- OUTSIDE RECORDS SUMMARY | 2018-05-31 14:21 | XMS REPORT | Encounter Summary ---
Author Author [facility] Organization [facility] Address Unknown Phone Unavailable Care Team Providers Care Company Miner Blasting Name Role Phone Antonio Hawthorne MD PCP Reason for Visit * Auth/Cert (Routine) Status Reason Specialty Diagnoses / Referred By Referred To Procedures Contact Contact Encounter Details Date Type Department Care Team Description 05/28/2018 Anesthesia [facility] EP LAB Eriberto Chavez CRNA Event [address] [facility]. [address] [place] [address] [place] [address] [place] [address] [phone] Anesthesia Record Procedure Name Responsible Anesthesia Start [...] consented Plan discussed with: anesthesiologist, surgeon/proceduralist and SUGAR LABORATORY ASSISTANT. Comments: (Will be available if needed for cardioversion and/or if pt obstructs during the case) in this encounter Plan of Treatment Not on fileas of this encounter Visit Diagnoses Not on filein this encounter
--- OUTSIDE RECORDS SUMMARY | 2018-05-31 14:22 | XMS REPORT | Encounter Summary ---
Author Author [facility] Organization [facility] Address Unknown Phone Unavailable Care Team Providers Care Detailer Name Role Phone Antonio Hawthorne MD PCP Reason for Visit * Reason Comments Precertification Approval for EPS/RFA through [facility] Encounter Details Date Type Department Care Team Description 05/21/2018 Documentation [facility] Neal Brambila RN Precertification [place] [address] (Approval for EPS/RFA [address] [facility] through [facility]) [place] [address] Social History Tobacco Use Types Packs/Day Years Used Date Never Assessed Sex Assigned at Date Recorded Not on file as of this encounter Progress Notes * Neal Brambila RN - 05/21/2018 4:21 PM CDT Baker with [facility], , confirmed benefits and eligibility: Current and active since 01/01/2017, $1500 deductible with required co-insurance of 40% to max OOP $2000, then plan will pay 100% of allowable charges. No pre- certification is required for EPS/RFA for Atrial Flutter, Cardioversion or for CINTHYA if needed [phone]. Reference #[id number] in this encounter Plan of Treatment Not on fileas of this encounter Visit Diagnoses Not on filein this encounter
--- OUTSIDE RECORDS SUMMARY | 2018-05-31 14:22 | XMS REPORT | Encounter Summary ---
Author Author [facility] Organization [facility] Address Unknown Phone Unavailable Care Team Providers Care Home Insurance Agent Name Role Phone Antonio Hawthorne MD PCP Encounter Details Date Type Department Care Team Description 05/21/2018 Orders Only [facility] Babatunde Ordonez MD [place] [address] [place] [address] [place] [address] [place] [address] [phone] Social History Tobacco Use Types Packs/Day Years [...] 17.0 % [facility] RESULTS Performing Organization Address [facility] Phone Number [facility] [address] [address] * MAGNESIUM (05/21/2018 11:57 AM) Magnesium 1.9 1.5 - 2.5 mg/dL [facility] Comment: Test Performed at: [facility] [address] [address] [id number] TIFFANIE NICHOLSON DO,MPH Performing Organization Address [facility] Phone Number [facility] [address] [place] [address] in this encounter Visit Diagnoses Not on filein this encounter
--- OUTSIDE RECORDS SUMMARY | 2018-05-31 14:22 | XMS REPORT | Encounter Summary ---
Author Author [facility] Organization [facility] Address Unknown Phone Unavailable Care Team Providers Care Sheep Farmer Name Role Phone Antonio Hawthorne MD PCP Encounter Details Date Type Department Care Team Description 05/21/2018 Prep for Case [facility] Cardiology Babatunde Ordonez MD Typical atrial flutter [facility] [place] [facility] [address] (HCC) (Primary Dx) [facility] [address] [address] [place] [address] [place] [address] [phone] Social History Tobacco Use Types Packs/Day Years Used Date Never Assessed Sex Assigned at Date Recorded Not on file as of this encounter Plan of Treatment Not on fileas of this encounter Visit Diagnoses Diagnosis Typical atrial flutter (HCC) - Primary Atrial flutter
--- OUTSIDE RECORDS SUMMARY | 2018-05-31 14:22 | XMS REPORT | Encounter Summary ---
Author Author [facility] Organization [facility] Address Unknown Phone Unavailable Care Team Providers Care Instrument Technician Apprentice Name Role Phone Antonio Hawthorne MD PCP Reason for Referral * (Routine) Status Reason Specialty Diagnoses / Referred By Referred To Procedures Contact Contact New Request Procedures Babatunde Ordonez, REQUEST FOR MD CARDIOLOGY [address] [place] [address] Reason for Visit * Reason Comments New Patient referred by Dr. Anusha Valencia Atrial fibrillation possible ablation Encounter Details Date Type Department Care Team Description 05/21/2018 Office Visit [facility] Babatunde Ordonez MD New Patient (referred by [facility] 3rd [address] [facility] [facility] [address] Anusha Valencia); Atrial fl Toni [address] fibrillation (possible [address] [place] [address] ablation) [place], [place] [address] Social History Tobacco Use Types Packs/Day Years [...] NON-URGENT questions please contact us through your [employer] account. For all medication refills please contact your pharmacy or send a request through [employer]. For all questions that may need to be addressed urgently please call the nursing triage line at [phone] Sunday - Sunday 8-5 only. Please leave a detailed message with your name, date of , and reason for your call. To schedule an appointment call [phone]. Please allow 10-15 business days for the [...] Organization Address City/State/Zipcode Phone Number [facility] [address] [facility], [address] [place] [address] * ECG/QRS (05/21/2018 10:12 AM) QRS DURATION 90 OTHER OUTSIDE LAB Performing Organization Address City/State/Zipcode Phone Number OTHER OUTSIDE LAB in this encounter Visit Diagnoses Diagnosis Typical atrial flutter (HCC) - Primary Atrial flutter Essential hypertension Unspecified essential hypertension Paroxysmal atrial fibrillation (HCC) Atrial fibrillation
--- OUTSIDE RECORDS SUMMARY | 2018-05-31 14:22 | XMS REPORT | Encounter Summary ---
Author Author [facility] Organization [facility] Address Unknown Phone Unavailable Care Team Providers Care Line Decorator Name Role Phone No Pcp, Na PCP Unavailable Reason for Visit * Reason Comments New Patient Encounter Details Date Type Department Care Team Description 05/17/2018 Patient Profile [facility] Carmina Quintanilla New Patient [facility] [place] [address] Social History Tobacco Use Types Packs/Day Years [...]
--- OUTSIDE RECORDS SUMMARY | 2018-05-31 14:22 | XMS REPORT | Encounter Summary ---
Author Author [facility] Organization [facility] Address Unknown Phone Unavailable Care Team Providers Care Retail Sales Advisor Name Role Phone Antonio Hawthorne MD PCP Reason for Visit * Reason Comments EP Pre-Procedure 05/28/18 Atrial Flutter using Radiofrequency Ablation Instructions Encounter Details Date Type Department Care Team Description 05/21/2018 Documentation [facility] Cardiology Hailee Greco RN EP Pre-Procedure [facility] [place] [facility] 3rd Instructions (05/28/18 fl [address] Atrial Flutter using [address] Radiofrequency Ablation) [place] [address] Social History Tobacco Use Types Packs/Day Years [...] Ordonez. ARRIVAL TIME: Please report to the [facility] admitting office on the ground floor of the [facility] on: 05/28/18 The EP Lab will call to notify you of your arrival time. They will call on the business day prior to your procedure. (If you have any questions regarding your arrival time for the Electrophysiology Lab, please call the EP Lab at [phone].) PRE-PROCEDURE APPOINTMENTS: 05/21 Office visit to update history and physical (requirement within 30 days of procedure) with Dr. Babatunde Ordonez at [facility] Cardiology [facility] 05/21 Pre-Admission lab work: BMP, CBC and Magnesium at the [facility] Cardiology [facility]. SPECIAL MEDICATION INSTRUCTIONS Nothing to eat [...] your health insurance card(s). Arrange for a river driver to take you home from the [...] [place] Home Medication Instructions JASON: Printed on:05/21/18 6978 Medication Information apixaban (ELIQUIS) 5 mg tablet [...]
--- OUTSIDE RECORDS SUMMARY | 2018-05-31 14:22 | XMS REPORT | Encounter Summary ---
Author Author [facility] Organization [facility] Address Unknown Phone Unavailable Care Team Providers Care Editor In Chief Newspaper Name Role Phone Antonio Hawthorne MD PCP Reason for Visit * Auth/Cert (Routine) Status Reason Specialty Diagnoses / Referred By Referred To Procedures Contact Contact Encounter Details Date Type Department Care Team Description 05/28/2018 Surgery HC2 EP LAB Babatunde Ordonez MD INTRACARDIAC CATHETER [address] [place] [address] [address] COMPREHENSIVE [phone] [place] [address] ELECTROPHYSIOLOGIC [phone] EVALUATION - TYPICAL FLUTTER Social History Tobacco [...] a hematoma after ambulation. [facility] Patient to follow up with [facility] Cardiology (MAC) or on-call physician with [...] CDT Cardiac Electrophysiology Brief Post-Procedure Note Attending Reliability Technician: Babatunde Ordonez MD Fellow: NONE Preoperative diagnosis: [...] the line from 0600 o'clock in the LUXEMBOURGER view across the sub- eustachian isthmus resulted in termination of the AFL abruptly with confucianism of sinus rhythm however conduction block was not completely established just conduction delay. Further RF ablation through 0600 quickly resulted in a counterclockwise conduction block however clockwise conduction block was still present. Additional RF along the septal edge of the 0600 o'clock line result in bidirectional conduction block. This was monitored. No confucianism of conduction was noted. Conduction Times: -Baseline [...] removed: None Sheaths: All via the RFV--8.5 Vincentian SRO guide sheath used for mapping ablation catheter; 6 Vincentian sheath for CS catheter; 7 Vincentian sheath for the elena catheter based along [...] --Follow-up with Dr. Anusha Valencia his primary conveyor belt installer in [facility] in 1 month [...] City/State/Zipcode Phone Number [facility] [address] [place] [address] * BASIC METABOLIC PANEL (05/29/2018 3:50 AM) [...] Performing Organization Address City/[facility] Phone Number [facility] [address] [place] [address] * CBC (05/29/2018 3:50 AM) White Blood [...] MAIN LAB Specimen Blood Performing Organization Address [facility] Phone Number MA[facility] LAB [address] [place] [address] * POC GLUCOSE (05/28/2018 9:53 PM) Glucose, POC 154 (H) 70 - 100 MG/DL [facility] Performing Organization Address [facility] Phone Number [facility] [address] [place] [phone] * POC GLUCOSE (05/28/2018 3:17 PM) Glucose, POC 107 (H) 70 - 100 MG/DL [facility] Performing Organization Address [facility] Phone Number [facility] [address] [place] [address] * EP DEVICE (05/28/2018 2:46 PM) Impressions [...] placement. --Intracardiac 3-D electroanatomic mapping using the [employer] mapping system. --SVT Ablation. --Moderate sedation. BRIEF SUMMARY: Patient presented in atrial flutter.Atrial flutter mapped through the isthmus with 3D mapping and catheter mapping.Also treatment mapping performed.Having demonstrated an isthmus dependent atrial flutter circuit.RF ablation to be done in the line from 0600 o'clock in the LUXEMBOURGER view across the sub-eustachian isthmus resulted in termination of the AFL abruptly with confucianism of sinus rhythm however conduction block was not completely established just conduction delay.Further RF ablation through 0600 quickly resulted in a counterclockwise conduction block however clockwise conduction block was still present.Additional RF along the septal edge of the 0600 o'clock line result in bidirectional conduction block.This was monitored.No confucianism of conduction was noted. CUSTOMER EXPERIENCE PROFESSIONAL:Babatunde Ordonez M.D. FELT CUTTER: NONE INDICATION FOR PROCEDURE: Recurrent AFL PRESENTING [...] Pole defectable EP catheter inserted via a 7.Vincentian sheath in the right femoral vein, advanced to the lateral wall of the right atrium close to the elena teminalis with the distal poles at the low lateral RA and the proximal poles at the high lateral RA. Decapolar deflectable EP catheter inserted via a 6 Vincentian sheath in the right femoral vein, advanced to the coronary sinus. Thermacool FSt. Russ flex tipcurve ablation catheter inserted via an 8 Vincentian SRO sheath in the right femoral vein, advanced to the right atrium utilized for mapping and ablation..One of these catheters was placed at the AV junction intermittently during the procedure. --Cristae-20 Pole deflectable EP catheter inserted via a 7 Vincentian sheath in the right femoral vein, advanced to the lateral wall of the right atrium close to the elena terminalis with the distal poles at the low lateral RA and the proximal poles at the high lateral RA. --Decapolar deflectable EP catheter inserted via a 6Fr Vincentian sheath in the right femoral vein, advanced to the coronary sinus. --St. Russ FlexTip irrigated ablation catheter inserted via an 8.5 Vincentian SRO sheath in the right femoral vein, advanced to the right atrium utilized for mapping and ablation. Also note, the SRO sheath was exchanged at the end of the procedure for a short 8.5 Vincentian sheath. ARRHYTHMIAS: -- Atrial flutter that appeared [...] at the RA-IVC junction.Lines were also created [id number]. Patient presented in atrial flutter.Atrial flutter mapped through the isthmus with 3D mapping and catheter mapping.Also treatment mapping performed.Having demonstrated an isthmus dependent atrial flutter circuit.RF ablation to be done in the line from 0600 o'clock in the LUXEMBOURGER view across the sub-eustachian isthmus resulted in termination of the AFL abruptly with confucianism of sinus rhythm however conduction block was not completely established just conduction delay.Further RF ablation through 0600 quickly resulted in a counterclockwise conduction block however clockwise conduction block was still present.Additional RF along the septal edge of the 0600 o'clock line result in bidirectional conduction block.This was monitored.No confucianism of conduction was noted. Upon completion of [...] the line from 0600 o'clock in the LUXEMBOURGER view across the sub-eustachian isthmus resulted in termination of the AFL abruptly with confucianism of sinus rhythm however conduction block was not completely established just conduction delay.Further RF ablation through 0600 quickly resulted in a counterclockwise conduction block however clockwise conduction block was still present.Additional RF along the septal edge of the 0600 o'clock line result in bidirectional conduction block.This was monitored.No confucianism of conduction was noted. CUSTOMER EXPERIENCE PROFESSIONAL:Babatunde Ordonez M.D. FELT CUTTER: NONE INDICATION FOR PROCEDURE: Recurrent AFL PRESENTING [...] Pole defectable EP catheter inserted via a 7.Vincentian sheath in the right femoral vein, advanced to the lateral wall of the right atrium close to the elena teminalis with the distal poles at the low lateral RA and the proximal poles at the high lateral RA. Decapolar deflectable EP catheter inserted via a 6 Vincentian sheath in the right femoral vein, advanced to the coronary sinus. Thermacool FSt. Russ flex tipcurve ablation catheter inserted via an 8 Vincentian SRO sheath in the right femoral vein, advanced to the right atrium utilized for mapping and ablation..One of these catheters was placed at the AV junction intermittently during the procedure. --Cristae-20 Pole deflectable EP catheter inserted via a 7 Vincentian sheath in the right femoral vein, advanced to the lateral wall of the right atrium close to the elena terminalis with the distal poles at the low lateral RA and the proximal poles at the high lateral RA. --Decapolar deflectable EP catheter inserted via a 6Fr Vincentian sheath in the right femoral vein, advanced to the coronary sinus. --St. Russ FlexTip irrigated ablation catheter inserted via an 8.5 Vincentian SRO sheath in the right femoral vein, advanced to the right atrium utilized for mapping and ablation. Also note, the SRO sheath was exchanged at the end of the procedure for a short 8.5 Vincentian sheath. ARRHYTHMIAS: -- Atrial flutter that appeared [...] at the RA-IVC junction.Lines were also created [id number]. Patient presented in atrial flutter.Atrial flutter mapped through the isthmus with 3D mapping and catheter mapping.Also treatment mapping performed.Having demonstrated an isthmus dependent atrial flutter circuit.RF ablation to be done in the line from 0600 o'clock in the LUXEMBOURGER view across the sub-eustachian isthmus resulted in termination of the AFL abruptly with confucianism of sinus rhythm however conduction block was not completely established just conduction delay.Further RF ablation through 0600 quickly resulted in a counterclockwise conduction block however clockwise conduction block was still present.Additional RF along the septal edge of the 0600 o'clock line result in bidirectional conduction block.This was monitored.No confucianism of conduction was noted. Upon completion of [...] Address City/State/Zipcode Phone Number MAIN LAB [address] [place] [address] in this encounter Visit Diagnoses Diagnosis Typical [...]
--- OUTSIDE RECORDS SUMMARY | 2018-05-31 14:22 | XMS REPORT | Encounter Summary ---
Author Author [facility] Organization [facility] Address Unknown Phone Unavailable Care Team Providers Care Junior Buyer Name Role Phone Antonio Hawthorne MD PCP Reason for Visit * Reason Comments Labs Only Encounter Details Date Type Department Care Team Description 05/21/2018 Lab Only [facility] Internal Typical atrial flutter Medicine (HCC); [facility] Bld[address] 3rd Essential hypertension; fl [address] Paroxys[address] fibrillation (HCC) [place] [address] Social History Tobacco Use Types Packs/Day Years [...] Organization Address City/State/Zipcode Phone Number [facility] [address] [facility] [address] [place] [address] in this encounter Visit Diagnoses Diagnosis Typical atrial flutter (HCC) Atrial flutter Essential hypertension Unspecified essential hypertension Paroxysmal atrial fibrillation (HCC) Atrial fibrillation
--- OUTSIDE RECORDS SUMMARY | 2018-05-31 14:22 | XMS REPORT | Encounter Summary ---
Author Author [facility] Organization [facility] Address Unknown Phone Unavailable Care Team Providers Care Long Term Name Role Phone Antonio Hawthorne MD PCP Encounter Details Date Type Department Care Team Description 05/22/2018 Pre-Admit XDD CARDIOLOGY [place] [place], PAVianneyC Orders Only [address] [place] [address] Social History Tobacco Use Types Packs/Day Years Used Date Never Assessed Sex Assigned at Date Recorded Not on file as of this encounter Plan of Treatment Not on fileas of this encounter Visit Diagnoses Not on filein this encounter
--- OUTSIDE RECORDS SUMMARY | 2018-05-31 14:23 | XMS REPORT | Continuity of Care Document ---
Author Author [facility] Organization [facility] Address Unknown Phone Unavailable Allergies Active Description Code Type Severity Reaction Onset Reported/Identified Relationship to Patient Clinical Status Yes No Known Drug Allergies [id number] Drug Allergy Unknown N/A 06/24/2012 Medications There [...] CCDS Ot I48.0 08/10/2015 TAINA BROOKE L TYPECASTING MACHINE OPERATOR Ot I71.2 08/19/2015 BAIMA, BROOKE L TYPECASTING MACHINE OPERATOR Ot I71.2 04/12/2016 ROSE WATKINS [...] PAROXYSMAL ATRIAL FIBRILLATION 09/17/2017 LO HERHER L TYPECASTING MACHINE OPERATOR Ot I71.2 THORACIC AORTIC ANEURYSM, [...] PAROXYSMAL ATRIAL FIBRILLATION 09/21/2017 BAIMA, BROOKE L TYPECASTING MACHINE OPERATOR Ot I71.2 THORACIC AORTIC ANEURYSM, [...] PAROXYSMAL ATRIAL FIBRILLATION 09/21/2017 BAIMA, BROOKE L TYPECASTING MACHINE OPERATOR Ot I71.2 THORACIC AORTIC ANEURYSM, WITHOUT RUPTUR 09/21/2017 ROSE WATKINS APRN Ot R06.00 DYSPNEA, UNSPECIFIED 09/25/2017 TAINA BROOKE L TYPECASTING MACHINE OPERATOR Ot I07.1 RHEUMATIC TRICUSPID INSUFFICIENCY 09/25/2017 BAIMA, BROOKE L TYPECASTING MACHINE OPERATOR Ot I10 ESSENTIAL (PRIMARY) HYPERTENSION 09/25/2017 BAIMA, BROOKE L TYPECASTING MACHINE OPERATOR Ot I34.0 NONRHEUMATIC MITRAL (VALVE) INSUFFICIENC 09/25/2017 BAIMA, BROOKE L TYPECASTING MACHINE OPERATOR Ot I35.8 OTHER NONRHEUMATIC AORTIC VALVE DISORDER 09/25/2017 BAIMA, BROOKE L TYPECASTING MACHINE OPERATOR Ot I48.92 UNSPECIFIED ATRIAL FLUTTER 09/30/2017 BAIMA, BROOKE L TYPECASTING MACHINE OPERATOR Ot I07.1 RHEUMATIC TRICUSPID INSUFFICIENCY 09/30/2017 BAIMA, BROOKE L TYPECASTING MACHINE OPERATOR Ot I10 ESSENTIAL (PRIMARY) HYPERTENSION 09/30/2017 BAIMA, BROOKE L TYPECASTING MACHINE OPERATOR Ot I34.0 NONRHEUMATIC MITRAL (VALVE) INSUFFICIENC 09/30/2017 BAIMA, BROOKE L TYPECASTING MACHINE OPERATOR Ot I35.8 OTHER NONRHEUMATIC AORTIC VALVE DISORDER 09/30/2017 BAIMA, BROOKE L TYPECASTING MACHINE OPERATOR Ot I48.92 UNSPECIFIED ATRIAL FLUTTER 10/11/2017 BAIMA, BROOKE L TYPECASTING MACHINE OPERATOR Ot I07.1 RHEUMATIC TRICUSPID INSUFFICIENCY 10/11/2017 BAIMA, BROOKE L TYPECASTING MACHINE OPERATOR Ot I10 ESSENTIAL (PRIMARY) HYPERTENSION 10/11/2017 BAIMA, BROOKE L TYPECASTING MACHINE OPERATOR Ot I34.0 NONRHEUMATIC MITRAL (VALVE) INSUFFICIENC 10/11/2017 BROOKE HER TYPECASTING MACHINE OPERATOR Ot I35.8 OTHER NONRHEUMATIC AORTIC VALVE DISORDER 10/11/2017 BROOKE HER TYPECASTING MACHINE OPERATOR Ot I48.92 UNSPECIFIED ATRIAL FLUTTER 02/05/2018 BROOKE HER TYPECASTING MACHINE OPERATOR Ot I07.1 RHEUMATIC TRICUSPID INSUFFICIENCY 02/05/2018 BROOKE HER TYPECASTING MACHINE OPERATOR Ot I10 ESSENTIAL (PRIMARY) HYPERTENSION 02/05/2018 BROOKE HER TYPECASTING MACHINE OPERATOR Ot I34.0 NONRHEUMATIC MITRAL (VALVE) INSUFFICIENC 02/05/2018 BROOKE HER TYPECASTING MACHINE OPERATOR Ot I35.8 OTHER NONRHEUMATIC AORTIC VALVE DISORDER 02/05/2018 BROOKE HER TYPECASTING MACHINE OPERATOR Ot I48.92 UNSPECIFIED ATRIAL FLUTTER [...] PALPITATIONS 02/05/2018 HEYDI HEAD MD, Ot Z79.01 NURSING HOME (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 OF ANTICOAGULANT 02/05/2018 HEYDI HEAD MD Ot Z79.4 NURSING HOME (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 OF INSULIN 02/05/2018 HEYDI HEAD [...] PALPITATIONS 02/07/2018 HEYDI HEAD MD Ot Z79.01 NURSING HOME (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 OF ANTICOAGULANT 02/07/2018 HEYDI HEAD MD, Ot Z79.4 DEBURR TECHNICIAN (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 OF INSULIN 02/07/2018 HEYDI HEAD MD, Ot 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, 02/07/2018 HEYDI HEAD MD Ot Z90.89 ACQUIRED ABSENCE OF OTHER ORGANS 02/07/2018 HEYDI HEAD MD Ot Z98.1 ARTHRODESIS STATUS 02/19/2018 BROOKE HER TYPECASTING MACHINE OPERATOR Ot I07.1 RHEUMATIC TRICUSPID INSUFFICIENCY 02/19/2018 BROOKE HER TYPECASTING MACHINE OPERATOR Ot I10 ESSENTIAL (PRIMARY) HYPERTENSION 02/19/2018 BROOKE HER TYPECASTING MACHINE OPERATOR Ot I34.0 NONRHEUMATIC MITRAL (VALVE) INSUFFICIENC 02/19/2018 BROOKE HER TYPECASTING MACHINE OPERATOR Ot I35.8 OTHER NONRHEUMATIC AORTIC VALVE DISORDER 02/19/2018 BROOKE HER TYPECASTING MACHINE OPERATOR Ot I48.92 UNSPECIFIED ATRIAL FLUTTER 03/13/2018 BROOKE HER L TYPECASTING MACHINE OPERATOR Ot I48.92 UNSPECIFIED ATRIAL FLUTTER 03/13/2018 BROOKE HER TYPECASTING MACHINE OPERATOR Ot R00.2 PALPITATIONS 03/14/2018 BROOKE HER TYPECASTING MACHINE OPERATOR Ot E11.59 TYPE 2 DIABETES MELLITUS WITH OTH CIRCUL 03/14/2018 BROOKE HER L TYPECASTING MACHINE OPERATOR Ot I10 ESSENTIAL (PRIMARY) HYPERTENSION 03/14/2018 BROOKE HER TYPECASTING MACHINE OPERATOR Ot I48.0 PAROXYSMAL ATRIAL FIBRILLATION 03/14/2018 BROOKE HER TYPECASTING MACHINE OPERATOR Ot I71.2 THORACIC AORTIC ANEURYSM, [...] DONOHUE FACC, ALI FACP CCDS Ot Z79.01 NURSING HOME (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 OF ANTICOAGULANT 03/19/2018 YOLY DONOHUE FACC, ALI FACP CCDS Ot Z79.4 DEBURR TECHNICIAN (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 OF INSULIN 03/19/2018 YOLY DONOHUE FACC, ALI FACP CCDS Ot Z79.899 OTHER DEBURR TECHNICIAN (CURRENT) DRUG THERAPY 03/20/2018 YOLY DONOHUE FACC, [...] FREDERICK MD, FACC FACP CCDS Ot Z79.01 NURSING HOME (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 OF ANTICOAGULANT 03/20/2018 JOSE FREDERICK MD, FACC FACP CCDS Ot Z79.4 NURSING HOME (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 OF INSULIN 03/20/2018 JOSE FREDERICK MD, FACC FACP CCDS Ot Z79.899 OTHER NURSING HOME (CURRENT) DRUG THERAPY 05/02/2018 JOHNATHON NEVILLE DEPUTY BRAND INSPECTOR Ot M79.662 PAIN IN LEFT LOWER LEG 05/02/2018 JOHNATHON NEVILLE DEPUTY BRAND INSPECTOR Ot M79.89 OTHER SPECIFIED SOFT TISSUE DISORDERS 05/02/2018 JOHNATHON NEVILLE DEPUTY BRAND INSPECTOR Ot Z86.79 PERSONAL HISTORY OF OTHER DISEASES [...] MD, FACC FACP CCDS Ot Z79.899 OTHER DEBURR TECHNICIAN (CURRENT) DRUG THERAPY 05/13/2018 YOLY MD FACC, [...] BEARDC, ALI FACP CCDS Ot Z79.899 OTHER NURSING HOME (CURRENT) DRUG THERAPY 05/14/2018 YOLY DONOHUE FACC, [...] DONOHUE FACC, ALI FACP CCDS Ot Z79.01 NURSING HOME (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 OF ANTICOAGULANT 05/14/2018 YOLY DONOHUE FACC, ALI FACP CCDS Ot Z79.4 NURSING HOME (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 OF INSULIN 05/15/2018 JOHNATHON NEVILLE DEPUTY BRAND INSPECTOR Ot M79.662 PAIN IN LEFT LOWER LEG 05/15/2018 JOHNATHON NEVILLE DEPUTY BRAND INSPECTOR Ot M79.89 OTHER SPECIFIED SOFT TISSUE DISORDERS 05/15/2018 JOHNATHON NEVILLE DEPUTY BRAND INSPECTOR Ot Z86.79 PERSONAL HISTORY OF OTHER DISEASES [...] DONOHUE FACC, ALI FACP CCDS Ot Z79.01 DEBURR TECHNICIAN (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 OF ANTICOAGULANT 05/20/2018 YOLY DONOHUE FACC, ALI FACP CCDS Ot Z79.4 NURSING HOME (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 OF INSULIN Procedures There is [...] resistant Staphylococcus aureus (MRSA) screening culture NEG [facility] Automated blood complete blood count [...] platelet poor plasma (mass/volume) 0.30 ug/mL 0.00-0.49 Complete blood count (CBC) with automated white blood cell (WBC) differential - 05/30/18 05:25 Blood leukocytes automated count (number/volume) 9.9 10*3/uL 4.3-11.0 Blood erythrocytes automated count (number/volume) 4.92 10*6/uL 4.35-5.85 Venous blood hemoglobin measurement (mass/volume) 14.7 g/dL 13.3-17.7 Blood hematocrit (volume fraction) 43 % 40-54 Automated erythrocyte mean corpuscular volume 87 [foz_us] 80-99 Automated erythrocyte mean corpuscular hemoglobin (mass per erythrocyte) 30 pg 25-34 Automated erythrocyte mean corpuscular hemoglobin concentration measurement ( mass/volume) 34 g/dL 32-36 Automated erythrocyte distribution width ratio 13.8 % 10.0-14.5 Automated blood platelet count (count/volume) 287 10*3/uL 130-400 Automated blood platelet mean volume measurement 9.5 [foz_us] 7.4-10.4 Automated blood neutrophils/100 leukocytes 75 % 42-75 Automated blood lymphocytes/100 leukocytes 13 % 12-44 Blood monocytes/100 leukocytes 11 % 0-12 Automated blood eosinophils/100 leukocytes 2 % 0-10 Automated blood basophils/100 leukocytes 0 % 0-10 Blood neutrophils automated count (number/volume) 7.4 10*3 1.8-7.8 Blood lymphocytes automated count (number/volume) 1.3 10*3 1.0-4.0 Blood monocytes automated count (number/volume) 1.1 10*3 0.0-1.0 Automated eosinophil count 0.2 10*3/uL 0.0-0.3 Automated blood basophil count (count/volume) 0.0 10*3/uL 0.0-0.1 Whole blood basic metabolic panel - 05/30/18 05:25 Serum or plasma sodium measurement (moles/volume) 139 mmol/L 135-145 Serum or plasma potassium measurement (moles/volume) 4.4 mmol/L 3.6-5.0 Serum or plasma chloride measurement (moles/volume) 106 mmol/L 98-107 Carbon dioxide 23 mmol/L 21-32 Serum or plasma anion gap determination (moles/volume) 10 mmol/L 5-14 Serum or plasma urea nitrogen measurement (mass/volume) 29 mg/dL 7-18 Serum or plasma creatinine measurement (mass/volume) 1.02 mg/dL 0.60-1.30 Serum or plasma urea nitrogen/creatinine mass ratio 28 NRG Serum or plasma creatinine measurement with calculation of estimated glomerular filtration rate > NRG Serum or plasma glucose measurement (mass/volume) 133 mg/dL 70-105 Serum or plasma calcium measurement (mass/volume) 9.0 mg/dL 8.5-10.1 Lipid 1996 panel - 05/30/18 05:25 Serum or plasma triglyceride measurement (mass/volume) 55 mg/dL <150 Serum or plasma cholesterol measurement (mass/volume) 183 mg/dL < 200 Serum or plasma cholesterol in HDL measurement (mass/volume) 44 mg/ dL 40-60 Cholesterol in LDL [mass/volume] in serum or plasma by direct assay 135 mg/dL 1-129 Serum or plasma cholesterol in VLDL measurement (mass/volume) 11 mg/ dL 5-40 Capillary blood glucose measurement by glucometer (mass/volume) - 05/30/18 05: 36 Capillary blood glucose measurement by glucometer (mass/volume) 131 mg/dL 70-110 Capillary blood glucose measurement by glucometer (mass/volume) - 05/30/18 14: 23 Capillary blood glucose measurement by glucometer (mass/volume) 153 mg/dL 70-110 Capillary blood glucose measurement by glucometer (mass/volume) - 05/30/18 19: 52 Capillary blood glucose measurement by glucometer (mass/volume) 226 mg/dL 70-110 Capillary blood glucose measurement by glucometer (mass/volume) - 05/31/18 05: 42 Capillary blood glucose measurement by glucometer (mass/volume) 67 mg/dL 70-110 Capillary blood glucose measurement by glucometer (mass/volume) - 05/31/18 09: 39 Capillary blood glucose measurement by glucometer (mass/volume) 197 mg/dL 70-110 Encounters ACCT No. Visit Date/Time Discharge Status Pt. Type Provider Facility Loc./Unit Complaint [id number] 05/14/2018 06:51:00 05/14/2018 13:40:00 DIS Outpatient JOSE FREDERICK MD, FACC, FACP CCDS [facility] CATH SOB,A FLUTTER ,HTN,DM,FATIGUE,ANGINA [id number] 05/07/2018 09:41:00 05/07/2018 15:15:00 DIS Outpatient JOSE FREDERICK MD, FACC, FACP CCDS [facility] CATH AFIB [id number] 05/01/2018 09:15:00 05/01/2018 23:59:59 CLS Outpatient JOHNATHON NEVILLE APRN [facility] CARD I49.9 IRREGULAR HEART BEAT [id number] 03/19/2018 09:02:00 03/19/2018 14:00:00 DIS Outpatient JOSE FREDERICK MD, FACC, FACP CCDS [facility] CATH ATRIAL FLUTTER,HTN [id number] 03/12/2018 07:33:00 03/12/2018 23:59:59 CLS Outpatient BROOKE HER [facility] CARD PALPITATIONS, PAROXYSMAL ATRIAL FLUTTER [id number] 02/21/2018 14:51:00 02/21/2018 23:59:59 CLS Outpatient BROOKE HERP [facility] CARD AFIB,HTN, ASCENDING AORTIC ANEURYSM [id number] 02/05/2018 08:24:00 02/05/2018 10:44:00 DIS Emergency SONIDO DONOHUE, HEYDI Mcclellan [facility] ER FLUTTERING IN CHEST [id number] 09/24/2017 11:46:00 09/24/2017 23:59:59 CLS Outpatient BROOKE HERP [facility] CARD I48.92 PAROXYSMAL ATRIAL FLUTTER [id number] 04/10/2016 15:17:00 04/10/2016 23:59:59 CLS Outpatient ROSE WATKINS APRN [facility] RT DYSPNEA [id number] 07/27/2015 14:14:00 07/27/2015 23:59:59 CLS Outpatient BROOKE HERP [facility] RAD ANEURYSM OF THE AORTA [id number] 07/13/2015 08:31:00 07/13/2015 23:59:59 CLS Outpatient YOLY DONOHUE FACC, JOSE VILLALPANDO CCDS [facility] CARD AFIB [id number] 05/01/2015 19:30:00 05/03/2015 19:38:00 DIS Inpatient SULAIMAN CARRINGTON MD [facility] ICU A-FLUTTER,RVR,CHEST PAIN [id number] 05/29/2018 17:26:00 Document Registration [id number] 06/24/2012 09:04:00 Document Registration [id number] 06/21/2012 08:23:00 Document Registration [id number] 10/26/2010 11:05:00 Document Registration
== END 2018-05-31 10:55 | disposition home or self-care (01) ==
LOC: EDUNIT# 17:06 → ER 17:07 → 4TH 20:08 → UNDOADMOB 20:08 → 4TH 20:40 → UNDOADMOB 20:40 → UNDODISOB 05-31 11:20
PROVIDERS: ADMIT Internal Medicine; ATTEND Internal Medicine
DX: I30.9 Acute pericarditis, unspecified (principal); G47.33 Obstructive sleep apnea (adult) (pediatric); E11.9 Type 2 diabetes mellitus without complications; I10 Essential (primary) hypertension; E78.5 Hyperlipidemia, unspecified; F41.9 Anxiety disorder, unspecified; R06.02 Shortness of breath; R07.9 Chest pain, unspecified; F32.9 Major depressive disorder, single episode, unspecified; E66.9 Obesity, unspecified; R60.0 Localized edema; Z68.38 Body mass index [BMI] 38.0-38.9, adult; Z79.4 Long term (current) use of insulin
CPT/HCPCS: 36415; 71045; 71275; 74177; 80048; 80053; 80061; 82962; 83735; 83874; 83880; 84484; 85025; 85379; 85610; 85730; 93005; 93041; 93306; G0378

== ENCOUNTER → 2018-06-18 | Outpatient (CLI) | payer BC ==
[~2018-06-18] MED LIST changes: +DILT180C PO; +IBUP-844 PO; +METO-370 PO; +METO50CA PO
== END ==
LOC: LAB 10:02
PROVIDERS: ATTEND Surgery
DX: E11.622 Type 2 diabetes mellitus with other skin ulcer (principal); L97.222 Non-pressure chronic ulcer of left calf with fat layer exposed
CPT/HCPCS: 36415; 83036

== ENCOUNTER → 2018-06-18 | Outpatient (CLI) | payer BC | LOC: WOUNDCARE 08:07 | PROVIDERS: ATTEND Surgery | DX: E11.622 Type 2 diabetes mellitus with other skin ulcer (principal); I87.332 Chronic venous hypertension (idiopathic) with ulcer and inflammation of left lower extremity; L97.222 Non-pressure chronic ulcer of left calf with fat layer exposed; I48.2 Chronic atrial fibrillation | CPT/HCPCS: 11042 ==

== ENCOUNTER → 2018-06-25 | Outpatient (CLI) | payer BC | LOC: WOUNDCARE 08:13 | PROVIDERS: ATTEND Nurse Practitioner | DX: E11.622 Type 2 diabetes mellitus with other skin ulcer (principal); I48.2 Chronic atrial fibrillation; L97.222 Non-pressure chronic ulcer of left calf with fat layer exposed; I87.332 Chronic venous hypertension (idiopathic) with ulcer and inflammation of left lower extremity | CPT/HCPCS: 99212 ==

== ENCOUNTER → 2018-12-12 | Outpatient (CLI) | payer BC ==
--- NOTE | 2018-12-12 11:25 | Diagnostic Imaging Report ---
PROCEDURE: MRI left upper extremity without contrast. TECHNIQUE: Multiplanar, multisequence non contrast-enhanced MRI of the left upper extremity was accomplished. INDICATION: Left shoulder pain with decreased range of motion. FINDINGS: There is no plain film study for direct comparison. Low signal lesion is seen just deep to the deltoid muscle at the level of the greater tuberosity which may represent calcification. This may be secondary to calcific tendinitis or synovitis. The rotator cuff appears to be intact. There is no significant joint fluid. No biceps tendon abnormality is identified. Evaluation of labrum is somewhat limited without intra-articular fluid. There is no definite displacement or disruption. Very mild acromioclavicular degenerative changes are present. There is no marrow signal abnormality. IMPRESSION: Probable calcification adjacent to greater tuberosity which may reflect calcific tendinitis or synovitis. There are mild degenerative changes at the acromioclavicular joint without other evidence of internal derangement. Dictated by: Dictated on workstation # [id number]
== END ==
LOC: RAD 08:38
PROVIDERS: ATTEND Orthopaedic Surgery
DX: M19.012 Primary osteoarthritis, left shoulder (principal); M75.112 Incomplete rotator cuff tear or rupture of left shoulder, not specified as traumatic
CPT/HCPCS: 73221

== ENCOUNTER 2021-04-24 00:27 | Emergency (ER) | payer BC ==
[~2021-04-24] VITALS: Ht 185 cm; Wt 112.0 kg
[~2021-04-24 00:27] MED LIST changes: -DILT180C PO; +DILT180C85 PO; +ESCI-2 PO; -ESCI10TA55 PO; -METO-370 PO; -METO-387 PO; +METO50TA7 PO; +MTP25TSR PO
[2021-04-24 00:44] LABS: BASOPHILS # (AUTO) 0.1 10^3/uL (0.0-0.1); BASOPHILS % (AUTO) 0 % (0-10); EOSINOPHILS # (AUTO) 0.2 10^3/uL (0.0-0.3); EOSINOPHILS % (AUTO) 1 % (0-10); HEMATOCRIT 45 % (40-54); HEMOGLOBIN 15.7 g/dL (13.3-17.7); LYMPHOCYTES # (AUTO) 1.9 10^3/uL (1.0-4.0); LYMPHOCYTES % (AUTO) 13 % (12-44); MEAN CORPUSCULAR HEMOGLOBIN 31 pg (25-34); MEAN CORPUSCULAR HGB CONC 35 g/dL (32-36); MEAN CORPUSCULAR VOLUME 91 fL (80-99); MEAN PLATELET VOLUME 9.2 fL (9.0-12.2); MONOCYTES # (AUTO) 0.9 10^3/uL (0.0-1.0); MONOCYTES % (AUTO) 6 % (0-12); NEUTROPHILS # (AUTO) 11.9 10^3/uL (1.8-7.8); NEUTROPHILS % (AUTO) 79 % (42-75); PLATELET COUNT 347 10^3/uL (130-400); WHITE BLOOD COUNT 15.1 10^3/uL (4.3-11.0)
[2021-04-24 00:50] LABS: ALBUMIN 4.2 GM/DL (3.2-4.5)
[2021-04-24 00:51] LABS: BILIRUBIN,URINE NEGATIVE (NEGATIVE); CLARITY,URINE CLEAR; COLOR,URINE YELLOW; GLUCOSE, URINE (UA) 1+ (NEGATIVE); KETONES,URINE NEGATIVE (NEGATIVE); LEUKOCYTE ESTERASE ,URINE NEGATIVE (NEGATIVE); NITRITE,URINE NEGATIVE (NEGATIVE); PH,URINE 5.5 (5-9); PROTEIN,URINE NEGATIVE (NEGATIVE)
[2021-04-24 00:51] LABS: POTASSIUM 3.8 MMOL/L (3.6-5.0)
[2021-04-24 00:52] LABS: CALCIUM 9.3 MG/DL (8.5-10.1)
[2021-04-24 00:53] LABS: TOTAL PROTEIN 6.4 GM/DL (6.4-8.2)
[2021-04-24 00:55] LABS: BILIRUBIN,TOTAL 0.4 MG/DL (0.1-1.0)
[2021-04-24 00:57] LABS: CREATININE SERUM 1.03 MG/DL (0.60-1.30)
[2021-04-24 00:59] LABS: MAGNESIUM 1.9 MG/DL (1.6-2.4)
[2021-04-24 01:01] LABS: BACTERIA,URINE NEGATIVE /HPF; SQUAMOUS EPITHELIAL CELL,UR 0-2 /HPF
[2021-04-24 01:15] LABS: BAND NEUTROPHILS 2 %; EOSINOPHILS % (MANUAL) 2 %; LYMPHOCYTES % (MANUAL) 12 %; MONOCYTES % (MANUAL) 7 %; NEUTROPHILS % (MANUAL) 77 %; RBC MORPH NORMAL
--- NOTE | 2021-04-24 01:38 | ED General ---
General Chief Complaint: Glucose Problems Stated Complaint: HYPOGLYCEMIA Nursing Triage Note: TO ED [facility]IA [facility] TO ROOM 5. EMS STATES ACTIVATED TO RESIDENCE AND PT WAS UNRESPONSIVE WITH SNORE LIKE RESPIRATIONS. HX OF DM, BLOOD SUGAR METER READ "LOW". PT WAS GIVEN 25G OF D50 BY EMS AND WHEN PT BECAME RESPONSIVE AND ALERT HIS BLOOD SUGAR WAS 186 MG/DL AND HE ATE A PEANUT BUTTER SANDWHICH AND DRANK LEMONADE. 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 Allergies and Home Medications Allergies Coded Allergies: flecainide (Verified Allergy, Unknown, 04/24/21) Home Medications Alprazolam 0.5 Mg Tablet, 0.5 MG PO Q8H PRN for ANXIETY, (Reported) Apixaban 5 Mg Tablet, 5 MG PO BID, (Reported) Diltiazem HCl 180 Mg Cap.er.24h, 180 MG PO DAILY, (Reported) Escitalopram Oxalate 10 Mg Tablet, 10 MG PO HS, (Reported) Ibuprofen 600 Mg Tablet, 600 MG PO TIDPC Prescribed by: LUIS EDUARDO KUNZ on 05/31/18 1054 Insulin Aspart 300 Units/3 Ml Solution, 16 UNITS SC AC, (Reported) Insulin Detemir 100 Unit/1 Ml Insuln.pen, 48 UNITS SC HS, (Reported) Metformin HCl 1,000 Mg Tablet, 1,000 MG PO BID WITH MEALS, (Reported) Metoprolol Succinate 50 Mg Tab.er.24h, 50 MG PO HS, (Reported) Niacin (Inositol Niacinate) 500 Mg Capsule, 1,000 MG PO DAILY, (Reported) TAKES 2 (500MG) CAPSULES Past Arnrtah-Lnzlle-Wxlxga Hx Patient Social History Tobacco Use?: No Substance use?: No Alcohol Use?: No Pt feels they are or have been: No Seasonal Allergies Seasonal Allergies: No Past Medical History Surgery/Hospitalization HX: ABLATIONS Surgeries: Yes (NECK C4-5, CARDIOVERSION X 2. HEART CATH. ABLATION) Orthopedic Respiratory: Yes (C-PAP) Sleep Apnea Currently Using CPAP: Yes Cardiac: Yes (HX OF AORTIC ANEURYSM;rt atrial ablation 05/28/18) Atrial Fibrillation, High Cholesterol, Hypertension Neurological: No Reproductive Disorders: No Genitourinary: No Gastrointestinal: No Musculoskeletal: No Endocrine: Yes Diabetes, Insulin dep HEENT: No Cancer: No Psychosocial: No Anxiety, Depression Integumentary: No Blood Disorders: No Family Medical History Diabetes mellitus 19 MOTHER Lip cancer 19 FATHER Parkinson's disease 19 FATHER Diabetes Physical Exam Vital Signs Vital Signs - First Documented 04/24/21 00:30 Pulse 71 Resp 16 B/P (MAP) 164/74 (104) O2 Delivery Room Air Capillary Refill : Less Than 3 Seconds Height, Weight, BMI Height: 6'1.00" Weight: 273lbs. 1.0oz. 123.153019it; 32.00 BMI Method:Stated Progress/Results/Core Measures Suspected Sepsis SIRS Temperature: Pulse: 71 Respiratory Rate: 16 Laboratory Tests 04/24/21 00:35: White Blood Count 15.1H Blood Pressure 164 /74 Mean: 104 Laboratory Tests 04/24/21 00:35: Creatinine 1.03, Platelet Count 347, Total Bilirubin 0.4 Results/Orders Lab Results Laboratory Tests Test 04/24/21 00:35 04/24/21 00:46 Range/Units White Blood Count 15.1 H 4.3-11.0 10^3/uL Red Blood Count 5.01 4.30-5.52 10^6/uL Hemoglobin 15.7 13.3-17.7 g/dL Hematocrit 45 40-54 % Mean Corpuscular Volume 91 80-99 fL Mean Corpuscular Hemoglobin 31 25-34 pg Mean Corpuscular Hemoglobin Concent 35 32-36 g/dL Red Cell Distribution Width 12.8 10.0-14.5 % Platelet Count 347 130-400 10^3/uL Mean Platelet Volume 9.2 9.0-12.2 fL Immature Granulocyte % (Auto) 1 % Neutrophils (%) (Auto) 79 H 42-75 % Lymphocytes (%) (Auto) 13 12-44 % Monocytes (%) (Auto) 6 0-12 % Eosinophils (%) (Auto) 1 0-10 % Basophils (%) (Auto) 0 0-10 % Neutrophils # (Auto) 11.9 H 1.8-7.8 10^3/uL Lymphocytes # (Auto) 1.9 1.0-4.0 10^3/uL Monocytes # (Auto) 0.9 0.0-1.0 10^3/uL Eosinophils # (Auto) 0.2 0.0-0.3 10^3/uL Basophils # (Auto) 0.1 0.0-0.1 10^3/uL Immature Granulocyte # (Auto) 0.1 0.0-0.1 10^3/uL Neutrophils % (Manual) 77 % Lymphocytes % (Manual) 12 % Monocytes % (Manual) 7 % Eosinophils % (Manual) 2 % Band Neutrophils 2 % Blood Morphology Comment NORMAL Sodium Level 138 135-145 MMOL/L Potassium Level 3.8 3.6-5.0 MMOL/L Chloride Level 102 98-107 MMOL/L Carbon Dioxide Level 24 21-32 MMOL/L Anion Gap 12 5-14 MMOL/L Blood Urea Nitrogen 16 7-18 MG/DL Creatinine 1.03 0.60-1.30 MG/DL Estimat Glomerular Filtration Rate 73 BUN/Creatinine Ratio 16 Glucose Level 150 H 70-105 MG/DL Glucometer 152 H 70-110 MG/DL Calcium Level 9.3 8.5-10.1 MG/DL Corrected Calcium 9.1 8.5-10.1 MG/DL Magnesium Level 1.9 1.6-2.4 MG/DL Total Bilirubin 0.4 0.1-1.0 MG/DL Aspartate Amino Transf (AST/SGOT) 22 5-34 U/L Alanine Aminotransferase (ALT/SGPT) 26 0-55 U/L Alkaline Phosphatase 80 40-136 U/L Total Protein 6.4 6.4-8.2 GM/DL Albumin 4.2 3.2-4.5 GM/DL Amylase Level 65 25-125 U/L Lipase 47 8-78 U/L Urine Color YELLOW Urine Clarity CLEAR Urine pH 5.5 5-9 Urine Specific [place] 1.020 1.016-1.022 Urine Protein NEGATIVE NEGATIVE Urine Glucose (UA) 1+ H NEGATIVE Urine Ketones NEGATIVE NEGATIVE Urine Nitrite NEGATIVE NEGATIVE Urine Bilirubin NEGATIVE NEGATIVE Urine Urobilinogen 0.2 < = 1.0 MG/DL Urine Leukocyte Esterase NEGATIVE NEGATIVE Urine RBC (Auto) NEGATIVE NEGATIVE Urine RBC NONE /HPF Urine WBC NONE /HPF Urine Squamous Epithelial Cells 0-2 /HPF Urine Crystals NONE /LPF Urine Bacteria NEGATIVE /HPF Urine Casts NONE /LPF Urine Mucus SMALL H /LPF Urine Culture Indicated NO My Orders Orders - JASBIR BOJORQUEZ DO Accucheck Stat ONCE (04/24/21 00:30) Ed Iv/Invasive Line Start (04/24/21 00:30) Monitor-Rhythm Ecg Trace Only (04/24/21 00:30) Amylase (04/24/21 00:30) Cbc With Automated Diff (04/24/21 00:30) Comprehensive Metabolic Panel (04/24/21 00:30) Lipase (04/24/21 00:30) Magnesium (04/24/21 00:30) Ua Culture If Indicated (04/24/21 00:30) Manual Differential (04/24/21 00:35) Accucheck Stat ONCE (04/24/21 01:38) Vital Signs/I&O 04/24/21 00:30 Pulse 71 Resp 16 B/P (MAP) 164/74 (104) O2 Delivery Room Air Capillary Refill : Less Than 3 Seconds Blood Pressure Mean: 104 Point of Care Testing Finger Stick Blood Glucose: 152 Blood Glucose Action Taken: DR. BOJORQUEZ NOTIFIED Departure Impression Primary Impression: Hypoglycemia associated with diabetes Additional Impression: ONGOING NAUSEA Disposition: HOME, SELF-CARE Condition: Improved Departure-Patient Inst. Decision time for Depature: 01:35 Referrals: ZORAIDA CHAVEZ DO Patient Instructions: Blood Glucose Monitoring, Guide to Eating When You Have Diabetes, HYPOGLYCEMIA Add. Discharge Instructions: CHECK YOUR BLOOD SUGAR 4 TIMES A DAY--BEFORE EACH MEAL AND AT BEDTIME INCREASE YOUR PROTEIN INTAKE FOLLOW UP WITH DR. CHAVEZ NEXT WEEK FOR FURTHER CARE RETURN TO ER IF SYMPTOMS WORSEN All discharge instructions reviewed with patient and/or family. Voiced understanding. Scripts Pantoprazole Sodium (Protonix) 40 Mg Tablet. 40 MG PO DAILY, #15 TAB Prov: JASBIR BOJORQUEZ DO 04/24/21 Ondansetron (Ondansetron Odt) 8 Mg Tab.rapdis 8 MG PO Q6H, #10 TAB Prov: JASBIR BOJORQUEZ DO 04/24/21 JASBIR BOJORQUEZ DO Apr 24, 2021 01:38
[2021-04-24] MEDS ORDERED: ONDA8TAB13 PO (01:44)
[2021-04-24] MEDS ORDERED: PANT40TA2 PO (01:44)
[2021-04-24 01:54] VITALS: BP 157/81
== END 2021-04-24 01:54 | disposition home or self-care (01) ==
LOC: EDUNIT# 00:27 → ER 00:28
DX: E11.649 Type 2 diabetes mellitus with hypoglycemia without coma (principal); G47.30 Sleep apnea, unspecified; I48.91 Unspecified atrial fibrillation; I10 Essential (primary) hypertension; F41.9 Anxiety disorder, unspecified; F32.9 Major depressive disorder, single episode, unspecified; Z79.4 Long term (current) use of insulin; Z79.01 Long term (current) use of anticoagulants; Z79.899 Other long term (current) drug therapy
CPT/HCPCS: 36415; 80053; 81000; 82150; 82947; 83690; 83735; 85007; 85027; 93041